=== PATIENT | female | born 1975 | race Caucasian/White ===

== ENCOUNTER 2021-10-24 10:16 | Emergency (ER) | payer SELFPAY ==
--- OUTSIDE RECORDS SUMMARY | 2021-10-24 10:21 | XMS REPORT | Continuity of Care Document ---
:1975 Author Organization [facility] Address [address] [place] [address] Dr. Isaacs [address] [place] [id number] Care Team Providers Name Role Phone Hui PAC, S Attending Clinician Veronica INDUSTRY CONSULTANT, B Attending Clinician Doctor Unassigned, Name Attending Clinician Unavailable Ba Attending Clinician Provider, Urgent Care Attending Clinician Unavailable Jose G VARGAS Attending Clinician JOSE G Attending Clinician Unavailable Lexx JO Attending Clinician Pietro JO Attending Clinician LEXX Attending Clinician Unavailable Juliann HORTONP, T Attending Clinician Pietro JO Admitting Clinician Problems Condition Condition Condition Status Onset Resolution Last Treating Co mments Source Name Details Category Date Date Treatment Clinician Date Intentiona Intentiona Disease Active U nivers l l 5-02 [place]y [place]hen[place] amine amine 00 Medical overdose overdose Branch IUFD IUFD Disease Active Univers (intrauter (intrauter 04-02 [place] ) 00 Medical [place] Allergies, Adverse Reactions, Alerts Allergy Allergy Status Severity Reaction(s) Onset Inactive Treating Comm ents Source Name Type Date Date Clinician Diphenhy Propensi Active Other - See PT passe s Univers dramine ty to comments 6 out ity of Hcl adverse 00:00: [place] reaction 00 Medical s Branch DIPHENHY DRUG Active Dizziness Unive rs DRAMINE INGREDI 6- ity of HCL 00:00: [place] 00 Medical Branch Social History Social Habit Start Date Stop Date Quantity Comments Source Exposure to Not sure [facility] SARS-CoV-2 (event) Medica l Branch Sex Assigned At [facility] Medical Branch Tobacco use and 2020-11-15 2020-11-15 Never used [facility] exposure 00:00:00 00:00:00 Medical Branch History [facility] 2020-02-11 2020-02-11 13 [facility] Education 00:00:00 00:00:00 Medical Branch History [facility] 2020-02-11 2020-02-11 4 [facility] Financial 00:00:00 00:00:00 Medical Branch History [facility] Food 2020-02-11 2020-02-[address] [facility] ity [facility] Worry 00:00:00 00:00:00 Medical Branch History [facility] Food 2020-02-11 2020-02-[address] [facility] ity [facility] Scarcity 00:00:00 00:00:00 Medical Branch History [facility] 2020-02-11 2020-02-11 2 [facility] Transport Med 00:00:00 00:00:00 Medical Bra nch History [facility] 2020-02-11 2020-02-11 2 [facility] Transport Non-Med 00:00:00 00:00:00 Medical Branch Smoking Status Start Date Stop Date Source Never smoker [facility] Branch Unknown if ever smoked [facility] Medical [place] Medications Ordered Filled Start Stop Current Ordering Indication Dosage Frequency Signature Comments Components Source Medication Medication Date Date Medication? Clinician (SIG) Name Name traMADoL No 50mg 50 mg, Univer s (ULTRAM) 11-16 Oral, ity of tablet 50 00:00: 23:02 ONCE, 1 [place] mg 00 :00 dose, Evel[facility] Medical 11/15/20 at Branch 1800, Routine ondansetron 2020- No 4mg 4 mg, Slow Univers (ZOFRAN 2- IV Push, ity of (PF)) 21:15: 20:15 ONCE, 1 [place] injection 4 00 :00 dose, Evelina Med ical mg 11/15/20 at Branch 1515, ALFREDITO traMADoL 50 Yes [id number] 50mg Take 1 Univ ers mg tablet 2-04 tablet by ity o f 00:00: mouth [place] 00 every 6 Medical (six) Branch hours as needed for Pain (scale 7-10) for up to 14 doses. Indication s: acute pain ondansetron Yes [id number] 4mg Take 1 Univers (ZOFRAN 2-04 tablet by ity of ODT) 4 mg 00:00: mouth [place] disintegrat 00 every 8 Medic al ing tablet (eight) Branch hours as needed for Nausea and Vomiting (N/V). esomeprazol Yes [id number] 20mg Take 20 mg Univers e (NEXIUM) 2-04 by mouth ity o f 20 mg 00:00: daily [place] capsule 00 before a Medical meal. Branch cyclobenzap 2019-10- No 10mg 10 mg, Uni vers rine 2-30 12-30 Oral, ity of (FLEXERIL) 22:45: 21:40 ONCE, 1 Good as tablet 10 00 :00 dose, Wed Medic al mg 10/10/20 Branch at 1645, Routine ketorolac 2019-10- No 30mg 30 mg, Unive rs (TORADOL) 230 12-30 Intramuscu ity of injection 22:45: 21:39 lar, ONCE, [place] 30 mg 00 :00 1 dose, Medical Wed Branch 10/10/20 at 1645, ALFREDITO
Fa culty member approving Restricted medication : SAGAR MOORE methocarbam 2019-10 Yes [id number] 750mg Take 1 Univers oL 2-30 tablet by ity of (ROBAXIN-75 00:00: mouth 4 Good as 0) 750 mg 00 (four) Medical tablet times Branch daily as needed for Pain (scale 7-10). ibuprofen 2019-10 Yes [id number] 800mg Take 1 Univers 800 mg 2-30 tablet by ity of tablet 00:00: mouth [place] 00 every 8 Medical (eight) Branch hours as needed for Pain (scale 4-6). methocarbam 2019-10 Yes [id number] 750mg Take 1 Univers oL 2-30 tablet by ity of (ROBAXIN-75 00:00: mouth 4 Good as 0) 750 mg 00 (four) Medical tablet times Branch daily as needed for Pain (scale 7-10). ibuprofen 2019-10 Yes [id number] 800mg Take 1 Univers 800 mg 2-30 tablet by ity of tablet 00:00: mouth [place] 00 every 8 Medical (eight) Branch hours as needed for Pain (scale 4-6). metoprolol 2019-2019- No [id number] 50mg Take 1 Univers tartrate 50 - 06-04 tablet by it y of mg tablet 00:00: 04:59 mouth 2 [place] 00 :00 (two) Medical times Branch daily for 30 days. metoprolol 2019-2019- No [id number] 50mg Take 1 Univers tartrate 50 - 06-04 tablet by it y of mg tablet 00:00: 04:59 mouth 2 [place] 00 :00 (two) Medical times Branch daily for 30 days. cefdinir 2019- No 300mg 300 mg, Univ ers (OMNICEF) 02-11 05-06 Oral, ity of capsule 300 15:00: 12:59 Q12H, 6 [place] mg 00 :00 doses, Medical First dose Branch on [place] 02/12/20 at 1000, Last dose on Thu02/14/20 at 2000, ALFREDITO
Reason for Anti-Infec tive: Documented Infection< br>Documen jeovanny Infection Site: Urine<b r>Duration of Therapy: Other (see Comments) amLODIPine Yes 5mg 5 mg, Univer s (NORVASC) 5-03 Oral, ity of tablet 5 mg 14:00: DAILY, [place] 00 First dose Medical on [facility] 02/12/20 at 0900, Until Discontinu ed, Routine cefTRIAXone 2019- No 1000mg 1,000 mg, Univers (ROCEPHIN) 02-11 05-03 IV ity of 1,000 mg in 14:00: 14:47 [place], [place] NaCl 0.9% 00 :17 DAILY, Medical (NS) 50 mL First dose [facility] MINI-BAG on [place] 02/12/20 at 0900, Until Discontinu ed, 50 mL
Reas on for Anti-Infec tive: Documented Infection< br>Documen jeovanny Infection Site: Urine
D uration of Therapy: Other (see Comments) LORazepam 2019-0 Yes 1mg 1 mg, Slow Un quintin (ATIVAN) 5-03 IV Push, ity of injection 1 06:10: Q4HPRN, Good as mg 26 Starting Medical [place] 02/12/20 Branch at 0110, Until Discontinu ed, STAT, Agitation D5W 0.45% 2020-0 Yes IV Univers NaCl -03 Infusion, ity of (1/2NS) 1 L 02:30: at 125 [place] + KCL 20 00 mL/hr, Medical mEq CONTINUOUS Branch , Starting 02/11/20 at 2130, Until Discontinu ed, Routine KCL 2019-0 2020- No 10meq 10 mEq, IV Unive rs (POTASSIUM 02-11- Piggyback, it y of CHLORIDE) 02:00: 03:30 Q1H, 2 [place] 10 mEq in 00 :00 doses, Medical NaCl 0.9% First dose Bran ch (NS) 100 mL on Sat piggyback 02/11/20 at 2100, Last dose on 02/11/20 at 2200, 100 mL glucagon 2019-0 Yes 1mg 1 mg, Univers (GLUCAGEN 02-11 Intramuscu ity of DIAGNOSTIC 01:09: lar, PRN, [place] KIT) 29 Starting Medical injection 1 02/11/20 Br anch mg at 2008, Until Discontinu ed, ALFREDITO, Blood Glucose < or = 70 mg/dL and patient is unable to swallow or has mental changes. dextrose 50 2019-0 Yes 25mL 25 mL, Univ ers % in water 03 Slow IV ity of (D50W) 01:09: Push, PRN, [place] injection 29 Starting Medica l 25 mL 02/11/20 Branch at 2008, Until Discontinu ed, ALFREDITO, Blood Glucose < or = 70 mg/dL and patient is unable to swallow or has mental status changes. NaCl 0.9% 2019-0 2020- No 1000mL at 999 Uni vers (NS) bolus 02-11-03 mL/hr, ity of infusion 00:15: 00:40 1,000 mL, Good as 1,000 mL 00 :00 IV Medical Infusion, Branch ONCE, 1 dose, 02/11/20 at 191, STAT LORazepam 2019-0 2020- No 1mg 1 mg, Slow U nivers (ATIVAN) 02-11 05-02 IV Push, ity of injection 1 00:15: 23:15 ONCE, 1 [place] mg 00 :00 dose, Sat Medical 02/11/20 at Branch 1915, STAT LORazepam 2019-0 Yes [id number] .5mg Take 1 Un quintin 0.5 mg 5-03 tablet by ity of tablet 00:00: mouth 2 (two) Medical times Branch daily as needed for Anxiety. LORazepam 2020-0 Yes [id number] .5mg Take 1 Un quintin 0.5 mg 5-03 tablet by ity of tablet 00:00: mouth 2 00 (two) Medical times Branch daily as needed for Anxiety. LORazepam 2020-0 Yes [id number] .5mg Take 1 Un quintin 0.5 mg 5-03 tablet by ity of tablet 00:00: mouth 2 (two) Medical times Branch daily as needed for Anxiety. LORazepam 2020-0 Yes [id number] .5mg Take 1 Un quintin 0.5 mg 5-03 tablet by ity of tablet 00:00: mouth 2 (two) Medical times Branch daily as needed for Anxiety. LORazepam 2020-0 Yes [id number] .5mg Take 1 Un quintin 0.5 mg 5-03 tablet by ity of tablet 00:00: mouth 2 (two) Medical times Branch daily as needed for Anxiety. LORazepam 2020-0 Yes [id number] .5mg Take 1 Un quintin 0.5 mg 5-03 tablet by ity of tablet 00:00: mouth 2 (two) Medical times Branch daily as needed for Anxiety. cefdinir 2020-0 2020- No [id number] 300mg Take 1 U nivers 300 mg 5-03 05-07 capsule by ity of capsule 00:00: 04:59 mouth [place] 00 :00 every 12 Medical (twelve) Branch hours for 3 days. cefdinir 2020-0 2020- No [id number] 300mg Take 1 U nivers 300 mg 5-03 05-07 capsule by ity of capsule 00:00: 04:59 mouth [place] 00 :00 every 12 Medical (twelve) Branch hours for 3 days. cefdinir 2020-0 2020- No [id number] 300mg Take 1 U nivers 300 mg 5-03 05-07 capsule by ity of capsule 00:00: 04:59 mouth [place] 00 :00 every 12 Medical (twelve) Branch hours for 3 days. KCL 2020-0 2020- No 10meq 10 mEq, IV Unive rs (POTASSIUM 5-02 05-02 Piggyback, it y of CHLORIDE) 23:30: 22:46 ONCE, 1 [place] 10 mEq in 00 :00 dose, Sat Medic al NaCl 0.9% 02/11/20 at [facility] h (NS) 100 mL 1830, 100 piggyback mL cefTRIAXone 2019- No 1000mg 1,000 mg, Univers (ROCEPHIN) 02-10 IV ity of 1,000 mg in 23:30: 23:16 Piggyback, [place] NaCl 0.9% 00 :00 ONCE, 1 Medical (NS) 50 mL dose, Sat [facility] ch MINI-BAG 02/11/20 at 1830, 50 mL
Reas on for Anti-Infec tive: Documented Infection< br>Documen jeovanny Infection Site: Urine
D uration of Therapy: Other (see Comments) LORazepam 2019- No 1mg 1 mg, Slow U nivers (ATIVAN) 02-10 IV Push, ity of injection 1 22:45: 21:50 ONCE, 1 [place] mg 00 :00 dose, Sat Medical 02/11/20 at [place] 1745, STAT ondansetron 2019- No 4mg 4 mg, Slow Univers (ZOFRAN 02-10 IV Push, ity of (PF)) 22:45: 21:50 ONCE, 1 [place] injection 4 00 :00 dose, Sat Med ical mg 02/11/20 at Branch 1745, ALFREDITO activated 2019- No 50g 50 g, Univer s charcoal-so 02-10 Oral, ity of rbitol 22:45: 21:40 ONCE, 1 [place] (ACTIDOSE/S 00 :00 dose, Sat Med ical ORBITAL) 25 02/11/20 at [facility] gram/120 mL 1745, ALFREDITO suspension 50 g amLODIPine 2019-0 Yes [id number] 5mg Take 1 U nivers 5 mg tablet 1-28 tablet by ity of 00:00: mouth [place] 00 daily. Medical Branch amLODIPine 2019-0 Yes [id number] 5mg Take 1 U nivers 5 mg tablet 1-28 tablet by ity of 00:00: mouth [place] 00 daily. Medical Branch amLODIPine 2019-0 Yes [id number] 5mg Take 1 U nivers 5 mg tablet 1-28 tablet by ity of 00:00: mouth [place] 00 daily. Medical Branch amLODIPine 2020-0 Yes [id number] 5mg Take 1 U nivers 5 mg tablet 1-28 tablet by ity of 00:00: mouth [place] 00 daily. Medical Branch amLODIPine 2020-0 Yes [id number] 5mg Take 1 U nivers 5 mg tablet 1-28 tablet by ity of 00:00: mouth [place] 00 daily. Medical Branch amLODIPine 2020-0 Yes [id number] 5mg Take 1 U nivers 5 mg tablet 1-28 tablet by ity of 00:00: mouth [place] 00 daily. Medical Branch amLODIPine 2020-0 Yes [id number] 5mg Take 1 U nivers 5 mg tablet 1-28 tablet by ity of 00:00: mouth [place] 00 daily. Medical Branch ibuprofen 2019-0 Yes [id number] 800mg Take 1 U nivers 800 mg 2-19 tablet by ity of tablet 00:00: mouth [place] 00 every 6 Medical (six) Branch hours as needed for Pain (scale 4-6). ibuprofen 2019-0 Yes [id number] 800mg Take 1 U nivers 800 mg 2-19 tablet by ity of tablet 00:00: mouth [place] 00 every 6 Medical (six) Branch hours as needed for Pain (scale 4-6). ibuprofen 2019-0 Yes [id number] 800mg Take 1 U nivers 800 mg 2-19 tablet by ity of tablet 00:00: mouth [place] 00 every 6 Medical (six) Branch hours as needed for Pain (scale 4-6). ibuprofen 2019-0 Yes [id number] 800mg Take 1 U nivers 800 mg 2-19 tablet by ity of tablet 00:00: mouth [place] 00 every 6 Medical (six) Branch hours as needed for Pain (scale 4-6). ibuprofen 2019-0 Yes [id number] 800mg Take 1 U nivers 800 mg 2-19 tablet by ity of tablet 00:00: mouth [place] 00 every 6 Medical (six) Branch hours as needed for Pain (scale 4-6). ibuprofen 2019-0 Yes [id number] 800mg Take 1 U nivers 800 mg 2-19 tablet by ity of tablet 00:00: mouth [place] 00 every 6 Medical (six) Branch hours as needed for Pain (scale 4-6). ibuprofen 2019-0 Yes [id number] 800mg Take 1 U nivers 800 mg 2-19 tablet by ity of tablet 00:00: mouth [place] 00 every 6 Medical (six) Branch hours as needed for Pain (scale 4-6). Vital Signs Vital Name Observation Time Observation Value Comments Source Systolic blood 2020-11-15 22:45:00 178 mm[Hg] Univer sity of pressure [place] [facility] Diastolic blood 2020-11-15 22:45:00 105 mm[Hg] Unive rsity of pressure [facility] Heart rate 2020-11-15 22:45:00 85 /min Universi ty of [place] [facility] Respiratory rate 2020-11-15 22:45:00 18 /min Univ ersity of [facility] Oxygen saturation in 2020-11-15 22:45:00 97 /min University of Arterial blood by [facility] Pulse oximetry Branch Body temperature 2020-11-15 19:41:00 37.28 Melly [facility] ersity of [facility] Body weight 2020-11-15 19:41:00 68.947 kg Universi ty [facility] BMI 2020-11-15 19:41:00 22.45 kg/m2 Universi ty [facility] Branch Systolic blood 2020-10-10 21:47:00 170 mm[Hg] Univer sity of [facility] Branch Diastolic blood 2020-10-10 21:47:00 100 mm[Hg] Unive rsity of [facility] Branch Heart rate 2020-10-10 20:43:00 89 /min Universi ty of [place] [facility] Body temperature 2020-10-10 20:43:00 37.06 Melly [facility] Branch Respiratory rate 2020-10-10 20:43:00 20 /min Univ ersity of [facility] Branch Body height 2020-10-10 20:43:00 175.3 cm Universi ty of [place] [facility] Body weight 2020-10-10 20:43:00 68.947 kg Universi ty [facility] Medical Branch BMI 2020-10-10 20:43:00 22.45 kg/m2 Universi ty [facility] Branch Oxygen saturation in 2020-10-10 20:43:00 98 /min University of Arterial blood by [facility] Pulse oximetry Branch Systolic blood 2020-02-13 21:10:00 142 mm[Hg] Univer sity of pressure [facility] Branch Diastolic blood 2020-02-13 21:10:00 94 mm[Hg] Unive rsity of pressure [place] [facility] Heart rate 2020-02-13 21:05:00 100 /min Universi ty of [place] [facility] Body temperature 2020-02-13 21:02:00 36.06 Melly Univ ersity of [place] [facility] Respiratory rate 2020-02-13 21:02:00 17 /min Univ ersity of [place] [facility] Body height 2020-02-13 21:02:00 175.3 cm Universi ty of [place] [facility] Body weight 2020-02-13 21:02:00 67.132 kg Universi ty of [place] [facility] BMI 2020-02-13 21:02:00 21.86 kg/m2 Universi ty of [place] [facility] Oxygen saturation in 2020-02-13 21:02:00 96 /min University of Arterial blood by [facility] Pulse oximetry Branch Systolic blood 2020-02-12 17:00:00 142 mm[Hg] Univer sity of pressure [place] [facility] Diastolic blood 2020-02-12 17:00:00 109 mm[Hg] Unive rsity of pressure [place] [facility] Heart rate 2020-02-12 17:00:00 112 /min Universi ty of [place] [facility] Body temperature 2020-02-12 17:00:00 36.28 Melly Univ ersity of [place] [facility] Respiratory rate 2020-02-12 17:00:00 21 /min Univ ersity of [place] [facility] Oxygen saturation in 2020-02-12 17:00:00 95 /min University of Arterial blood by [facility] Pulse oximetry Branch Body height 2020-02-12 01:14:00 167.6 cm Universi ty of [place] [facility] Body weight 2020-02-12 01:14:00 67.495 kg Universi ty of [place] [facility] BMI 2020-02-12 01:14:00 24.02 kg/m2 Universi ty of [place] [facility] Systolic blood 2019-11-09 04:39:00 154 mm[Hg] Univer sity of pressure [place] [facility] Diastolic blood 2019-11-09 04:39:00 111 mm[Hg] Unive rsity of pressure [place] [facility] Heart rate 2019-11-09 04:39:00 76 /min Universi ty of [place] [facility] Respiratory rate 2019-11-09 04:39:00 18 /min Univ ersity of [place] [facility] Oxygen saturation in 2019-11-09 04:39:00 98 /min University of Arterial blood by [facility] Pulse oximetry Branch Body temperature 2019-11-09 03:30:[address] [facility] Body height 2019-11-09 02:29:00 175.3 cm [facility] Body weight 2019-11-09 02:29:00 72.576 kg [facility] BMI 2019-11-09 02:29:00 23.63 kg/m2 [facility] Procedures Procedure Date / Time Performing Clinician Source Performed POCT TEST 2020-11-15 21:21:00 Katheryn Ames [facility] URINALYSIS 2020-11-15 21:19:00 Katheryn Ames [facility] LIPASE 2020-11-15 20:13:00 Ames, [facility] COMP. METABOLIC PANEL 2020-11-15 20:13:00 AmesKatheryn bangura [facility] ([id number]) [facility] CBC WITH DIFF 2020-11-15 20:13:00 [place] [facility] CONSENT/REFUSAL FOR 2020-11-15 19:22:43 [facility] Name [facility] NOTICE OF PRIVACY 2020-10-10 20:26:59 Doctor Unassigned, No [facility] PRACTICES Name [facility] CONSENT/REFUSAL FOR 2020-10-10 20:26:45 Doctor Unassigned, [facility]AT[facility] Name [facility] COMP. METABOLIC PANEL 2020-02-12 09:07:00 Merlin Stewart [facility] ([id number]) [facility] CBC WITH DIFFERENTIAL 2020-02-12 09:07:00 Merlin Stewart [facility] LACTIC ACID WHOLE BLOOD 2020-02-12 01:51:[address] [facility] BLOOD CULTURE SCREEN 2020-02-11 22:33:00 Jeanie Hallman [facility] LACTIC ACID WHOLE BLOOD 2020-02-11 22:03:[address] [facility] CRITICAL CARE 2020-02-11 21:55:26 Jeanie Hallman [facility] URINALYSIS 2020-02-11 21:53:00 Jeanie Hallman [facility] ADC / LCC - DRUG SCREEN 2020-02-11 21:53:00 [facility] CORONAVIRUS COVID-19 2020-02-11 21:53:00 Jeanie Hallman [facility] TESTING [facility] ACUTE CARE VENOUS BLOOD 2020-02-11 21:46:00 Jeanie Hallman [facility] GAS [facility] Branch LIPASE 2020-02-11 21:45:00 Jeanie Hallman [facility] MAGNESIUM 2020-02-11 21:45:00 [facility] TEST, SERUM 2020-02-11 21:45:[facility] TROPONIN I 2020-02-11 21:45:00 Lexx [facility] FREE T4 2020-02-11 21:45:00 Jeanie Hallman [facility] THYROID STIMULATING 2020-02-11 21:45:00 Jeanie Hallman [facility] HORMONE [facility] Branch HEPATIC FUNCTION PANEL 2020-02-11 21:45:00 Jeanie Hallman [facility] ([id number]) (ALB,T.PRO,BILI [facility] Branch T,BU/BC,ALT,AST,ALK PHOS) BASIC METABOLIC PANEL 2020-02-11 21:45:00 Jeanie Hallman [facility] (NA, K, CL, CO2, Medical Branch GLUCOSE, BUN, CREATININE, CA) SALICYLATE 2020-02-11 21:45:00 Jeanie Hallman [facility] CBC WITH DIFFERENTIAL 2020-02-11 21:45:00 Jeanie Hallman [facility] PROTHROMBIN TIME / INR 2020-02-11 21:45:00 Jeanie Hallman [facility] ACTIVATED PARTIAL 2020-02-11 21:45:00 Lexx [facility] THRMPLAS MARY [facility] N-TERMINAL PRO-BNP 2020-02-11 21:45:00 Jeanie Hallman [facility] FREE T3 2020-02-11 21:45:00 Jeanie Hallman [facility] PHOSPHORUS 2020-02-11 21:45:00 Merlin Stewart [facility] CREATINE KINASE 2020-02-11 21:45:00 [facility] 2020-02-11 21:37:16 [facility], SERUM 2019-11-09 04:13:00 Mateo Humphreys [facility] BASIC METABOLIC PANEL 2019-11-09 04:13:00 Mateo Humphreys [facility] (NA, K, CL, CO2, Medical Branch GLUCOSE, BUN, CREATININE, CA) CBC WITH DIFFERENTIAL 2019-11-09 04:13:00 Mateo Humphreys [facility] NOTICE OF PRIVACY 2019-11-09 02:07:51 Doctor Unassigned, No Univ [facility] PRACTICES Name [facility] CONSENT/REFUSAL FOR 2019-11-09 02:07:37 Doctor Unassigned, No [facility] DIAGNOSIS AND TREATMENT Name [facility] Encounters Start End Encounter Admission Attending Care Care Encounter Source Date/Time Date/Time Type Type Clinicians Facility Department ID 2021-08-10 Emergency [facility] [id number] Univers 21:52:29 ity of [facility] 2021-08-10 Emergency [facility] [id number] Univers 13:54:08 ity of [facility] 2020-11-15 2020-11-15 Emergency [facility] [id number] Univers 13:42:00 17:07:00 Katheryn Fields [id number] i ty of [place] [address] [place] [id number] 2020-10-10 2020-10-10 Emergency [facility] [id number] Univers 14:45:00 15:52:00 Rafy Fields [id number] i ty of [place] [id number] [place] [id number] 2020-10-10 2020-10-10 Orders Doctor DRAKE [id number] Univers 00:00:00 00:00:00 Only Unassigned, ROB [id number] ity of [place] [facility] [id number] Good as [id number] [facility] 009 Branch 2020-02-14 2020-02-14 Transition Ranjith Ba [id number] Univers 00:00:00 00:00:00 of Care Shelby Kam [id number] ity of [place] 4[place]7.2.686 [place] [id number] [facility] 403 Branch 2020-02-13 2020-02-13 Urgent Provider, [facility] [id number] Univers 15:50:12 16:52:33 Care Ora Araiza [facility] [id number] ity of [place] [id number] Good as Professio [id number] [facility] [address] [place] [address] 2020-02-13 2020-02-13 Outpatient R JOSE G [facility] [id number] Univers 16:00:00 16:00:00 ORA ity of [facility] 2020-02-11 2020-02-12 Hospital Jeanie Hallman [facility] [id number] Univers 16:56:30 13:25:00 Encounter Sudhakar [place] [id number] ity of [place] 4.2.7.2.686 [facility] [id number] [place] [address] [place] 2020-02-11 2020-02-11 Emergency X LEXX [facility] ERT [id number] Univers 16:33:00 16:33:00 JEANIE ity of [facility] 2019-11-08 2019-11-08 Emergency JuliannMateo [facility] [id number] Univers 21:24:57 23:17:00 T Donnie [id number] i ty of [place] 4.2.7.2.686 [place] [facility] [phone] [address] Results Test Description Test Time Test Comments Results Result Comments Source URINALYSIS 2020-11-15 22:17:00 Test Item Value Reference Range Interpretation Comme nts APPEARANCE (test code = Hazy Clear A 7327391906) COLOR (test code = 7307634023) Yellow Yellow PH (test code = 2801689522) 4.8-8.0 SP GRAVITY (test code = 1.003-1.030 4921700820) GLU U QUAL (test code = Normal Normal 2539111279) BLOOD (test code = 0195915519) Negative Negative KETONES (test code = 6131775454) 20 mg/dL Negative A PROTEIN (test code = 2887-8) Negative Negative UROBILIN (test code = Normal Normal 9402780484) BILIRUBIN (test code = Negative Negative 2596397724) NITRITE (test code = 8669709337) Negative Negative LEUK HELADIO (test code = Negative Negative 8266703188) RBC/HPF (test code = 5668005813) See_Comment [Automated message] The system which ge nerated this result transmit jeovanny reference range: 0 - 3 HP F. The reference range was not used to interpret th is result as normal/abnormal . WBC/HPF (test code = 2714470287) See_Comment [Automated message] The system which ge nerated this result transmit jeovanny reference range: 0 - 5 HP F. The reference range was not used to interpret th is result as normal/abnormal . BACTERIA (test code = Few Negative A 5368643185) MUCOUS (test code = 6672918890) Slight Negative LPF A SQ EPITH (test code = HPF 8468928502) Lab Interpretation (test code = Abnormal 68766-6) [id number]21[facility]00 Test Item Value Reference Range Interpretation Comments POCT PREG (test code = 1605) neg On board controls acceptable with yes C Line (test code = 3574) POCT PREG LOT # (test code = 3575) [id number] POCT PREG TEST DATE (test 06/11/2022 code = 3576) Lab Interpretation (test code = Normal 98521-6) [facility]. METABOLIC PANEL (23906)2020-11-15 20:40:00 Test Item Value Reference Range Interpretation Comments NA (test code = 137 mmol/L 135-145 0708321232) K (test code = 3.5 mmol/L 3.5-5 2831924587) CL (test code = 100 mmol/L 98-108 4506812417) CO2 TOTAL (test code = 28 mmol/L 23-31 1622293784) AGAP (test code = 2-16 5802600429) BUN (test code = 19 mg/dL 7-23 8262848195) GLUCOSE (test code = 82 mg/dL 70-110 5054618362) CREATININE (test code 0.80 mg/dL 0.5-1.04 = 0908099209) TOTAL BILI (test code 0.6 mg/dL 0.1-1.1 = 4464367025) CALCIUM (test code = 9.4 mg/dL 8.6-10.6 9052726704) T PROTEIN (test code = 7.9 g/dL 6.3-8.2 7593178589) ALBUMIN (test code = 4.5 g/dL 3.5-5 0494803397) ALK PHOS (test code = 85 U/L 34-122 0483291142) ALTv (test code = 9 U/L 5-35 1742-6) AST(SGOT) (test code = 25 U/L 13-40 1134415717) eGFR Calculation mL/min/1.73m2 (Non-) (test code = 0204721686) eGFR Calculation mL/min/1.73m2 () (test code = 9607866932) TERESA (test code = TERESA) Association of Glomerular Filtration Rate (GFR) and Staging of Kidney Disease* + -+ + ---+| GFR (mL/min/1.73 m2) ?| With Kidney Damage ?| ?Without Kidney Damage+ -------+ ------+ ---------+| ?>90 ?| ?Stage one ?| ? Normal ?+ --+ -+ ----+| ?60-89 ?| ?Stage two ?| ? Decreased GFR ? + -+ + ---+| ?30-59 ?| ?Stage three ?| ? Stage three ? + -+ + ---+| ?15-29 ?| ?Stage four ? | ? Stage four ?+ --+ -+ ----+| ?<15 (or dialysis) ? ?| ?Stage five ? | ? Stage five ?+ --+ -+ ----+ *Each stage assumes the associated GFR level has been in effect for at least three months. ?Stages 1 to 5, with or without kidney disease, indicate chronic kidney disease. Notes: Determination of stages one and two (with eGFR >59mL/min/1.73 m2) requires estimation of kidney damage for at least three months as defined by structural or functional abnormalities of the kidney, manifested by either:Pathological abnormalities or Markers of kidney damage (including abnormalities in the composition of the blood or urine or abnormalities in imaging tests). [facility] 20[facility]40:[facility] Test Item Value Reference Range Interpretation Comments LIPASE (test code = 7763528806) 77 U/L 0-220 Lab Interpretation (test code = Normal 19717-8) [facility] WITH [id number] 20:23:00 Test Item Value Reference Range Interpretation Comments WBC (test code = See_Comment [Automated message] 8690-2) The system [employer] generated this result transmitted ref erence range: 4.30 - 1 1.10 10*3/?L. The re ference range was not u sed to interpret this result as normal/abnor mal. RBC (test code = See_Comment [Automated message] 439-8) The system [employer] generated this result transmitted ref erence range: 3.93 - 5 .25 10*6/?L. The re ference range was not u sed to interpret this result as normal/abnor mal. HGB (test code = 13.7 g/dL 11.6-15 718-7) HCT (test code = 40.8 % 35.7-45.2 4544-3) MCV (test code = 87.7 fL 80.6-95.5 787-2) MCH (test code = 29.5 pg 25.9-32.8 785-6) MCHC (test code = 33.6 g/dL 31.6-35.1 786-4) RDW-SD (test code 39.8 fL 39-49.9 = 05049-2) RDW-CV (test code 12.4 % 12-15.5 = 788-0) PLT (test code = See_Comment [Automated message] 307-3) The system [employer] generated this result transmitted ref erence range: 166 - 35 8 10*3/?L. The re ference range was not u sed to interpret this result as normal/abnor mal. MPV (test code = 11.1 fL 9.5-12.9 34855-3) NRBC/100 WBC (test See_Comment [Automat ed message] code = 6090814824) The syste m which generated this result transmitted ref erence range: 0.0 - 10 .0 /100 WBCs. The refer ence range was not u sed to interpret this result as normal/abnor mal. NRBC x10^3 (test <0.01 See_Comment [Automated message] code = 2205478258) The syste m which generated this result transmitted ref erence range: 10*3/?L. The reference range was not used to interpr et this result as normal/abnormal . GRAN MAT (NEUT) % 65.4 % (test code = 770-8) IMM GRAN % (test 0.30 % code = 2572022502) LYMPH % (test code 25.7 % = 736-9) MONO % (test code 6.7 % = 5905-5) EOS % (test code = 1.4 % 713-8) BASO % (test code 0.5 % = 706-2) GRAN MAT 4.78 10*3/uL 1.88-7.09 x10^3(ANC) (test code = 8174733047) IMM GRAN x10^3 <0.03 0-0.06 (test code = 6345533440) LYMPH x10^3 (test 1.88 10*3/uL 1.32-3.29 code = 731-0) MONO x10^3 (test 0.49 10*3/uL 0.33-0.92 code = 742-7) EOS x10^3 (test 0.10 10*3/uL 0.03-0.39 code = 711-2) BASO x10^3 (test 0.04 10*3/uL 0.01-0.07 code = 704-7) [facility]. METABOLIC PANEL (58565)2020-02-12 11:29:00 Test Item Value Reference Range Interpretation Comments NA (test code = 137 mmol/L 135-145 3228440153) K (test code = 3.9 mmol/L 3.5-5 7734536133) CL (test code = 104 mmol/L 98-108 4190791837) CO2 TOTAL (test code = 22 mmol/L 23-31 L 0259720017) AGAP (test code = 2-16 7528748893) BUN (test code = 6 mg/dL 7-23 L 2841252202) GLUCOSE (test code = 163 mg/dL 70-110 H 7207348548) CREATININE (test code = 0.57 mg/dL 0.5-1.04 2277859208) TOTAL BILI (test code = 0.4 mg/dL 0.1-1.7 0567648244) CALCIUM (test code = 9.3 mg/dL 8.6-10.6 5335564445) T PROTEIN (test code = 7.3 g/dL 6.3-8.2 6103115145) ALBUMIN (test code = 4.2 g/dL 3.5-5 0621601481) ALK PHOS (test code = 72 U/L 34-122 2333441749) ALTv (test code = 10 U/L 5-35 1742-6) AST(SGOT) (test code = 20 U/L 13-40 7909015146) eGFR Calculation mL/min/1.73m2 (Non-) (test code = 0562463043) eGFR Calculation mL/min/1.73m2 () (test code = 6261588655) TERESA (test code = TERESA) Association of Glomerular Filtration Rate (GFR) and Staging of Kidney Disease* + --+ --+ ------+| GFR (mL/min/1.73 m2) ?| With Kidney Damage ?| ?Without Kidney Damage+ --------+ --------+ +| ?>90 ?| ?Stage one ?| ? Normal ?+ ---+ ---+ -------+| ?60-89 ?| ?Stage two ?| ? Decreased GFR ? + --+ --+ ------+| ?30-59 ?| ?Stage three ?| ? Stage three ? + --+ --+ ------+| ?15-29 ?| ?Stage four ? | ? Stage four ?+ ---+ ---+ -------+| ?<15 (or dialysis) ? ?| ?Stage five ? | ? Stage five ?+ ---+ ---+ -------+ *Each stage assumes the associated GFR level has been in effect for at least three months. ?Stages 1 to 5, with or without kidney disease, indicate chronic kidney disease. Notes: Determination of stages one and two (with eGFR >59mL/min/1.73 m2) requires estimation of kidney damage for at least three months as defined by structural or functional abnormalities of the kidney, manifested by either:Pathological abnormalities or Markers of kidney damage (including abnormalities in the composition of the blood or urine or abnormalities in imaging tests). Lab Interpretation Abnormal (test code = 85659-9) [facility] WITH [id number] 11:08:00 Test Item Value Reference Range Interpretation Comments WBC (test code = See_Comment [Automated 8451-2) message] The sy stem which generated this result transmitted reference range : 4.30 - 11.10 10*3/?L. The reference range was not used to interpret this result as normal/abnormal . RBC (test code = See_Comment [Automated 454-8) message] The sy stem which generated this result transmitted reference range : 3.93 - 5.25 10*6/?L. The reference range was not used to interpret this result as normal/abnormal . HGB (test code = 13.7 g/dL 11.6-15 718-7) HCT (test code = 41.5 % 35.7-45.2 4544-3) MCV (test code = 88.7 fL 80.6-95.5 787-2) MCH (test code = 29.3 pg 25.9-32.8 785-6) MCHC (test code = 33.0 g/dL 31.6-35.1 786-4) RDW-SD (test code = 41.2 fL 39-49.9 24477-8) RDW-CV (test code = 12.6 % 12-15.5 788-0) PLT (test code = See_Comment [Automated 067-3) message] The sy stem which generated this result transmitted reference range : 166 - 358 10*3/ ?L. The reference r zac was not used to interpret this result as normal/abnormal . MPV (test code = 12.0 fL 9.5-12.9 58655-9) NRBC/100 WBC (test See_Comment [Automat ed code = 9751400181) message] The system which generated this result transmitted reference range : 0.0 - 10.0 /100 WBCs. The refer ence range was not u sed to interpret th is result as normal/abnormal . NRBC x10^3 (test code <0.01 See_Comment [Auto mated = 9578179303) message] The s ystem which generated this result transmitted reference range : 10*3/?L. The reference range was not used to interpret this result as normal/abnormal . GRAN MAT (NEUT) % 78.7 % (test code = 770-8) IMM GRAN % (test code 0.30 % = 8390985762) LYMPH % (test code = 15.6 % 736-9) MONO % (test code = 5.0 % 5905-5) EOS % (test code = 0.1 % 713-8) BASO % (test code = 0.3 % 706-2) GRAN MAT x10^3(ANC) 8.05 10*3/uL 1.88-7.09 H (test code = 0886728357) IMM GRAN x10^3 (test 0.03 10*3/uL 0-0.06 code = 8451116917) LYMPH x10^3 (test code 1.60 10*3/uL 1.32-3.29 = 731-0) MONO x10^3 (test code 0.51 10*3/uL 0.33-0.92 = 742-7) EOS x10^3 (test code = <0.03 0.03-0.39 L 711-2) BASO x10^3 (test code 0.03 10*3/uL 0.01-0.07 = 704-7) Lab Interpretation Abnormal (test code = 23956-1) [facility] CenterL[facility] Whole [id number] 01:55:00 Test Item Value Reference Range Interpretation Comments LACTIC ACID (test code = 2.20 mmol/L 0.5-2.2 9892625609) Lab Interpretation (test code = Normal 29382-4) [facility] CenterMAGNESIUM2020-05-03 01:20:00 Test Item Value Reference Range Interpretation Comments MAGNESIUM (test code = 6766585085) 1.9 mg/dL 1.7-2.4 Lab Interpretation (test code = Normal 79785-4) [facility] CenterPHOSPHORUS2020-05-03 01:20:00 Test Item Value Reference Range Interpretation Comments PHOSPHORUS (test code = 1811544046) 2.1 mg/dL 2.5-5 L Lab Interpretation (test code = Abnormal 44200-4) [facility] [id number] 23:16:00 Test Item Value Reference Range Interpretation Comments FREE T4 (test code = 5027004146) 1.56 ng/dL 0.78-2.2 Lab Interpretation (test code = Normal 96432-1) [facility] CenterACETAMINOPHEN2020-05-02 23:01:00 Test Item Value Reference Range Interpretation Comments ACETAMINOP (test code = <10.0 10-30 L 3208037616) TERESA (test code = TERESA) Toxic: Greater than 200 ug/mL @ 4 hour post ingestion or greater than 50 ug/mL @ 12 hour post ingestion Lab Interpretation (test Abnormal code = 13647-0) [facility] CenterSALICYLATE2020-05-02 23:01:00 Test Item Value Reference Range Interpretation Comments SALICYLATE (test code <10 mg/L = 7875152155) TERESA (test code = TERESA) Therapeutic Range: ? Analgesic and Antipyretic Use ? 20-100 mg/L ? ? Anti-Inflammatory Use ? 100-250 mg/L Toxic Range: ? Greater than 300 mg/L [facility] CenterTHYROID STIMULATING [id number] 22:48:00 Test Item Value Reference Range Interpretation Comments TSH (test code = See_Comment [Automated message] 5813062044) The system [employer] generated this result transmitted ref erence range: 0.45 - 4 .70 mIU/L. The refe rence range was not u sed to interpret this result as normal/abnor mal. Lab Interpretation (test Normal code = 26319-9) [facility] [id number] 22:35:00 Test Item Value Reference Range Interpretation Comments FREE T3 (test code = 9416711712) 3.32 pg/mL 2.77-5.27 Lab Interpretation (test code = Normal 91055-9) [facility] CenterTroponin [id number] 22:30:00 Test Item Value Reference Range Interpretation Comments TROPONIN I (test <0.012 See_Comment [Automated code = 8829885690) message] The system which generated this result transmitted reference range : <=0.034 ng/mL. The reference range was not used to interpr et this result as normal/abnormal . TERESA (test code = Equal or Less than TERESA) 0.034 ng/ml---Normal ?Note: Cardiac troponin begins to rise 3-4 hours after the onset of ischemia. Repeat in 4-6 hours if the sample was drawn within 3-4 hours of the onset of the symptom and found normal. Between 0.035 and 0.120 ng/mL--- Borderline. Questionable myocardial injury or necrosis ? ?Note: Serial measurement may be necessary to confirm or exclude the diagnosis of myocardial injury or necrosis; Clinical correlation (symptoms, EKGs, imaging studies, and others) required; Repeat in 4-6 hours if clinically indicated. ? Equal or Higher than 0.121 ng/mL---Abnormal. Myocardial Injury or Necrosis Likely ? Biotin has been reported to cause a negative bias, interpret results relative to patient's use of biotin. ? Lab Interpretation Normal (test code = 97180-6) [facility] CenterN-TERMINAL [id number] 22:26:00 Test Item Value Reference Range Interpretation Comments NT-proBNP (test code 61 pg/mL See_Comment [Autom ated = 9824624852) message] The system which generated this result transmitted reference range : <=125. The reference range was not used to interpret this result as normal/abnormal . TERESA (test code = TERESA) Biotin has been reported to cause a negative bias, interpret results relative to patient's use of biotin. Lab Interpretation Normal (test code = 78912-1) [facility] CenterCORONAVIRUS COVID-19 [id number] 22:23:00 Test Item Value Reference Range Interpretation Comments SARS-CoV-2 (test code = Not Detected Not Detected 55463-6) TERESA (test code = TERESA) ID NOW COVID-19 Assay is an isothermal nucleic acid amplification test intended for the qualitative detection of nucleic acid from SARS-CoV-2 viral RNA in nasopharyngeal ([employer]PERATOR) specimens. It is used under Emergency Use Authorization (EUA) by FDA. The limit of detection (LOD) of the assay is 125 Genome Equivalents/mL. A positive result is indicative of the presence of SARS-CoV-2 RNA. ?Clinical correlation with patient history and other diagnostic information is necessary to determine patient infection status. A negative (Not Detected) result does not preclude SARS-CoV-2 infection. Clinical correlation with patient history and other diagnostic information should be used in patient management decisions. Invalid: Please collect a new specimen for repeat patient testing if clinically indicated. Lab Interpretation Normal (test code = 51877-3) [facility] / [facility] - DRUG SCREEN [id number] 22:20:00 Test Item Value Reference Range Interpretation Comments BENZO U (test code = Negative Negative 4967013531) JAYJAY U (test code = Negative Negative 2157115511) AMPHET (test code = Negative Negative 2447411508) THC (test code = Negative Negative 6801288962) METHADONE (test code = Negative Negative 7400575659) Meth U (test code = Negative Negative 1053037119) OPIATES (test code = Negative Negative 6772611105) Cocaine Metabolite (test Negative Negative code = 1681958808) PROPOXY (test code = Negative Negative 6796793404) Tric U (test code = Negative Negative 4094743686) PCP (test code = Negative Negative 2080978303) OXYCOD (test code = Negative Negative 5334732143) TERESA (test code = TERESA) Urine Drug Cutoff Ranges Benzodiazepines: ? ? 150 ng/mLBarbiturates: ?200 ng/mLAmphetamine: ? 500 ng/mLCannabinoids: ?50 ?ng/mLMethadone: ? 200 ng/mLMethamphetamine: ? ? 500 ng/mL Opiates: ? 100 ng/mL or 2000 ng/mLCocaine: ? 150 ng/mLPropoxyphene: ?300 ng/mLTricyclics: ?300 ng/mLOxycodone: ? 100 ng/mLPCP: ? 25 ?ng/mL The results are to be used only for medical (i.e., treatment) purposes. Unconfirmed screening results must not be used for non-medical purposes (e.g., employment testing, legal testing). Lab Interpretation (test Normal code = 89909-9) [facility] Metabolic Panel (NA, K, CL, CO2, GLUCOSE, BUN, CREATININE, CA)2020-02-11 22:18:00 Test Item Value Reference Range Interpretation Comments NA (test code = 143 mmol/L 135-145 5812729678) K (test code = 2.6 mmol/L 3.5-5 LL 0072098257) CL (test code = 103 mmol/L 98-108 8332851826) CO2 TOTAL (test code = 27 mmol/L 23-31 1919138895) AGAP (test code = 2-16 2142663293) BUN (test code = 17 mg/dL 7-23 0291890237) GLUCOSE (test code = 215 mg/dL 70-110 H 8369686135) CREATININE (test code = 0.87 mg/dL 0.5-1.04 9609870828) CALCIUM (test code = 10.2 mg/dL 8.6-10.6 5693567635) eGFR Calculation mL/min/1.73m2 (Non-) (test code = 8770328755) eGFR Calculation mL/min/1.73m2 () (test code = 4431965552) TERESA (test code = TERESA) Association of Glomerular Filtration Rate (GFR) and Staging of Kidney Disease* + --+ --+ ------+| GFR (mL/min/1.73 m2) ?| With Kidney Damage ?| ?Without Kidney Damage+ --------+ --------+ +| ?>90 ?| ?Stage one ?| ? Normal ?+ ---+ ---+ -------+| ?60-89 ?| ?Stage two ?| ? Decreased GFR ? + --+ --+ ------+| ?30-59 ?| ?Stage three ?| ? Stage three ? + --+ --+ ------+| ?15-29 ?| ?Stage four ? | ? Stage four ?+ ---+ ---+ -------+| ?<15 (or dialysis) ? ?| ?Stage five ? | ? Stage five ?+ ---+ ---+ -------+ *Each stage assumes the associated GFR level has been in effect for at least three months. ?Stages 1 to 5, with or without kidney disease, indicate chronic kidney disease. Notes: Determination of stages one and two (with eGFR >59mL/min/1.73 m2) requires estimation of kidney damage for at least three months as defined by structural or functional abnormalities of the kidney, manifested by either:Pathological abnormalities or Markers of kidney damage (including abnormalities in the composition of the blood or urine or abnormalities in imaging tests). Lab Interpretation Abnormal (test code = 34852-4) [facility] CenterHepatic Function Panel (ALB, T.PRO, BILI T, BU/BC, ALT, AST, ALK PHOS)2020-02-11 22:18:00 Test Item Value Reference Range Interpretation Comments TOTAL BILI (test code = 5266854248) 0.5 mg/dL 0.1-1.1 BILI UNCON (test code = 4490911577) 0.6 mg/dL 0.1-1.1 BILI CONJ (test code = 4437178809) 0.0 mg/dL 0-0.3 T PROTEIN (test code = 1500111500) 8.8 g/dL 6.3-8.2 H ALBUMIN (test code = 4898253570) 5.2 g/dL 3.5-5 H ALK PHOS (test code = 8060164569) 97 U/L 34-122 ALTv (test code = 1742-6) 12 U/L 5-35 AST(SGOT) (test code = 3456993553) 26 U/L 13-40 Lab Interpretation (test code = Abnormal 42034-5) [facility] CenterPREGNANCY TEST, [id number] 22:18:00 Test Item Value Reference Range Interpretation Comments PREG SERUM (test code Negative = 2761633751) TERESA (test code = TERESA) Less than 10 IU/L. ?If low titer or ectopic is suspected, resubmit specimen in 48-72 hours. [facility] CenterLipase [id number] 22:17:00 Test Item Value Reference Range Interpretation Comments LIPASE (test code = 9217704014) 69 U/L 0-220 Lab Interpretation (test code = Normal 35226-8) [facility] CenterCREATINE [id number] 22:17:00 Test Item Value Reference Range Interpretation Comments CK (test code = 0064168457) 75 U/L 33-194 Lab Interpretation (test code = Normal 17795-7) [facility] CenterProthrombin Time (PT) / [id number] 22:16:00 Test Item Value Reference Range Interpretation Comments PROTIME PATIENT (test See_Comment [Auto mated message] code = 5964-2) The system wh ich generated this result transmitted ref erence range: 12.0 - 1 4.7 Seconds. The re ference range was not u sed to interpret this result as normal/abnor mal. INR (test code = 6301-6) Nor mal INR <1.1; Warfarin Therap eutic range 2.0 to 3. 0 or 2.5 to 3.5, dep ending upon the indica tions. Lab Interpretation (test Normal code = 75871-3) [facility] CenteraPTT2020-05-02 22:14:00 Test Item Value Reference Range Interpretation Comments APTT Patient (test See_Comment [Automat ed code = 3173-2) message] The system which generated this result transmitted reference range : 23 - 38 Seconds . The reference range was not used to interpr et this result as normal/abnormal . TERESA (test code = TERESA) The [facility] patient population mean normal value for aPTT is 30 seconds. Lab Interpretation Normal (test code = 33320-2) [facility] CenterUrinalysis2020-05-02 22:13:00 Test Item Value Reference Range Interpretation Comments APPEARANCE (test code = Hazy Clear A 3474939734) COLOR (test code = Yellow Yellow 0337314132) PH (test code = 4.8-8.0 9062351432) SP GRAVITY (test code = 1.003-1.030 4583524078) GLU U QUAL (test code = Normal Normal 6098755039) BLOOD (test code = Negative Negative 0590608723) KETONES (test code = 5 mg/dL Negative A 4730364399) PROTEIN (test code = 30 mg/dL Negative A 2887-8) UROBILIN (test code = 4.0 mg/dL Normal A 0262485493) BILIRUBIN (test code = Negative Negative 0861367038) NITRITE (test code = Positive Negative A 6656594251) LEUK HELADIO (test code = 75/uL Negative A 6912936638) RBC/HPF (test code = See_Comment H [Autom ated message] 2684967125) The system [employer] generated this result transmit jeovanny reference range : 0 - 3 HPF. The refe rence range was not u sed to interpret th is result as normal/abnormal . WBC/HPF (test code = See_Comment H [Autom ated message] 3113667710) The system [employer] generated this result transmit jeovanny reference range : 0 - 5 HPF. The refe rence range was not u sed to interpret th is result as normal/abnormal . BACTERIA (test code = Many Negative A 6732159174) MUCOUS (test code = Moderate Negative LPF A 4459267721) SQ EPITH (test code = HPF 8965863450) HYAL CAST (test code = See_Comment H [Aut omated message] 5950957815) The system [employer] generated this result transmit jeovanny reference range : <=2 LPF. The refere nce range was not u sed to interpret th is result as normal/abnormal . Lab Interpretation (test Abnormal code = 75742-2) [facility] WITH [id number] 22:06:00 Test Item Value Reference Range Interpretation Comments WBC (test code = See_Comment [Automated message] 6690-2) The system [employer] generated this result transmitted ref erence range: 4.30 - 1 1.10 10*3/?L. The re ference range was not u sed to interpret this result as normal/abnor mal. RBC (test code = See_Comment [Automated message] 789-8) The system [employer] generated this result transmitted ref erence range: 3.93 - 5 .25 10*6/?L. The re ference range was not u sed to interpret this result as normal/abnor mal. HGB (test code = 14.7 g/dL 11.6-15 718-7) HCT (test code = 44.5 % 35.7-45.2 4544-3) MCV (test code = 88.6 fL 80.6-95.5 787-2) MCH (test code = 29.3 pg 25.9-32.8 785-6) MCHC (test code = 33.0 g/dL 31.6-35.1 786-4) RDW-SD (test code 41.5 fL 39-49.9 = 45165-7) RDW-CV (test code 12.8 % 12-15.5 = 788-0) PLT (test code = See_Comment [Automated message] 777-3) The system whic h generated this result transmitted ref erence range: 166 - 35 8 10*3/?L. The re ference range was not u sed to interpret this result as normal/abnor mal. MPV (test code = 11.4 fL 9.5-12.9 32345-6) NRBC/100 WBC (test See_Comment [Automat ed message] code = 3566462723) The syste m which generated this result transmitted ref erence range: 0.0 - 10 .0 /100 WBCs. The refer ence range was not u sed to interpret this result as normal/abnor mal. NRBC x10^3 (test <0.01 See_Comment [Automated message] code = 3795763869) The syste m which generated this result transmitted ref erence range: 10*3/?L. The reference range was not used to interpr et this result as normal/abnormal . GRAN MAT (NEUT) % 65.1 % (test code = 770-8) IMM GRAN % (test 0.30 % code = 4329085353) LYMPH % (test code 27.3 % = 736-9) MONO % (test code 6.3 % = 5905-5) EOS % (test code = 0.6 % 713-8) BASO % (test code 0.4 % = 706-2) GRAN MAT 5.88 10*3/uL 1.88-7.09 x10^3(ANC) (test code = 1312805959) IMM GRAN x10^3 0.03 10*3/uL 0-0.06 (test code = 8791701453) LYMPH x10^3 (test 2.47 10*3/uL 1.32-3.29 code = 731-0) MONO x10^3 (test 0.57 10*3/uL 0.33-0.92 code = 742-7) EOS x10^3 (test 0.05 10*3/uL 0.03-0.39 code = 711-2) BASO x10^3 (test 0.04 10*3/uL 0.01-0.07 code = 704-7) [facility] [id number] 22:04:00 Test Item Value Reference Range Interpretation Comments LACTIC ACID (test code = 3.56 mmol/L 0.3-2.6 H 5530912712) Lab Interpretation (test code = Abnormal 87326-0) [facility] CARE VENOUS BLOOD [id number] 22:00:00 Test Item Value Reference Range Interpretation Comments PH (test code = 7.32-7.42 H 1311554496) PCO2 DAILY (test code = See_Comment L [Auto mated message] 6881653799) The system [employer] generated this result transmitted ref erence range: 41 - 51 mmHg. The reference r zac was not used to interpret this result as normal/abnor mal. PO2 DAILY (test code = See_Comment H [Autom ated message] 7691396881) The system [employer] generated this result transmitted ref erence range: 25 - 40 mmHg. The reference r zac was not used to interpret this result as normal/abnor mal. HCO3 DAILY (test code = See_Comment [Auto mated message] 8134840310) The system [employer] generated this result transmitted ref erence range: 24 - 28 mEq/L. The reference r zac was not used to interpret this result as normal/abnor mal. AC VBE(BEAKER) (test mEq/L code = 8207336604) Lab Interpretation (test Abnormal code = 33995-3) [facility] [id number] 21:55:26Jeanie Hallman MD ? ? 02/11/2020 ?4:55 PMCritical CarePerformed by: Jeanie Hallman MDAuthorized by: Jeanie Hallman MD Critical care provider statement: ?Critical care time (minutes): ?60 ?Critical care was necessary to treat or prevent imminent or life-threatening deterioration of the following conditions: ?Toxidrome ?Critical care was time spent personally by me on the following activities: ?Development of treatment plan with patient or surrogate, discussions with consultants, discussions with primary provider, evaluation of patient's response to treatment, ordering and review of radiographic studies, ordering and review of laboratory studies, ordering and performing treatments and interventions, pulse oximetry, re-evaluation of patient's condition and [facility] 2019-11-09 04:51:00 Test Item Value Reference Range Interpretation Comments WBC (test code = See_Comment [Automated 7990-2) message] The sy stem which generated this result transmitted reference range : 4.30 - 11.10 10*3/?L. The reference range was not used to interpret this result as normal/abnormal . RBC (test code = See_Comment H [Automated 259-8) message] The sy stem which generated this result transmitted reference range : 3.93 - 5.25 10*6/?L. The reference range was not used to interpret this result as normal/abnormal . HGB (test code = 15.7 g/dL 11.6-15 H 718-7) HCT (test code = 48.7 % 35.7-45.2 H 4544-3) MCV (test code = 87.1 fL 80.6-95.5 787-2) MCH (test code = 28.1 pg 25.9-32.8 785-6) MCHC (test code = 32.2 g/dL 31.6-35.1 786-4) RDW-SD (test code = 42.5 fL 39-49.9 80069-8) RDW-CV (test code = 13.2 % 12-15.5 788-0) PLT (test code = See_Comment [Automated 777-3) message] The sy stem which generated this result transmitted reference range : 166 - 358 10*3/ ?L. The reference r zac was not used to interpret this result as normal/abnormal . MPV (test code = 12.2 fL 9.5-12.9 14496-9) NRBC/100 WBC (test See_Comment [Automat ed code = 9655023045) message] The system which generated this result transmitted reference range : 0.0 - 10.0 /100 WBCs. The refer ence range was not u sed to interpret th is result as normal/abnormal . NRBC x10^3 (test code <0.01 See_Comment [Auto mated = 2566265858) message] The s ystem which generated this result transmitted reference range : 10*3/?L. The reference range was not used to interpret this result as normal/abnormal . GRAN MAT (NEUT) % 55.1 % (test code = 770-8) IMM GRAN % (test code 0.80 % = 0645288555) LYMPH % (test code = 36.2 % 736-9) MONO % (test code = 5.5 % 5905-5) EOS % (test code = 1.6 % 713-8) BASO % (test code = 0.8 % 706-2) GRAN MAT x10^3(ANC) 5.74 10*3/uL 1.88-7.09 (test code = 5290363922) IMM GRAN x10^3 (test 0.08 10*3/uL 0-0.06 H code = 1112657672) LYMPH x10^3 (test code 3.76 10*3/uL 1.32-3.29 H = 731-0) MONO x10^3 (test code 0.57 10*3/uL 0.33-0.92 = 742-7) EOS x10^3 (test code = 0.17 10*3/uL 0.03-0.39 711-2) BASO x10^3 (test code 0.08 10*3/uL 0.01-0.07 H = 704-7) Lab Interpretation Abnormal (test code = 10834-6) [facility] METABOLIC PANEL (NA, K, CL, CO2, GLUCOSE, BUN, CREATININE, CA)2019-11-09 04:33:00 Test Item Value Reference Range Interpretation Comments NA (test code = 139 mmol/L 135-145 6476944093) K (test code = 4.4 mmol/L 3.5-5 1527721027) CL (test code = 102 mmol/L 98-108 7438346685) CO2 TOTAL (test code = 27 mmol/L 23-31 2514695499) AGAP (test code = 2-16 0413507416) BUN (test code = 24 mg/dL 7-23 H 4313467847) GLUCOSE (test code = 106 mg/dL 70-110 1969016557) CREATININE (test code = 0.88 mg/dL 0.5-1.04 2279724203) CALCIUM (test code = 10.0 mg/dL 8.6-10.6 9603690833) eGFR Calculation mL/min/1.73m2 (Non-) (test code = 0698329348) eGFR Calculation mL/min/1.73m2 () (test code = 4719754972) TERESA (test code = TERESA) Association of Glomerular Filtration Rate (GFR) and Staging of Kidney Disease* + --+ --+ ------+| GFR (mL/min/1.73 m2) ?| With Kidney Damage ?| ?Without Kidney Damage+ --------+ --------+ +| ?>90 ?| ?Stage one ?| ? Normal ?+ ---+ ---+ -------+| ?60-89 ?| ?Stage two ?| ? Decreased GFR ? + --+ --+ ------+| ?30-59 ?| ?Stage three ?| ? Stage three ? + --+ --+ ------+| ?15-29 ?| ?Stage four ? | ? Stage four ?+ ---+ ---+ -------+| ?<15 (or dialysis) ? ?| ?Stage five ? | ? Stage five ?+ ---+ ---+ -------+ *Each stage assumes the associated GFR level has been in effect for at least three months. ?Stages 1 to 5, with or without kidney disease, indicate chronic kidney disease. Notes: Determination of stages one and two (with eGFR >59mL/min/1.73 m2) requires estimation of kidney damage for at least three months as defined by structural or functional abnormalities of the kidney, manifested by either:Pathological abnormalities or Markers of kidney damage (including abnormalities in the composition of the blood or urine or abnormalities in imaging tests). Lab Interpretation Abnormal (test code = 76973-4) [facility], [id number] 04:31:00 Test Item Value Reference Range Interpretation Comments PREG SERUM (test code Negative = 6499468551) TERESA (test code = TERESA) Less than 10 IU/L. ?If low titer or ectopic is suspected, resubmit specimen in 48-72 hours. [facility]"
[2021-10-24] MEDS ORDERED: KETOROLAC 30 MG/ML INJ ONE (12:39)
[2021-10-24] MEDS ORDERED: DIAZEPAM 5 MG TABLET ONE (12:39)
[2021-10-24] MEDS ORDERED: HYDROCODONE/APAP 5/325 MG TAB ONE (12:39)
--- NOTE | 2021-10-24 12:56 | EDPHYS ---
Physician Documentation [facility] Name: Linda Urena Age: 46 yrs Sex: Female : 1975 Arrival Date: 10/24/2021 Time: 10:19 Bed 11 Private MD: ED Physician Sony Pickens HPI: 10/24 12:52 This 46 yrs old Female presents to ER via Ambulatory with complaints of Shoulder Pain. jm 12:52 The patient or guardian complains of pain. Onset: The symptoms/episode began/occurred jm acutely, 2 day(s) ago. Modifying factors: the symptoms are alleviated by nothing. The symptoms are aggravated by movement. Associated signs and symptoms: Pertinent negatives: abdominal pain, chest pain, diaphoresis, dyspnea. This is a 46-year-old female with no known chronic medical conditions presents emerged department with complaints of left upper back pain which she states developed after lifting. Pain radiates down the left arm. Patient states she is taken ibuprofen without relief. Patient denies chest pain, shortness of breath, unilateral weakness.. 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 - Social history:: Smoking status: Patient denies any tobacco usage or history of. ROS: 12:52 Constitutional: Negative for fever, chills, and weight loss, Cardiovascular: Negative jmm for chest pain, palpitations, and edema, Respiratory: Negative for shortness of breath, cough, wheezing, and pleuritic chest pain. 12:52 MS/extremity: Positive for pain. 12:52 All other systems are negative. Exam: 12:52 Constitutional: This is a well developed, well nourished patient who is awake, alert, jmm and in no acute distress. Head/Face: atraumatic. Eyes: EOMI, no conjunctival erythema appreciated ENT: Moist Mucus Membranes Neck: Trachea midline, Supple Chest/axilla: Normal chest wall appearance and motion. Cardiovascular: Regular rate and rhythm. No edema appreciated Respiratory: Normal respirations, no respiratory distress appreciated Abdomen/GI: Non distended, soft 12:52 Back: Left trapezius pain is reproduced on palpation. 12:52 Musculoskeletal/extremity: ROM: intact in all extremities. 12:52 Skin: Appearance: Color: normal in color. 12:52 Neuro: Motor: is normal. 12:52 Psych: Behavior/mood is pleasant, cooperative. Vital Signs: 10:33 BP 107 / 87; Pulse 94; Resp 16; Temp 97.0; Pulse Ox 99% ; Weight 72.57 kg; Height 5 ft. jh5 9 in. (175.26 cm); Pain 10/10; 10:33 Body Mass Index 23.63 (72.57 kg, 175.26 cm) jh5 MDM: 11:57 Patient medically screened. [facility] 12:54 Data reviewed: vital signs, nurses notes. Counseling: I had a detailed discussion with tanya the patient and/or guardian regarding: the historical points, exam findings, and any diagnostic results supporting the discharge/admit diagnosis, the need for outpatient follow up, to return to the emergency department if symptoms worsen or persist or if there are any questions or concerns that arise at home. ED course: Patient is a patient states feeling much better. I suspect this is most likely muscle spasm secondary trapezius strain. Patient advised follow-up PCP and otherwise given strict return precautions. Patient understood and agrees plan of care. I do not suspect acs or dissection. Administered Medications: 12:43 Drug: HYDROcodone-acetaminophen 5 mg-325 mg 1 tabs Route: PO; iw 12:44 Drug: Ketorolac 30 mg Route: IM; Site: right deltoid; iw 12:44 Drug: Valium (diazepam) 5 mg Route: PO; iw Disposition Summary: 10/24/21 12:55 Discharge Ordered Location: Home lazaro Condition: Stable tanya Diagnosis - Strain of muscle and tendon of back wall of thorax tanya Followup: tanya - With: Private Physician - When: 2 - 3 days - Reason: Recheck today's complaints, Continuance of care, Re-evaluation by your physician Discharge Instructions: - Discharge Summary Sheet tanya - Thoracic Strain lazaro Forms: - Medication Reconciliation Form tanya - Thank You Letter tanya - Antibiotic Education jmm - Prescription Opioid Use laazrom - Family Work Release iw - Work release form iw Prescriptions: - Ibuprofen 800 mg Oral Tablet - take 1 tablet by ORAL route every 12 hours As needed take with food; 20 tablet; tanya Refills: 0, Product Selection Permitted - orphenadrine citrate 100 mg Oral Tablet Sustained Release - take 1 tablet by ORAL route 2 times per day As needed; 20 tablet; Refills: 0, tanya Product Selection Permitted Signatures: Waldo Rodriguez PA PA jmm Williams, Irene, RN MICHAEL iw Phylicia Sheets RN RN jh5
--- NOTE | 2021-10-24 12:56 | ER ---
Nurse's Notes [facility] Name: Linda Urena Age: 46 yrs Sex: Female : 1975 Arrival Date: 10/24/2021 Time: 10:19 Bed 11 Private MD: Diagnosis: Strain of muscle and tendon of back wall of thorax Presentation: 10/24 10:33 Chief complaint: Patient states: left upper shoulder pain for couple days and it's not jh stopping. Pt thinks she might of lifted or pulled something wrong and injured herself; employee of [employer]. When she moves left arm up the pain radiates down the arm; ibuprofen isnt helping so she came here. Coronavirus screen: Vaccine status: Patient reports receiving the 2nd dose of the covid vaccine. Client denies travel out of the [place] in the last 14 days. At this time, the client does not indicate any symptoms associated with coronavirus-19. Ebola Screen: Patient negative for fever greater than or equal to 101.5 degrees Fahrenheit, and additional compatible Ebola Virus Disease symptoms Patient denies exposure to infectious person. Patient denies travel to an Ebola-affected area in the 21 days before illness onset. Initial Sepsis Screen: Does the patient meet any 2 criteria? No. Patient's initial sepsis screen is negative. Does the patient have a suspected source of infection? No. Patient's initial sepsis screen is negative. Risk Assessment: Do you want to hurt yourself or someone else? Patient reports no desire to harm self or others. Onset of symptoms was October 21, 2021. 10:33 Method Of Arrival: Ambulatory [facility] 10:33 Acuity: MARYSOL 4 5 Triage Assessment: 10:37 General: Appears in no apparent distress. uncomfortable, slender, well groomed, well jh5 developed, well nourished, Behavior is calm, cooperative, appropriate for age. Pain: Complains of pain in left shoulder. DATA ENTRY: 10:37 LMP N/A - Post-menopause [facility] Historical: - Allergies: 10:37 No Known Allergies; 5 - Home Meds: 10:37 None [Active]; jh5 - PMHx: 10:37 None; [facility] - Immunization history:: Adult Immunizations up to date. - Social history:: Smoking status: Patient denies any tobacco usage or history of. Screenin:09 Abuse screen: Denies threats or abuse. Denies injuries from another. Nutritional [facility] screening: No deficits noted. Tuberculosis screening: No symptoms or risk factors identified. Fall Risk None identified. Assessment: 11:09 Reassessment: see triage. [facility] 12:47 General: Appears in no apparent distress. Behavior is calm, cooperative. Pain: iw Complains of pain in anterior aspect of left shoulder and posterior aspect of left shoulder. Neuro: Level of Consciousness is awake, alert, obeys commands, Oriented to person, place, time, situation, Moves all extremities. Cardiovascular: Patient's skin is warm and dry. Respiratory: Respiratory effort is even, unlabored. GI: No signs and/or symptoms were reported involving the gastrointestinal system. Derm: Skin is intact, is healthy with good turgor. Vital Signs: 10:33 BP 107 / 87; Pulse 94; Resp 16; Temp 97.0; Pulse Ox 99% ; Weight 72.57 kg; Height 5 ft. jh5 9 in. (175.26 cm); Pain 10/10; 10:33 Body Mass Index 23.63 (72.57 kg, 175.26 cm) [facility] ED Course: 10:19 Patient arrived in ED. as 10:37 Triage completed. [facility] 10:37 Arm band placed on left wrist. [facility] 11:09 Patient has correct armband on for positive identification. Bed in low position. Call [facility] light in reach. Side rails up X 1. Adult w/ patient. 11:09 No provider procedures requiring assistance completed. [facility] 11:14 Waldo Rodriguez PA is PHCP. [facility] 11:14 Sony Pickens MD is Attending Physician. [facility] 11:57 Nelly Arevalo, RN is Primary Nurse. iw 12:48 Patient did not have IV access during this emergency room visit. iw Administered Medications: 12:43 Drug: HYDROcodone-acetaminophen 5 mg-325 mg 1 tabs Route: PO; iw 12:44 Drug: Ketorolac 30 mg Route: IM; Site: right deltoid; iw 12:44 Drug: Valium (diazepam) 5 mg Route: PO; iw Outcome: 12:55 Discharge ordered by . [facility] 13:19 Patient left the ED. iw Signatures: MickaWlado troy PA PA jmm Martinez, Amelia as Williams, Irene, RN RN iw Phylicia Sheets RN RN jh5
[2021-10-24 13:24] VITALS: BP 107/87; TEMP 97; O2SAT 99
== END 2021-10-24 13:19 | disposition home or self-care (01) ==
LOC: ER 10:16
DX: S29.012A Strain of muscle and tendon of back wall of thorax, initial encounter (principal); X58.XXXA Exposure to other specified factors, initial encounter
CPT/HCPCS: 96372; 99282

== ENCOUNTER 2022-05-15 10:45 | Emergency (ER) | payer SELFPAY ==
--- OUTSIDE RECORDS SUMMARY | 2022-05-15 10:52 | XMS REPORT | Continuity of Care Document ---
:1975 Author Organization [facility] t Address [address] [place] [address] Care Team Providers Name Role Phone Pcp, Patient Does Not Have A Primary Care Physician [id number] LEE ANN MILLS Attending Clinician Unavailable Lee Ann Hernandez Attending Clinician UNKNOWN, ATTENDING Attending Clinician Unavailable Katheryn Shukla Attending Clinician Rafy Campbell Attending Clinician Doctor Unassigned, [place] Attending Clinician Unavailable Shelby Ba Attending Clinician Provider, [facility] Attending Clinician Unavailable Ora Mckeon Attending Clinician ORA ARAIZA Attending Clinician Unavailable Jeanie Hallman MD Attending Clinician Sudhakar Westbrook MD Attending Clinician JEANIE HALLMAN Attending Clinician Unavailable Mateo Arora Attending Clinician Sudhakar Westbrook MD Admitting Clinician Problems Condition Condition Condition Status Onset Resolution Last Treating Co mments Source Name Details Category Date Date Treatment Clinician Date Intentiona Intentiona Disease Active 2019-0 U nivers l l 5 [place] Univers dramine ty to comments 04-01 out ity of Hcl adverse 00:00: [place] reaction 00 Medical s Branch DIPHENHY DRUG Active Dizziness Unive rs DRAMINE INGREDI 04-01 ity of HCL 00:00: [place] 00 Medical Branch Social History Social Habit Start Date Stop Date Quantity Comments Source Exposure to Yes [facility] SARS-CoV-2 (event) Medica l Branch History [facility] 2020-02-12 2020-02-12 4 [facility] 00:00:00 00:00:00 Medical Branch History [facility] Food 2020-02-12 2020-02-12 2 Univers ity [facility] Worry 00:00:00 00:00:00 Medical Branch History [facility] Food 2020-02-12 2020-02-12 1 [facility] ity [facility] Scarcity 00:00:00 00:00:00 Medical Branch History [facility] 2020-02-12 2020-02-12 2 [facility] Med 00:00:00 00:00:00 Medical Bra nch History [facility] 2020-02-12 2020-02-12 2 [facility] Non-Med 00:00:00 00:00:00 Medical Branch Tobacco use and 2020-02-11 2020-02-11 Never used [facility] exposure 00:00:00 00:00:00 Medical Branch Education 2020-02-11 2020-02-11 13 [facility] 00:00:00 00:00:00 Medical Branch Sex [birth year] [facility] 00:00:00 00:00:00 Medical Branch Smoking Status Start Date Stop Date Source Never smoker [facility] xa Medical Branch Unknown if ever smoked [facility] Medical Branch Medications Ordered Filled Start Stop Current Ordering Indication Dosage Frequency Signature Comments Components Source Medication Medication Date Date Medication? Clinician (SIG) Name Name ibuprofen No 800mg 800 mg, Uni vers (IBU) 11-05 Oral, ity of tablet 800 19:45: 18:56 ONCE, 1 [place] mg 00 :00 dose, On Medical Tue Branch 11/05/21 at 1345, ALFREDITO ondansetron No 8mg 8 mg, Univ ers (ZOFRAN-ODT 11-05 Oral, ity of ) 19:45: 18:56 ONCE, 1 [place] disintegrat 00 :00 dose, On Medi indy ing tablet Tue Branch 8 mg 11/05/21 at 1345, ALFREDITO proMETHazin Yes [id number] 25mg Take 1 Univers e 25 mg 1-25 tablet by ity of tablet 00:00: mouth [place] 00 every 6 Medical (six) Branch hours as needed for Nausea and Vomiting (N/V) or N/V unresponsi ve to Ondansetro n. traMADoL No 50mg 50 mg, Univer s (ULTRAM) 2-05 02-04 Oral, ity of tablet 50 00:00: 23:02 ONCE, 1 [place] mg 00 :00 dose, [facility] Medical 11/15/20 at Branch 1800, Routine ondansetron No 4mg 4 mg, Slow Univers (ZOFRAN 11-15 02-04 IV Push, ity of (PF)) 21:15: 20:15 ONCE, 1 [place] injection 4 00 :00 dose, [facility] Med ical mg 11/15/20 at Branch 1515, ALFREDITO traMADoL 50 Yes [id number] 50mg Take 1 Univ ers mg tablet 2-04 tablet by ity o f 00:00: mouth [place] 00 every 6 Medical (six) Branch hours as needed for Pain (scale 7-10) for up to 14 doses. Indication s: acute pain ondansetron Yes [id number] 4mg Take 1 Univers (ZOFRAN 2-04 tablet by ity of ODT) 4 mg 00:00: mouth [place] disintegrat 00 every 8 Medic al ing tablet (eight) Branch hours as needed for Nausea and Vomiting (N/V). esomeprazol Yes [id number] 20mg Take 20 mg Univers e (NEXIUM) 2-04 by mouth ity o f 20 mg 00:00: daily [place] capsule 00 before a Medical meal. Branch traMADoL 50 Yes [id number] 50mg Take 1 Univ ers mg tablet 2-04 tablet by ity o f 00:00: mouth [place] 00 every 6 Medical (six) Branch hours as needed for Pain (scale 7-10) for up to 14 doses. Indication s: acute pain ondansetron Yes [id number] 4mg Take 1 Univers (ZOFRAN 2-04 tablet by ity of ODT) 4 mg 00:00: mouth [place] disintegrat 00 every 8 Medic al ing tablet (eight) Branch hours as needed for Nausea and Vomiting (N/V). esomeprazol Yes [id number] 20mg Take 20 mg Univers e (NEXIUM) [...] No 30mg 30 mg, Unive rs (TORADOL) 2-30 12-30 Intramuscu ity of injection 22:45: 21:39 lar, ONCE, [place] 30 mg 00 :00 1 dose, Medical Wed Branch 10/10/20 at 1645, ALFREDITO
Fa culty member approving Restricted medication : SAGAR MOORE methocarbam 2019-10 Yes [id number] 750mg Take 1 Univers oL 2-30 tablet by ity of (ROBAXIN-75 00:00: mouth 4 Good as 0) 750 mg 00 (four) Medical tablet times Branch daily as needed for Pain (scale 7-10). ibuprofen 2019-10 Yes [id number] 800mg Take 1 Univers 800 mg 2-30 tablet by ity of tablet 00:00: mouth [place] 00 every 8 Medical (eight) Branch hours as needed for Pain (scale 4-6). methocarbam 2019-10 Yes [id number] 750mg Take 1 Univers oL 2-30 tablet by ity of (ROBAXIN-75 00:00: mouth 4 Good as 0) 750 mg 00 (four) Medical tablet times Branch daily as needed for Pain (scale 7-10). ibuprofen 2019-10 Yes [id number] 800mg Take 1 Univers 800 mg 2-30 tablet by ity of tablet 00:00: mouth [place] 00 every 8 Medical (eight) Branch hours as needed for Pain (scale 4-6). methocarbam 2019-10 Yes [id number] 750mg Take 1 Univers oL 2-30 tablet by ity of (ROBAXIN-75 00:00: mouth 4 Good as 0) 750 mg 00 (four) Medical tablet times Branch daily as needed for Pain (scale 7-10). ibuprofen 2019-10 Yes [id number] 800mg Take 1 Univers 800 mg 2-30 tablet by ity of tablet 00:00: mouth [place] 00 every 8 Medical (eight) Branch hours as needed for Pain (scale 4-6). metoprolol 2020- No [id number] 50mg Take 1 Univers tartrate 50 5-04 06-04 tablet by it y of mg tablet 00:00: 04:59 mouth 2 [place] 00 :00 (two) Medical times Branch daily for 30 days. metoprolol 2020- No [id number] 50mg Take 1 Univers tartrate 50 -04 06-04 tablet by it y of mg tablet 00:00: 04:59 mouth 2 [place] 00 :00 (two) Medical times Branch daily for 30 days. cefdinir 2020- No 300mg 300 mg, Univ ers (OMNICEF) 02-11 05-06 Oral, ity of capsule 300 15:00: 12:59 Q12H, 6 [place] mg 00 :00 doses, Medical First dose Branch on 02/12/20 at 1000, Last dose on Thu02/14/20 at 2000, ALFREDITO
Reason for Anti-Infec tive: Documented Infection< br>Documen jeovanny Infection Site: Urine<b r>Duration of Therapy: Other (see Comments) amLODIPine 2019-0 Yes 5mg 5 mg, Univer s (NORVASC) - Oral, ity of tablet 5 mg 14:00: DAILY, [place] 00 First dose Medical on Sun Branch 02/12/20 at 0900, Until Discontinu ed, Routine cefTRIAXone 2020-0 2020- No 1000mg 1,000 mg, Univers (ROCEPHIN) 02-11 05-03 IV ity of 1,000 mg in 14:00: 14:47 Piggyback, [place] NaCl 0.9% 00 :17 DAILY, Medical (NS) 50 mL First dose Bra nch MINI-BAG on [place] 02/12/20 at 0900, Until Discontinu ed, 50 mL
Reas on for Anti-Infec tive: Documented Infection< br>Documen jeovanny Infection Site: Urine
D uration of Therapy: Other (see Comments) LORazepam 2019-0 Yes 1mg 1 mg, Slow Un quintin (ATIVAN) 5-03 IV Push, ity of injection 1 06:10: Q4HPRN, Good as mg 26 Starting Medical [place] 02/12/20 Branch at 0110, Until Discontinu ed, STAT, Agitation D5W 0.45% 2019-0 Yes IV Univers NaCl - Infusion, ity of (1/2NS) 1 L 02:30: [...] swallow or has mental changes. dextrose 50 2020-0 Yes 25mL 25 mL, Univ ers % in water 5-03 Slow IV ity of (D50W) 01:09: Push, PRN, [place] injection 29 Starting Medica l 25 mL 02/11/20 Branch at 2008, Until Discontinu ed, ALFREDITO, Blood Glucose < or = 70 mg/dL and patient is unable to swallow or has mental status changes. NaCl 0.9% 2019-0 2020- No 1000mL at 999 Uni vers (NS) bolus 5- 05-03 mL/hr, ity of infusion 00:15: 00:40 1,000 mL, Good as 1,000 mL 00 :00 IV Medical Infusion, Branch ONCE, 1 dose, 02/11/20 at 1915, STAT LORazepam 2019-0 2020- No 1mg 1 mg, Slow U nivers (ATIVAN) 5 05-02 IV Push, ity of injection 1 00:15: 23:15 ONCE, 1 [place] mg 00 :00 dose, [facility] Medical 02/11/20 at Branch 1914, STAT LORazepam 2020-0 Yes [id number] .5mg Take 1 Un quintin 0.5 mg 5-03 tablet by ity of tablet 00:00: mouth (two) Medical times Branch daily as needed for Anxiety. LORazepam 2020-0 Yes [id number] .5mg Take 1 Un quintin 0.5 mg 5-03 tablet by ity of tablet 00:00: mouth (two) Medical times Branch daily as needed for Anxiety. LORazepam 2020-0 Yes [id number] .5mg Take 1 Un quintin 0.5 mg 5-03 tablet by ity of tablet 00:00: mouth (two) Medical times Branch daily as needed for Anxiety. LORazepam 2020-0 Yes [id number] .5mg Take 1 Un quintin 0.5 mg 5-03 tablet by ity of tablet 00:00: mouth (two) Medical times Branch daily as needed for Anxiety. LORazepam 2020-0 Yes [id number] .5mg Take 1 Un quintin 0.5 mg 5-03 tablet by ity of tablet 00:00: mouth (two) Medical times Branch daily as needed for Anxiety. LORazepam 2020-0 Yes [id number] .5mg Take 1 Univers 0.5 mg 5-03 tablet by ity of tablet 00:00: mouth (two) Medical times Branch daily as needed for Anxiety. LORazepam 2020-0 Yes [id number] .5mg Take 1 Un quintin 0.5 mg 02-11 tablet by ity of tablet 00:00: mouth 2 [place] 00 (two) Medical times Branch daily as needed for Anxiety. cefdinir 2019-2019- No [id number] 300mg Take 1 U nivers 300 mg 02-11- capsule by ity of capsule 00:00: 04:59 mouth [place] 00 :00 every 12 Medical (twelve) Branch hours for 3 days. cefdinir 2019-2019- No [id number] 300mg Take 1 U nivers 300 mg 02-11- capsule by ity of capsule 00:00: 04:59 mouth [place] 00 :00 every 12 Medical (twelve) Branch hours for 3 days. cefdinir 2019-2019- No [id number] 300mg Take 1 U nivers 300 mg 02-11 capsule by ity of capsule 00:00: 04:59 mouth [place] 00 :00 every 12 Medical (twelve) Branch hours for 3 days. KCL 2019- No 10meq 10 mEq, IV Unive rs (POTASSIUM 02-10 Piggyback, it y of CHLORIDE) 23:30: 22:46 ONCE, 1 [place] 10 mEq in 00 :00 dose, Sat Medic al NaCl 0.9% 02/11/20 at [facility] h (NS) 100 mL 1830, 100 piggyback mL cefTRIAXone 2019- No 1000mg 1,000 mg, Univers (ROCEPHIN) 02-10 IV ity of 1,000 mg in 23:30: 23:16 Piggyback, [place] NaCl 0.9% 00 :00 ONCE, 1 Medical (NS) 50 mL dose, Sat [facility] ch MINI-BAG 02/11/20 at 1830, 50 mL
Reas on for Anti-Infec tive: Documented Infection< br>Documen jeovanny Infection Site: Urine
D uration of Therapy: Other (see Comments) LORazepam 2019- No 1mg 1 mg, Slow U nivers (ATIVAN) 02-10 IV Push, ity of injection 1 22:45: 21:50 ONCE, 1 [place] mg 00 :00 dose, Sat Medical 02/11/20 at Branch 1745, STAT ondansetron 2019- No 4mg 4 mg, Slow Univers (ZOFRAN 02-10 IV Push, ity of (PF)) 22:45: 21:50 ONCE, 1 [place] injection 4 00 :00 dose, Sat Med ical mg 02/11/20 at Branch 1745, ALFREDITO activated 2019-0 2019- No 50g 50 g, Univer s charcoal-so 02-10 Oral, ity of rbitol 22:45: 21:40 ONCE, 1 [place] (ACTIDOSE/S 00 :00 dose, Sat Med ical ORBITAL) 25 02/11/20 at [facility] gram/120 mL 1745, ALFREDITO suspension 50 g amLODIPine Yes [id number] 5mg Take 1 U nivers 5 mg tablet 1-28 tablet by ity of 00:00: mouth [place] 00 daily. Medical Branch amLODIPine Yes [id number] 5mg Take 1 U nivers 5 mg tablet 1-28 tablet by ity of 00:00: mouth [place] 00 daily. Medical Branch amLODIPine 0 Yes [id number] 5mg Take 1 U nivers 5 mg tablet 1-28 tablet by ity of 00:00: mouth [place] 00 daily. Medical Branch amLODIPine 0 Yes [id number] 5mg Take 1 U nivers 5 mg tablet 1-28 tablet by ity of 00:00: mouth [place] 00 daily. Medical Branch amLODIPine 2019-0 Yes [id number] 5mg Take 1 U nivers 5 mg tablet 1-28 tablet by ity of 00:00: mouth [place] 00 daily. Medical Branch amLODIPine 0 Yes [id number] 5mg Take 1 U nivers 5 mg tablet 1-28 tablet by ity of 00:00: mouth [place] 00 daily. Medical Branch amLODIPine 0 Yes [id number] 5mg Take 1 U nivers 5 mg tablet 1-28 tablet by ity of 00:00: mouth [place] 00 daily. Medical Branch amLODIPine 0 Yes [id number] 5mg Take 1 U nivers 5 mg tablet 1-28 tablet by ity of 00:00: mouth [place] 00 daily. Medical Branch ibuprofen Yes [id number] 800mg Take 1 U nivers 800 mg 2-19 tablet by ity of tablet 00:00: mouth [place] 00 every 6 Medical (six) Branch hours as needed for Pain (scale 4-6). ibuprofen 2019-0 Yes [id number] 800mg Take 1 U nivers 800 mg 2-19 tablet by ity of tablet 00:00: mouth [place] 00 every 6 Medical (six) Branch hours as needed for Pain (scale 4-6). ibuprofen 2019-0 Yes [id number] 800mg Take 1 U nivers 800 mg 2-19 tablet by ity of tablet 00:00: mouth [place] 00 every 6 Medical (six) Branch hours as needed for Pain (scale 4-6). ibuprofen 2018-0 Yes [id number] 800mg Take 1 U nivers 800 mg 2-19 tablet by ity of tablet 00:00: mouth [place] 00 every 6 Medical (six) Branch hours as needed for Pain (scale 4-6). ibuprofen 2018-0 Yes [id number] 800mg Take 1 U nivers 800 mg 2-19 tablet by ity of tablet 00:00: mouth [place] 00 every 6 Medical (six) Branch hours as needed for Pain (scale 4-6). ibuprofen 2018- Yes [id number] 800mg Take 1 U nivers 800 mg 2-19 tablet by ity of tablet 00:00: mouth [place] 00 every 6 Medical (six) Branch hours as needed for Pain (scale 4-6). ibuprofen 0 Yes [id number] 800mg Take 1 U nivers 800 mg 2-19 tablet by ity of tablet 00:00: mouth [place] 00 every 6 Medical (six) Branch hours as needed for Pain (scale 4-6). ibuprofen 0 Yes [id number] 800mg Take 1 U nivers 800 mg 2-19 tablet by ity of tablet 00:00: mouth [place] 00 every 6 Medical (six) Branch hours as needed for Pain (scale 4-6). Vital Signs Vital Name Observation Time Observation Value Comments Source Systolic blood 2021-11-05 18:33:00 150 [facility] 2021-11-05 18:33:00 122 mm[Hg] [facility] Heart rate 2021-11-05 18:33:00 96 /min [facility] Body temperature 2021-11-05 18:33:00 35.83 Melly [facility] Respiratory rate 2021-11-05 18:33:00 18 /min [facility] Body weight 2021-11-05 18:33:00 68.947 kg [facility] ty [facility] [place] [facility] BMI 2021-11-05 18:33:00 22.45 kg/m2 [facility] ty [facility] [place] [facility] Oxygen saturation in 2021-11-05 18:33:00 100 /min University of Arterial blood by [place] Fillm indy Pulse oximetry Branch Systolic blood 2020-11-15 22:45:00 178 mm[Hg] Univer sity of pressure [place] [facility] Diastolic blood 2020-11-15 22:45:00 105 mm[Hg] Unive rsity of pressure [place] [facility] Heart rate 2020-11-15 22:45:00 85 /min [facility]i ty [facility] [place] [facility] Respiratory rate 2020-11-15 22:45:00 18 /min Univ ersity of [place] [facility] Oxygen saturation in 2020-11-15 22:45:00 97 /min University of Arterial blood by [place] Fillm indy Pulse oximetry Branch Body temperature 2020-11-15 19:41:00 37.28 Melly Univ ers[facility] [place] [facility] Body weight 2020-11-15 19:41:00 68.947 kg Universi ty [facility] [place] [facility] BMI 2020-11-15 19:41:00 22.45 kg/m2 [facility] [place] [facility] Systolic blood 2020-10-10 21:47:00 170 mm[Hg] Univer sity of pressure [place] [facility] Diastolic blood 2020-10-10 21:47:00 100 mm[Hg] Unive rsity of pressure [place] [facility] Heart rate 2020-10-10 20:43:00 89 /min [facility]i [facility] [place] [facility] Body temperature 2020-10-10 20:43:00 37.06 Melly [facility] [place] [facility] Respiratory rate 2020-10-10 20:43:00 20 /min Univ ers[facility] [place] [facility] Body height 2020-10-10 20:43:00 175.3 cm [facility] [place] [facility] Body weight 2020-10-10 20:43:00 68.947 kg [facility] [place] [facility] BMI 2020-10-10 20:43:00 22.45 kg/m2 [facility] [place] [facility] Oxygen saturation in 2020-10-10 20:43:00 98 /min University of Arterial blood by [place] Fillm indy Pulse oximetry Branch Systolic blood 2020-02-13 21:10:00 142 mm[Hg] Univer sity of pressure [place] [facility] Diastolic blood 2020-02-13 21:10:00 94 mm[Hg] Unive rsity of pressure [place] [facility] Heart rate 2020-02-13 21:05:00 100 /min Universi ty of [facility] Body temperature 2020-02-13 21:02:00 36.06 Melly Univ ers[facility] Respiratory rate 2020-02-13 21:02:00 17 /min Univ ers[facility] [place] [facility] Body height 2020-02-13 21:02:00 175.3 cm [facility] [place] [facility] Body weight 2020-02-13 21:02:00 67.132 kg Universi ty of [facility] BMI 2020-02-13 21:02:00 21.86 kg/m2 Universi ty of [facility] Oxygen saturation in 2020-02-13 21:02:00 96 /min University of Arterial blood by [facility] Pulse oximetry Branch Systolic blood 2020-02-12 17:00:00 142 mm[Hg] Univer sity of pressure [place] [facility] Diastolic blood 2020-02-12 17:00:00 109 mm[Hg] Unive rsity of pressure [place] [facility] Heart rate 2020-02-12 17:00:00 112 /min Universi ty of [facility] Body temperature 2020-02-12 17:00:00 36.28 Melly [facility] [place] [facility] Respiratory rate 2020-02-12 17:00:00 21 /min Univ ersity of [facility] Oxygen saturation in 2020-02-12 17:00:00 95 /min University of Arterial blood by [facility] Pulse oximetry Branch Body height 2020-02-12 01:14:00 167.6 cm [facility] [place] [facility] [place] Body weight 2020-02-12 01:14:00 67.495 kg [facility] [place] [facility] BMI 2020-02-12 01:14:00 24.02 kg/m2 [facility] Systolic blood 2019-11-09 04:39:00 154 mm[Hg] Univer sity of pressure [place] [facility] Diastolic blood 2019-11-09 04:39:00 111 mm[Hg] Unive rsity of pressure [place] [facility] Heart rate 2019-11-09 04:39:00 76 /min [facility] Respiratory rate 2019-11-09 04:39:00 18 /min [facility] Oxygen saturation in 2019-11-09 04:39:00 98 /min [facility] Arterial blood by [facility] Pulse oximetry [place] Body temperature 2019-11-09 03:30:34 37.11 Melly [facility] Body height 2019-11-09 02:29:00 175.3 cm [facility] Body weight 2019-11-09 02:29:00 72.576 kg [facility] BMI 2019-11-09 02:29:00 23.63 kg/m2 [facility] Procedures Procedure Date / Time Performing Clinician Source Performed URINALYSIS 2021-11-05 19:01:00 Lee Ann Mills [facility] NOTICE OF PRIVACY 2021-11-05 18:26:00 Doctor Unassigned, No [facility] CONSENT/REFUSAL FOR 2021-11-05 18:25:46 Doctor Unassigned, No [facility] [place] DIAGNOSIS AND TREATMENT Name [facility] POCT TEST 2020-11-15 21:21:00 Katheryn Ames [facility] URINALYSIS 2020-11-15 21:19:00 Katheryn Ames [facility] LIPASE 2020-11-15 20:13:00 Hui Katheryn [facility] COMP. METABOLIC PANEL 2020-11-15 20:13:00 AmesKatheryn bangura [facility] ([id number]) [facility] CBC WITH DIFF 2020-11-15 20:13:00 AmesKatheryn bangura [facility] CONSENT/REFUSAL FOR 2020-11-15 19:22:43 Doctor Unassigned, No [facility] [place] DIAGNOSIS AND TREATMENT Name [facility] NOTICE OF PRIVACY 2020-10-10 20:26:59 Doctor Unassigned, No [facility]SENT/REFUSAL FOR 2020-10-10 20:26:45 Doctor Unassigned, No Un iversity [facility] DIAGNOSIS AND TREATMENT Name [facility] COMP. METABOLIC PANEL 2020-02-12 09:07:00 Abdullah, [facility] ([id number]) Medical Branch CBC WITH DIFFERENTIAL 2020-02-12 09:07:00 Merlin Stewart [facility] LACTIC ACID WHOLE BLOOD 2020-02-12 01:51:00 Jeanie Hallman [facility] BLOOD CULTURE SCREEN 2020-02-11 22:33:00 Jeanie Hallman [facility] LACTIC ACID WHOLE BLOOD 2020-02-11 22:03:00 Jeanie Hallman [facility] CRITICAL CARE 2020-02-11 21:55:26 Jeanie Hallman [facility] URINALYSIS 2020-02-11 21:53:00 Lexx [facility] ADC / LCC - DRUG SCREEN 2020-02-11 21:53:00 Jeanie Hallman [facility] TRIAGE [facility] CORONAVIRUS COVID-19 2020-02-11 21:53:00 Jeanie Hallman [facility] TESTING [facility] ACUTE CARE VENOUS BLOOD 2020-02-11 21:46:00 Jeanie Hallman [facility] GAS [facility] LIPASE 2020-02-11 21:45:00 Jeanie Hallman [facility] MAGNESIUM 2020-02-11 21:45:00 [facility] TEST, SERUM 2020-02-11 21:45:00 Jeanie Hallman [facility] TROPONIN I 2020-02-11 21:45:00 Jeanie Hallman [facility] FREE T4 2020-02-11 21:45:00 Jeanie Hallman [facility] THYROID STIMULATING 2020-02-11 21:45:00 Jeanie Hallman [facility] HORMONE [facility] HEPATIC FUNCTION PANEL 2020-02-11 21:45:00 Jeanie Hallman [facility] ([id number]) (ALB,T.PRO,BILI [facility] T,BU/BC,ALT,AST,ALK PHOS) BASIC METABOLIC PANEL 2020-02-11 21:45:00 Jeanie Hallman [facility] (NA, K, CL, CO2, Medical Branch GLUCOSE, BUN, CREATININE, CA) SALICYLATE 2020-02-11 21:45:00 Jeanie Hallman [facility] CBC WITH DIFFERENTIAL 2020-02-11 21:45:00 Jeanie Hallman [facility] PROTHROMBIN TIME / INR 2020-02-11 21:45:00 Jeanie Hallman [facility] ACTIVATED PARTIAL 2020-02-11 21:45:00 Jeanie aHllman [facility] THRMPLAS [facility] N-TERMINAL PRO-BNP 2020-02-11 21:45:00 Jeanie Hallman [facility] y [facility] FREE T3 2020-02-11 21:45:00 Lexx Jeanie [facility] PHOSPHORUS 2020-02-11 21:45:[facility] CREATINE KINASE 2020-02-11 21:45:00 Lexx [facility] EKG-12 LEAD 2020-02-11 21:37:16 Lexx Jeanie [facility] TEST, SERUM 2019-11-09 04:13:00 Mateo Humphreys [facility] BASIC METABOLIC PANEL 2019-11-09 04:13:00 Mateo Humphreys [facility] (NA, K, CL, CO2, [facility] GLUCOSE, BUN, CREATININE, CA) CBC WITH DIFFERENTIAL 2019-11-09 04:13:00 Mateo Humphreys [facility] NOTICE OF PRIVACY 2019-11-09 02:07:51 Doctor Unassigned, No Univ [facility] PRACTICES Name [facility] CONSENT/REFUSAL FOR 2019-11-09 02:07:37 [facility] Name [facility] Encounters Start End Encounter Admission Attending Care Care Encounter Source Date/Time Date/Time Type Type Clinicians Facility Department ID 2021-08-10 Emergency [facility] [id number] Univers 21:52:29 [facility] 2021-08-10 Emergency [facility] [id number] Univers 13:54:08 [facility] 2021-11-05 2021-11-05 Emergency [facility] E[facility] [id number] Univers 12:35:00 15:04:00 LEE ANN [facility] 2021-11-05 2021-11-05 [place] [facility] [id number] Univers 12:35:00 15:04:00 Lee Ann MERA [id number] i ty of [place] [id number] [facility] [id number] [place] [id number] [place] 2021-10-30 2021-10-30 Outpatient R UNKNOWN, [facility] [id number] Univers 10:15:00 10:15:00 ATTENDING [id number] y [facility] 2021-10-30 2021-10-30 Outpatient R UNKNOWN, [facility] [id number] Univers 10:15:00 10:15:00 [facility]15 2020-11-15 [facility] [id number] Univers 13:42:00 17:07:00 Katheryn Mera 350.1.13.10 i ty of [place] 4.2.7.2.686 [facility] [id number] [address] 2020-10-10 2020-10-10 Emergency Veronica [facility] 1.2.840.114 [id number] Univers 14:45:00 15:52:00 Rafyakash Mera 350.1.13.10 i ty of [place] 4.2.7.2.686 [facility] [id number] [address] 2020-10-10 2020-10-10 Orders Doctor NOELLE 1.2.840.114 [id number] Univers 00:00:00 00:00:00 Only Unassigned, ROB 350.1.13.10 ity of [place] [facility] 4.2.7.2.686 Good as [phone] [facility] [address] 2020-02-14 2020-02-14 Transition Ranjith Ba 1.2.840.114 [id number] Univers 00:00:00 00:00:00 of Care Shelby Kam 350.1.13.10 ity of [place] 4.2.7.2.686 [place] [phone] [facility] [address] 2020-02-13 2020-02-13 Urgent Provider, [facility] Urgent Care [facility] 1.2.840.114 [id number] Univers 15:50:12 16:52:33 Care Ora Araiza [facility] 350.1.13.10 ity of [place] 4.2.7.2.686 Good as Professio [phone] Dc dical nal [address] [place] [address] 2020-02-13 2020-02-13 Outpatient R MAXI [facility] [id number] Univers 16:00:00 16:00:00 ORA itakash [facility] 2020-02-11 2020-02-12 Hospital Jeanie Hallman [facility] 1.2.840.1 14 [id number] Univers 16:56:30 13:25:00 Encounter Sudhakar [place] 350.1.13.10 ity [facility] 4.2.7.2.686 [facility] [id number] [address] 2020-02-11 2020-02-11 Emergency X LEXX [facility] ERT [id number] Univers 16:33:00 16:33:00 JEANIE [facility] 2019-11-08 2019-11-08 Emergency Mateo Humphreys [facility] 1.2.840.114 [id number] Univers 21:24:57 23:17:00 T Donnie 350.1.13.10 i ty of [place] 4.2.7.2.686 [facility] [id number] [address] Results Test Description Test Time Test Comments Results Result Comments Source URINALYSIS 2020-11-15 22:17:00 Test Item Value Reference Range Interpretation Comme nts APPEARANCE (test code = Hazy Clear A 6167395078) COLOR (test code = 4554318944) Yellow Yellow PH (test code = 7295724992) 4.8-8.0 SP GRAVITY (test code = 1.003-1.030 8749371973) GLU U QUAL (test code = Normal Normal 1705355392) BLOOD (test code = 0396023991) Negative Negative KETONES (test code = 3782587334) 20 mg/dL Negative A PROTEIN (test code = 2887-8) Negative Negative UROBILIN (test code = Normal Normal 2986586450) BILIRUBIN (test code = Negative Negative 3509079795) NITRITE (test code = 9670536346) Negative Negative LEUK HELADIO (test code = Negative Negative 2328728824) RBC/HPF (test code = 7878837532) See_Comment [Automated message] The system which ge nerated this result transmit jeovanny reference range: 0 - 3 HP F. The reference range was not used to interpret th is result as normal/abnormal . WBC/HPF (test code = 0498493408) See_Comment [Automated message] The system which ge nerated this result transmit jeovanny reference range: 0 - 5 HP F. The reference range was not used to interpret th is result as normal/abnormal . BACTERIA (test code = Few Negative A 4708091678) MUCOUS (test code = 2513713232) Slight Negative LPF A SQ EPITH (test code = HPF 6507458652) Lab Interpretation (test code = Abnormal 41993-5) [facility] [id number] 21:21:00 Test Item Value Reference Range Interpretation Comments POCT PREG (test code = 1605) neg On board controls acceptable with yes C Line (test code = 3574) POCT PREG LOT # (test code = 3575) [id number] POCT PREG TEST DATE (test 06/11/2022 code = 3576) Lab Interpretation (test code = Normal 97234-8) [facility]. METABOLIC PANEL (83485)2020-11-15 20:40:00 Test Item Value Reference Range Interpretation Comments NA (test code = 137 mmol/L 135-145 6455104566) K (test code = 3.5 mmol/L 3.5-5 1180419452) CL (test code = 100 mmol/L 98-108 9448400269) CO2 TOTAL (test code = 28 mmol/L 23-31 6628107924) AGAP (test code = 2-16 4682070321) BUN (test code = 19 mg/dL 7-23 7525921347) GLUCOSE (test code = 82 mg/dL 70-110 8163698507) CREATININE (test code 0.80 mg/dL 0.5-1.04 = 3835177228) TOTAL BILI (test code 0.6 mg/dL 0.1-1.1 = 4825679061) CALCIUM (test code = 9.4 mg/dL 8.6-10.6 4552983749) T PROTEIN (test code = 7.9 g/dL 6.3-8.2 6634661148) ALBUMIN (test code = 4.5 g/dL 3.5-5 9740089156) ALK PHOS (test code = 85 U/L 34-122 3232438124) ALTv (test code = 9 U/L 5-35 1742-6) AST(SGOT) (test code = 25 U/L 13-40 0376199282) eGFR Calculation mL/min/1.73m2 (Non-) (test code = 2557429266) eGFR Calculation mL/min/1.73m2 () (test code = 5717340527) TERESA (test code = TERESA) Association of [...] or urine or abnormalities in imaging tests). [facility]2021-02-04 20:40:00 Test Item Value Reference Range Interpretation Comments LIPASE (test code = 1551067002) 77 U/L 0-220 Lab Interpretation (test code = Normal 09605-8) [facility] WITH [id number] 20:23:00 Test Item Value Reference Range Interpretation Comments WBC (test code = See_Comment [Automated message] 6690-2) The system [employer] generated this result transmitted ref erence range: 4.30 - 1 1.10 10*3/?L. The re ference range was not u sed to interpret this result as normal/abnor mal. RBC (test code = See_Comment [Automated message] 619-8) The system [employer] generated this result transmitted ref erence range: [...] RDW-SD (test code 39.8 fL 39-49.9 = 68066-9) RDW-CV (test code 12.4 % 12-15.5 = 788-0) PLT (test code = See_Comment [Automated message] 777-3) The system [employer] generated this result transmitted ref erence range: 166 - 35 8 10*3/?L. The re ference range was not u sed to interpret this result as normal/abnor mal. MPV (test code = 11.1 fL 9.5-12.9 67857-3) NRBC/100 WBC (test See_Comment [Automat ed message] code = 7011579881) The syste m which generated this result transmitted ref erence range: 0.0 - 10 .0 /100 WBCs. The refer ence range was not u sed to interpret this result as normal/abnor mal. NRBC x10^3 (test <0.01 See_Comment [Automated message] code = 7970556750) The syste m which generated this result transmitted ref erence range: 10*3/?L. The reference range was not used to interpr et this result as normal/abnormal . GRAN MAT (NEUT) % 65.4 % (test code = 770-8) IMM GRAN % (test 0.30 % code = 5521380929) LYMPH % (test code 25.7 % = 736-9) MONO % (test code 6.7 % = 5905-5) EOS % (test code = 1.4 % 713-8) BASO % (test code 0.5 % = 706-2) GRAN MAT 4.78 10*3/uL 1.88-7.09 x10^3(ANC) (test code = 7015522731) IMM GRAN x10^3 <0.03 0-0.06 (test code = 2548046904) LYMPH x10^3 (test 1.88 10*3/uL 1.32-3.29 code = 731-0) MONO x10^3 (test 0.49 10*3/uL 0.33-0.92 code = 742-7) EOS x10^3 (test 0.10 10*3/uL 0.03-0.39 code = 711-2) BASO x10^3 (test 0.04 10*3/uL 0.01-0.07 code = 704-7) [facility]. METABOLIC PANEL (58058)2020-02-12 11:29:00 Test Item Value Reference Range Interpretation Comments NA (test code = 137 mmol/L 135-145 1157802041) K (test code = 3.9 mmol/L 3.5-5 7761201563) CL (test code = 104 mmol/L 98-108 2960148647) CO2 TOTAL (test code = 22 mmol/L 23-31 L 1914072113) AGAP (test code = 2-16 7927600685) BUN (test code = 6 mg/dL 7-23 L 3936986502) GLUCOSE (test code = 163 mg/dL 70-110 H 3425857266) CREATININE (test code = 0.57 mg/dL 0.5-1.04 0663589166) TOTAL BILI (test code = 0.4 mg/dL 0.1-1.2 9790239209) CALCIUM (test code = 9.3 mg/dL 8.6-10.6 6633442149) T PROTEIN (test code = 7.3 g/dL 6.3-8.2 5687866815) ALBUMIN (test code = 4.2 g/dL 3.5-5 1843099782) ALK PHOS (test code = 72 U/L 34-122 8448292141) ALTv (test code = 10 U/L 5-35 1742-6) AST(SGOT) (test code = 20 U/L 13-40 0482446270) eGFR Calculation mL/min/1.73m2 (Non-) (test code = 4863959614) eGFR Calculation mL/min/1.73m2 () (test code = 2100929743) TERESA (test code = TERESA) Association of [...] tests). Lab Interpretation Abnormal (test code = 59613-5) [facility] WITH [id number] 11:08:00 Test Item Value Reference Range Interpretation Comments WBC (test code = See_Comment [Automated 6690-2) message] The sy stem which generated this result transmitted reference range : 4.30 - 11.10 10*3/?L. The reference range was not used to interpret this result as normal/abnormal . RBC (test code = See_Comment [Automated 789-8) message] The sy stem which generated this [...] RDW-SD (test code = 41.2 fL 39-49.9 77681-4) RDW-CV (test code = 12.6 % 12-15.5 788-0) PLT (test code = See_Comment [Automated 777-3) message] The sy stem which generated this result transmitted reference range : 166 - 358 10*3/ ?L. The reference r zac was not used to interpret this result as normal/abnormal . MPV (test code = 12.0 fL 9.5-12.9 85230-2) NRBC/100 WBC (test See_Comment [Automat ed code = 4978053226) message] The system which generated this result transmitted reference range : 0.0 - 10.0 /100 WBCs. The refer ence range was not u sed to interpret th is result as normal/abnormal . NRBC x10^3 (test code <0.01 See_Comment [Auto mated = 5706663710) message] The s ystem which generated this result transmitted reference range : 10*3/?L. The reference range was not used to interpret this result as normal/abnormal . GRAN MAT (NEUT) % 78.7 % (test code = 288-8) IMM GRAN % (test code 0.30 % = 4767586359) LYMPH % (test code = 15.6 % 736-9) MONO % (test code = 5.0 % 5905-5) EOS % (test code = 0.1 % 713-8) BASO % (test code = 0.3 % 706-2) GRAN MAT x10^3(ANC) 8.05 10*3/uL 1.88-7.09 H (test code = 9415418554) IMM GRAN x10^3 (test 0.03 10*3/uL 0-0.06 code = 9055781787) LYMPH x10^3 (test code 1.60 10*3/uL 1.32-3.29 = 731-0) MONO x10^3 (test code 0.51 10*3/uL 0.33-0.92 = 742-7) EOS x10^3 (test code = <0.03 0.03-0.39 L 711-2) BASO x10^3 (test code 0.03 10*3/uL 0.01-0.07 = 704-7) Lab Interpretation Abnormal (test code = 81251-8) [facility]landLactic Acid Whole [id number] 01:55:00 Test Item Value Reference Range Interpretation Comments LACTIC ACID (test code = 2.20 mmol/L 0.5-2.2 5733164407) Lab Interpretation (test code = Normal 87891-5) [facility]landMAGNESIUM2020-05-03 01:20:00 Test Item Value Reference Range Interpretation Comments MAGNESIUM (test code = 0160160076) 1.9 mg/dL 1.7-2.4 Lab Interpretation (test code = Normal 85784-6) [facility]landPHOSPHORUS2020-05-03 01:20:00 Test Item Value Reference Range Interpretation Comments PHOSPHORUS (test code = 0244302260) 2.1 mg/dL 2.5-5 L Lab Interpretation (test code = Abnormal 62194-5) [facility]landFREE [id number] 23:16:00 Test Item Value Reference Range Interpretation Comments FREE T4 (test code = 4508695058) 1.56 ng/dL 0.78-2.2 Lab Interpretation (test code = Normal 55928-4) [facility]landACETAMINOPHEN2020-05-02 23:01:00 Test Item Value Reference Range Interpretation Comments ACETAMINOP (test code = <10.0 10-30 L 6843199885) TERESA (test code = TERESA) Toxic: Greater than 200 ug/mL @ 4 hour post ingestion or greater than 50 ug/mL @ 12 hour post ingestion Lab Interpretation (test Abnormal code = 43655-3) [facility]landSALICYLATE2020-05-02 23:01:00 Test Item Value Reference Range Interpretation Comments SALICYLATE (test code <10 mg/L = 3814826540) TERESA (test code = TERESA) Therapeutic Range: ? Analgesic and Antipyretic Use ? 20-100 mg/L ? ? Anti-Inflammatory Use ? 100-250 mg/L Toxic Range: ? Greater than 300 mg/L [facility]landTHYROID STIMULATING [id number] 22:48:00 Test Item Value Reference Range Interpretation Comments TSH (test code = See_Comment [Automated message] 7860588896) The system [employer] generated this result transmitted ref erence range: 0.45 - 4 .70 mIU/L. The refe rence range was not u sed to interpret this result as normal/abnor mal. Lab Interpretation (test Normal code = 12051-1) [facility]FREE [id number] 22:35:00 Test Item Value Reference Range Interpretation Comments FREE T3 (test code = 1847751848) 3.32 pg/mL 2.77-5.27 Lab Interpretation (test code = Normal 85143-3) [facility]landTroponin [id number] 22:30:00 Test Item Value Reference Range Interpretation Comments TROPONIN I (test <0.012 See_Comment [Automated code = 1523748729) message] The system which generated this result [...] ? Lab Interpretation Normal (test code = 01719-8) [facility]landN-TERMINAL [id number] 22:26:00 Test Item Value Reference Range Interpretation Comments NT-proBNP (test code 61 pg/mL See_Comment [Autom ated = 1839398447) message] The system which generated this result transmitted reference range : <=125. The reference range was not used to interpret this result as normal/abnormal . TERESA (test code = TERESA) Biotin has been reported to cause a negative bias, interpret results relative to patient's use of biotin. Lab Interpretation Normal (test code = 33647-3) [facility]landCORONAVIRUS COVID-19 [id number] 22:23:00 Test Item Value Reference Range Interpretation Comments SARS-CoV-2 (test code = Not Detected Not Detected 58259-2) TERESA (test code = TERESA) ID NOW COVID-19 Assay is an isothermal nucleic acid amplification test intended for the qualitative detection of nucleic acid from SARS-CoV-2 viral RNA in nasopharyngeal ([employer]) specimens. It is used under Emergency Use [...] indicated. Lab Interpretation Normal (test code = 75511-7) [facility] - DRUG SCREEN [id number] 22:20:00 Test Item Value Reference Range Interpretation Comments BENZO U (test code = Negative Negative 5597479664) JAYJAY U (test code = Negative Negative 0506231233) AMPHET (test code = Negative Negative 1556770450) THC (test code = Negative Negative 8089363561) METHADONE (test code = Negative Negative 0335925385) Meth U (test code = Negative Negative 5519456110) OPIATES (test code = Negative Negative 4334264194) Cocaine Metabolite (test Negative Negative code = 2937425984) PROPOXY (test code = Negative Negative 4035917699) Tric U (test code = Negative Negative 7267765129) PCP (test code = Negative Negative 3553886897) OXYCOD (test code = Negative Negative 0261660062) TERESA (test code = TERESA) Urine Drug [...] testing). Lab Interpretation (test Normal code = 19542-2) [facility] Metabolic Panel (NA, K, CL, CO2, GLUCOSE, BUN, CREATININE, CA)2020-02-11 22:18:00 Test Item Value Reference Range Interpretation Comments NA (test code = 143 mmol/L 135-145 6734474817) K (test code = 2.6 mmol/L 3.5-5 LL 6676905651) CL (test code = 103 mmol/L 98-108 8886691428) CO2 TOTAL (test code = 27 mmol/L 23-31 1667378025) AGAP (test code = 2-16 5166214789) BUN (test code = 17 mg/dL 7-23 2547271001) GLUCOSE (test code = 215 mg/dL 70-110 H 7231312761) CREATININE (test code = 0.87 mg/dL 0.5-1.04 6267853625) CALCIUM (test code = 10.2 mg/dL 8.6-10.6 0147564623) eGFR Calculation mL/min/1.73m2 (Non-) (test code = 7493590225) eGFR Calculation mL/min/1.73m2 () (test code = 5507548389) TERESA (test code = TERESA) Association of [...] tests). Lab Interpretation Abnormal (test code = 34140-2) [facility]landHepatic Function Panel (ALB, T.PRO, BILI T, BU/BC, ALT, AST, ALK PHOS)2020-02-11 22:18:00 Test Item Value Reference Range Interpretation Comments TOTAL BILI (test code = 6684969918) 0.5 mg/dL 0.1-1.1 BILI UNCON (test code = 0915936592) 0.6 mg/dL 0.1-1.1 BILI CONJ (test code = 3112936563) 0.0 mg/dL 0-0.3 T PROTEIN (test code = 2565745021) 8.8 g/dL 6.3-8.2 H ALBUMIN (test code = 0920560942) 5.2 g/dL 3.5-5 H ALK PHOS (test code = 9416146257) 97 U/L 34-122 ALTv (test code = 1742-6) 12 U/L 5-35 AST(SGOT) (test code = 3717426712) 26 U/L 13-40 Lab Interpretation (test code = Abnormal 50926-9) [facility]landPREGNANCY TEST, [id number] 22:18:00 Test Item Value Reference Range Interpretation Comments PREG SERUM (test code Negative = 3188434144) TERESA (test code = TERESA) Less than 10 IU/L. ?If low titer or ectopic is suspected, resubmit specimen in 48-72 hours. [facility] MainlandLipase [id number] 22:17:00 Test Item Value Reference Range Interpretation Comments LIPASE (test code = 4107341485) 69 U/L 0-220 Lab Interpretation (test code = Normal 73412-3) [facility]landCREATINE [id number] 22:17:00 Test Item Value Reference Range Interpretation Comments CK (test code = 2421081237) 75 U/L 33-194 Lab Interpretation (test code = Normal 78787-4) [facility] MainlandProthrombin Time (PT) / [id number] 22:16:00 Test Item Value Reference Range Interpretation [...] tions. Lab Interpretation (test Normal code = 43398-5) [facility] MainlandaPTT2020-05-02 22:14:00 Test Item Value Reference Range Interpretation Comments APTT Patient (test See_Comment [Automat ed code = 3173-2) message] The system which generated this result transmitted reference range : 23 - 38 Seconds . The reference range was not used to interpr et this result as normal/abnormal . TERESA (test code = TERESA) The [facility] patient population mean normal value for aPTT is 30 seconds. Lab Interpretation Normal (test code = 79657-8) [facility] MainlandUrinalysis2020-05-02 22:13:00 Test Item Value Reference Range Interpretation Comments APPEARANCE (test code = Hazy Clear A 3401028000) COLOR (test code = Yellow Yellow 2901368791) PH (test code = 4.8-8.0 1763601658) SP GRAVITY (test code = 1.003-1.030 6696633617) GLU U QUAL (test code = Normal Normal 0784109598) BLOOD (test code = Negative Negative 7296827323) KETONES (test code = 5 mg/dL Negative A 9675149902) PROTEIN (test code = 30 mg/dL Negative A 2887-8) UROBILIN (test code = 4.0 mg/dL Normal A 6253318766) BILIRUBIN (test code = Negative Negative 6223618661) NITRITE (test code = Positive Negative A 1112870921) LEUK HELADIO (test code = 75/uL Negative A 9083999267) RBC/HPF (test code = See_Comment H [Autom ated message] 1633396997) The system ic h generated this result transmit jeovanny reference range : 0 - 3 HPF. The refe rence range was not u sed to interpret th is result as normal/abnormal . WBC/HPF (test code = See_Comment H [Autom ated message] 9905638241) The system [employer] generated this result transmit jeovanny reference range : 0 - 5 HPF. The refe rence range was not u sed to interpret th is result as normal/abnormal . BACTERIA (test code = Many Negative A 1764397680) MUCOUS (test code = Moderate Negative LPF A 6068620197) SQ EPITH (test code = HPF 7615502567) HYAL CAST (test code = See_Comment H [Aut omated message] 4744730112) The system [employer] generated this result transmit jeovanny reference range : <=2 LPF. The refere nce range was not u sed to interpret th is result as normal/abnormal . Lab Interpretation (test Abnormal code = 28701-0) [facility] WITH [id number] 22:06:00 Test Item Value Reference Range Interpretation Comments WBC (test code = See_Comment [Automated message] 6690-2) The system [employer] generated this result transmitted ref erence range: 4.30 - 1 1.10 10*3/?L. The re ference range was not u sed to interpret this result as normal/abnor mal. RBC (test code = See_Comment [Automated message] 159-8) The system [employer] generated this result transmitted ref erence range: [...] RDW-SD (test code 41.5 fL 39-49.9 = 64108-5) RDW-CV (test code 12.8 % 12-15.5 = 788-0) PLT (test code = See_Comment [Automated message] 777-3) The system whic h generated this result transmitted ref erence range: 166 - 35 8 10*3/?L. The re ference range was not u sed to interpret this result as normal/abnor mal. MPV (test code = 11.4 fL 9.5-12.9 19250-3) NRBC/100 WBC (test See_Comment [Automat ed message] code = 4097678359) The syste m which generated this result transmitted ref erence range: 0.0 - 10 .0 /100 WBCs. The refer ence range was not u sed to interpret this result as normal/abnor mal. NRBC x10^3 (test <0.01 See_Comment [Automated message] code = 9298838454) The syste m which generated this result transmitted ref erence range: 10*3/?L. The reference range was not used to interpr et this result as normal/abnormal . GRAN MAT (NEUT) % 65.1 % (test code = 770-8) IMM GRAN % (test 0.30 % code = 7501020541) LYMPH % (test code 27.3 % = 736-9) MONO % (test code 6.3 % = 5905-5) EOS % (test code = 0.6 % 713-8) BASO % (test code 0.4 % = 706-2) GRAN MAT 5.88 10*3/uL 1.88-7.09 x10^3(ANC) (test code = 8295489004) IMM GRAN x10^3 0.03 10*3/uL 0-0.06 (test code = 7267157296) LYMPH x10^3 (test 2.47 10*3/uL 1.32-3.29 code = 731-0) MONO x10^3 (test 0.57 10*3/uL 0.33-0.92 code = 742-7) EOS x10^3 (test 0.05 10*3/uL 0.03-0.39 code = 711-2) BASO x10^3 (test 0.04 10*3/uL 0.01-0.07 code = 704-7) [facility] Whole [id number] 22:04:00 Test Item Value Reference Range Interpretation Comments LACTIC ACID (test code = 3.56 mmol/L 0.3-2.6 H 2399668278) Lab Interpretation (test code = Abnormal 07319-4) [facility]landAC[facility]ARE VENOUS BLOOD [id number] 22:00:00 Test Item Value Reference Range Interpretation Comments PH (test code = 7.32-7.42 H 4272974946) PCO2 DAILY (test code = See_Comment L [Auto mated message] 5051808564) The system [employer] generated this result transmitted ref erence range: 41 - 51 mmHg. The reference r zac was not used to interpret this result as normal/abnor mal. PO2 DAILY (test code = See_Comment H [Autom ated message] 6995043219) The system [employer] generated this result transmitted ref erence range: 25 - 40 mmHg. The reference r zac was not used to interpret this result as normal/abnor mal. HCO3 DAILY (test code = See_Comment [Auto mated message] 2849771778) The system [employer] generated this result transmitted ref erence range: 24 - 28 mEq/L. The reference r zac was not used to interpret this result as normal/abnor mal. AC VBE(BEAKER) (test mEq/L code = 8396200419) Lab Interpretation (test Abnormal code = 82377-7) [facility]landCritical [id number] 21:55:26Jeanie Hallman MD ? ? 02/11/2020 ?4:55 [...] re-evaluation of patient's condition and examination of patientUnMethodist [facility] CenterCB WITH DIFFERENTIAL 2019-11-09 04:51:00 Test Item Value Reference Range Interpretation Comments WBC (test code = See_Comment [Automated 6690-2) message] The sy stem which generated this result transmitted reference range : 4.30 - 11.10 10*3/?L. The reference range was not used to interpret this result as normal/abnormal . RBC (test code = See_Comment H [Automated 789-8) message] The sy stem which generated this [...] RDW-SD (test code = 42.5 fL 39-49.9 01565-3) RDW-CV (test code = 13.2 % 12-15.5 788-0) PLT (test code = See_Comment [Automated 777-3) message] The sy stem which generated this result transmitted reference range : 166 - 358 10*3/ ?L. The reference r zac was not used to interpret this result as normal/abnormal . MPV (test code = 12.2 fL 9.5-12.9 66862-7) NRBC/100 WBC (test See_Comment [Automat ed code = 9989680487) message] The system which generated this result transmitted reference range : 0.0 - 10.0 /100 WBCs. The refer ence range was not u sed to interpret th is result as normal/abnormal . NRBC x10^3 (test code <0.01 See_Comment [Auto mated = 9651999720) message] The s ystem which generated this result transmitted reference range : 10*3/?L. The reference range was not used to interpret this result as normal/abnormal . GRAN MAT (NEUT) % 55.1 % (test code = 770-8) IMM GRAN % (test code 0.80 % = 1416746655) LYMPH % (test code = 36.2 % 736-9) MONO % (test code = 5.5 % 5905-5) EOS % (test code = 1.6 % 713-8) BASO % (test code = 0.8 % 706-2) GRAN MAT x10^3(ANC) 5.74 10*3/uL 1.88-7.09 (test code = 8786289410) IMM GRAN x10^3 (test 0.08 10*3/uL 0-0.06 H code = 6160920358) LYMPH x10^3 (test code 3.76 10*3/uL 1.32-3.29 H = 731-0) MONO x10^3 (test code 0.57 10*3/uL 0.33-0.92 = 742-7) EOS x10^3 (test code = 0.17 10*3/uL 0.03-0.39 711-2) BASO x10^3 (test code 0.08 10*3/uL 0.01-0.07 H = 704-7) Lab Interpretation Abnormal (test code = 10656-7) [facility] METABOLIC PANEL (NA, K, CL, CO2, GLUCOSE, BUN, CREATININE, CA)2019-11-09 04:33:00 Test Item Value Reference Range Interpretation Comments NA (test code = 139 mmol/L 135-145 8680786624) K (test code = 4.4 mmol/L 3.5-5 0658205687) CL (test code = 102 mmol/L 98-108 1858068341) CO2 TOTAL (test code = 27 mmol/L 23-31 0950435396) AGAP (test code = 2-16 7889254572) BUN (test code = 24 mg/dL 7-23 H 7055707028) GLUCOSE (test code = 106 mg/dL 70-110 0319022904) CREATININE (test code = 0.88 mg/dL 0.5-1.04 3015864142) CALCIUM (test code = 10.0 mg/dL 8.6-10.6 4147576593) eGFR Calculation mL/min/1.73m2 (Non-) (test code = 0767657053) eGFR Calculation mL/min/1.73m2 () (test code = 3675753596) TERESA (test code = TERESA) Association of [...] tests). Lab Interpretation Abnormal (test code = 83761-6) [facility] [id number] 04:31:00 Test Item Value Reference Range Interpretation Comments PREG SERUM (test code Negative = 6407156568) TERESA (test code = TERESA) Less than 10 IU/L. ?If low titer or ectopic is suspected, resubmit specimen in 48-72 hours. [facility]"
[2022-05-15] MEDS ORDERED: SMZ./TMP. 800/160 MG TABLET ONE (14:00)
[2022-05-15] MEDS ORDERED: LIDOCAINE 1% MPF 5 ML VIAL ONE (14:00)
--- NOTE | 2022-05-15 14:32 | ER ---
Nurse's Notes [facility] Name: Linda Urena Age: 46 yrs Sex: Female : 1975 Arrival Date: 05/15/2022 Time: 10:47 Bed Treatment Private MD: Diagnosis: Cutaneous abscess of right upper limb Presentation: 05/15 11:58 Chief complaint: Patient states: abscess to R wrist that began 3 days ago. Coronavirus ss screen: Client denies travel out of the [place] in the last 14 days. Ebola Screen: Patient denies exposure to infectious person. Patient denies travel to an Ebola-affected area in the 21 days before illness onset. Initial Sepsis Screen: Does the patient meet any 2 criteria? No. Patient's initial sepsis screen is negative. Does the patient have a suspected source of infection? No. Patient's initial sepsis screen is negative. Risk Assessment: Do you want to hurt yourself or someone else? Patient reports no desire to harm self or others. Onset of symptoms was May 12, 2022. 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 - Social history:: Smoking status: Patient denies any tobacco usage or history of. Screenin:44 Abuse screen: Denies threats or abuse. Denies injuries from another. Nutritional ld1 screening: No deficits noted. Tuberculosis screening: No symptoms or risk factors identified. Fall Risk None identified. Assessment: 14:43 Reassessment: No changes from previously documented assessment. See triage assessment. ld1 14:44 General: Appears in no apparent distress. uncomfortable, Behavior is calm, cooperative, ld1 appropriate for age. Pain: Complains of pain in dorsal aspect of right forearm Pain currently is 5 out of 10 on a pain scale. Neuro: Level of Consciousness is awake, alert, obeys commands, Oriented to person, place, time, situation. Cardiovascular: Capillary refill < 3 seconds Patient's skin is warm and dry. Respiratory: Airway is patent Respiratory effort is even, unlabored. Derm: Abscess located on dorsal aspect of right forearm is quarter sized. Vital Signs: 11:59 BP 177 / 119; Pulse 97; Resp 15; Temp 97.8(TE); Pulse Ox 98% on R/A; Weight 72.57 kg; ss Height 5 ft. 9 in. (175.26 cm); Pain 0/10; 11:59 Body Mass Index 23.63 (72.57 kg, 175.26 cm) ED Course: 10:47 Patient arrived in ED. rg4 11:59 Triage completed. ss 11:59 Arm band placed on right wrist. ss 12:56 Amarilis Gabriel FNP-C [facility]. kb 12:56 Mateo Rodriguez MD is Attending Physician. kb 14:44 Patient has correct armband on for positive identification. Bed in low position. Call ld1 light in reach. Side rails up X2. 14:44 Assist provider with I \T\ D: of an abscess on right forearm. Patient did not have IV ld1 access during this emergency room visit. 14:56 Dressings: Kerlix X 1; right arm non-adherent dressing x 1 right arm. eh3 Administered Medications: 13:55 Drug: Bactrim (trimethoprim-sulfamethoxazole) (160 mg-800 mg (DS) 1 tablet Route: PO; ld1 14:23 Follow up: Response: No adverse reaction ld1 14:22 Drug: Lidocaine (1 %) 1 vials {Note: Administered by ALICIA Gregory.} Volume: 5 ld1 ml; Route: Infiltration; Medication: 14:44 VIS not applicable for this client. ld1 Outcome: 14:31 Discharge ordered by . kb 14:44 Discharged to home ambulatory. ld1 14:44 Condition: stable 14:44 Discharge instructions given to patient, Instructed on discharge instructions, follow up and referral plans. medication usage, Demonstrated understanding of instructions, follow-up care, medications, Prescriptions given X 1. 14:57 Patient left the ED. 3 Signatures: Amarilis Gabriel FNP-C FNP-Ckb Smirch, Shelby, RN RN ss Nichelle Clifford 4 Joi Teran RN RN ld1 Damaris Coronado 3 Corrections: (The following items were deleted from the chart) 12:00 11:59 PMHx: None; [facility]
--- NOTE | 2022-05-15 14:32 | EDPHYS ---
Physician Documentation [facility] Name: Linda Urena Age: 46 yrs Sex: Female : 1975 Arrival Date: 05/15/2022 Time: 10:47 Bed Treatment Private MD: ED Physician Mateo Rodriguez HPI: 05/15 13:04 This 46 yrs old Female presents to ER via Ambulatory with complaints of Abscess. kb 13:04 The patient presents with an abscess of the dorsal aspect of right forearm. kb Description: erythematous, swollen, warm. Onset: The symptoms/episode began/occurred 3 day(s) ago. Possible cause(s): unknown. Associated signs and symptoms: Pertinent positives: erythema, swelling, Pertinent negatives: discharge, drainage, foreign body sensation, fever, headache, nausea, shortness of breath, vomiting. Modifying factors: the symptoms are alleviated by nothing, the symptoms are aggravated by pressure, squeezing the lesion and expressing the contents, touching. Severity of symptoms: At their worst the symptoms were moderate, in the emergency department the symptoms are unchanged. The patient has not experienced similar symptoms in the past. The patient has not recently seen a physician. Pt reports she was bitten by a spider 3 days ago. States it started off as a small bite and continuously gotten bigger. States it opened up today and drained a small amount.. 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 - Social history:: Smoking status: Patient denies any tobacco usage or history of. ROS: 13:03 Constitutional: Negative for fever, chills, and weight loss. kb 13:03 Skin: Positive for abscess, of the dorsal aspect of right forearm. 13:03 All other systems are negative. Exam: 13:03 Constitutional: This is a well developed, well nourished patient who is awake, alert, kb and in no acute distress. Head/Face: Normocephalic, atraumatic. ENT: Moist Mucous membranes Cardiovascular: Regular rate and rhythm with a normal S1 and S2. No gallops, murmurs, or rubs. No pulse deficits. Respiratory: Respirations even and unlabored. No increased work of breathing. Talking in full sentences Abdomen/GI: Soft, non-tender. No distention MS/ Extremity: Pulses equal, no cyanosis. Neurovascular intact. Full, normal range of motion. Neuro: Awake and alert, GCS 15, oriented to person, place, time, and situation. Moves all extremities. Normal gait. Psych: Awake, alert, with orientation to person, place and time. Behavior, mood, and affect are within normal limits. 13:03 Skin: abscess, that is moderate sized, of the dorsal aspect of right forearm, with fluctuance, with induration. Vital Signs: 11:59 BP 177 / 119; Pulse 97; Resp 15; Temp 97.8(TE); Pulse Ox 98% on R/A; Weight 72.57 kg; ss Height 5 ft. 9 in. (175.26 cm); Pain 0/10; 11:59 Body Mass Index 23.63 (72.57 kg, 175.26 cm) Procedures: 14:30 I \T\ D: Incision and drainage was performed for an abscess of the dorsal aspect of right kb forearm Prepped with Betadine, Anesthetized with 1 ml's 1% Lidocaine. Incised with #11 blade. Drained moderate amount purulent fluid. Dressing: sterile 4x4 gauze, the patient tolerated the procedure well. MDM: 12:56 Patient medically screened. kb 12:59 Data reviewed: vital signs, nurses notes. Data interpreted: Pulse oximetry: on room air kb is 98 %. Interpretation: normal. 14:30 Counseling: I had a detailed discussion with the patient and/or guardian regarding: the kb historical points, exam findings, and any diagnostic results supporting the discharge/admit diagnosis, the need for outpatient follow up, a family practitioner, to return to the emergency department if symptoms worsen or persist or if there are any questions or concerns that arise at home. 05/15 13:34 Order name: I\T\D Setup; Complete Time: 13:55 kb Administered Medications: 13:55 Drug: Bactrim (trimethoprim-sulfamethoxazole) (160 mg-800 mg (DS) 1 tablet Route: PO; ld1 14:23 Follow up: Response: No adverse reaction ld1 14:22 Drug: Lidocaine (1 %) 1 vials {Note: Administered by ALICIA Gregory.} Volume: 5 ld1 ml; Route: Infiltration; Disposition: 05/16 09:05 Co-signature as Attending Physician, Mateo Rodriguez MD I agree with the assessment and kdr plan of care. Disposition Summary: 05/15/22 14:31 Discharge Ordered Location: Home kb Condition: Stable kb Diagnosis - Cutaneous abscess of right upper limb kb Followup: kb - With: Emergency Department - When: As needed - Reason: Worsening of condition Followup: kb - With: Private Physician - When: 2 - 3 days - Reason: Recheck today's complaints, Continuance of care, Re-evaluation by your physician Discharge Instructions: - Discharge Summary Sheet kb - Skin Abscess, [id number] kb - Incision and Drainage, Care After kb - Form - Return To Work ld1 Forms: - Medication Reconciliation Form kb - Thank You Letter kb - Antibiotic Education kb - Prescription Opioid Use kb Prescriptions: - Bactrim DS 800-160 mg Oral Tablet - take 1 tablet by ORAL route every 12 hours for 10 days; 20 tablet; Refills: 0, kb Product Selection Permitted Signatures: Amarilis Gabriel FNP-C FNP-Mateo George MD MD [facility] Kay Reese RN RN Joi Teran RN RN ld1 Corrections: (The following items were deleted from the chart) 05/15 12:00 11:59 PMHx: None; ss
[2022-05-15 15:21] VITALS: BP 177/119; TEMP 97.8; O2SAT 98
== END 2022-05-15 14:57 | disposition home or self-care (01) ==
LOC: ER 10:45
PROC: 0H9DXZZ Drainage of Right Lower Arm Skin, External Approach (ICD-10-PCS; principal; 2022-05-15)
DX: L02.413 Cutaneous abscess of right upper limb (principal)
CPT/HCPCS: 99283

== ENCOUNTER 2022-05-27 12:33 | Emergency (ER) | payer SELFPAY ==
--- OUTSIDE RECORDS SUMMARY | 2022-05-27 12:38 | XMS REPORT | Continuity of Care Document ---
:1975 Author Organization [facility] t Address [address] [place] [address] Care Team Providers Name Role Phone Pcp, Patient Does Not Have A Primary Care Physician [id number] LEE ANN MILLS Attending Clinician Unavailable Lee Ann Hernandez Attending Clinician UNKNOWN, ATTENDING Attending Clinician Unavailable Katheryn Shukla Attending Clinician Rafy Campbell Attending Clinician Doctor Unassigned, [place] Attending Clinician Unavailable Shelby Ba Attending Clinician [facility] Attending Clinician Unavailable Ora Mckeon Attending Clinician ORA ARAIZA Attending Clinician Unavailable Jeanie Hallman MD Attending Clinician Sudhakar Westbrook MD Attending Clinician JEANIE HALLMAN Attending Clinician Unavailable Mateo Arora Attending Clinician Sudhakar Westbrook MD Admitting Clinician Problems Condition Condition Condition Status Onset Resolution Last Treating Co mments Source Name Details Category Date Date Treatment Clinician Date Intentiona Intentiona Disease Active 2020-0 U nivers l l 02-10 [place] [...] Date Quantity Comments Source Exposure to Yes [facility] SARS-CoV-2 (event) Medica l Branch History [facility] 2020-02-12 2020-02-12 4 [facility] Financial 00:00:00 00:00:00 Medical Branch History [facility] Food 2020-02-12 2020-02-12 2 Univers ity [facility] Worry 00:00:00 00:00:00 Medical Branch History [facility] Food 2020-02-12 2020-02-12 1 [facility] ity [facility] Scarcity 00:00:00 00:00:00 Medical Branch History SDOH 2020-02-12 2020-02-12 2 [facility] Med 00:00:00 00:00:00 Medical Bra nch History [facility] 2020-02-12 2020-02-12 2 [facility] Non-Med 00:00:00 00:00:00 Medical Branch Tobacco use and 2020-02-11 2020-02-11 Never used [facility] exposure 00:00:00 00:00:00 Medical Branch Education 2020-02-11 2020-02-11 13 [facility] 00:00:00 00:00:00 Medical Branch Sex [birth year] [facility] 00:00:00 00:00:00 Medical Branch Smoking Status Start Date Stop Date Source Never smoker [facility] xa Medical Branch Unknown if ever smoked [facility] Medical Branch Medications Ordered Filled Start [...] mg 11/05/21 at 1345, ALFREDITO proMETHazin Yes [id number] 25mg Take 1 Univers e 25 mg 1-25 tablet by ity of tablet 00:00: mouth [place] 00 every 6 Medical (six) Branch hours as needed for Nausea and Vomiting (N/V) or N/V unresponsi ve to Ondansetro n. traMADoL No 50mg 50 mg, Univer s (ULTRAM) 2-05 02-04 Oral, ity of tablet 50 00:00: 23:02 ONCE, [place] mg [place] :00 dose, [facility] Medical 11/15/20 at Branch 1800, Routine ondansetron No 4mg 4 mg, Slow Univers (ZOFRAN 11-15 02-04 IV Push, ity of (PF)) 21:15: 20:15 ONCE, 1 [place] injection 4 00 :00 dose, [facility] Med ical mg 11/15/20 at Branch 1515, ALFREDITO traMADoL 50 Yes [id number] 50mg Take 1 Univ ers mg tablet 2-04 tablet by ity o f 00:00: mouth [place] 00 every 6 Medical (six) Branch hours as needed for Pain (scale 7-10) for up to 14 doses. Indication s: acute pain ondansetron Yes [id number] 4mg Take 1 Univers (ZOFRAN 2-04 tablet by ity of ODT) 4 mg 00:00: mouth [place] disintegrat 00 every 8 Medic al ing tablet (eight) Branch hours as needed for Nausea and Vomiting (N/V). esomeprazol Yes [id number] 20mg Take 20 mg Univers e (NEXIUM) [...] doses. Indication s: acute pain ondansetron Yes [id number] 4mg Take 1 Univers (ZOFRAN 2-04 tablet by ity of ODT) 4 mg 00:00: mouth [place] disintegrat 00 every 8 Medic al ing tablet (eight) Branch hours as needed for Nausea and Vomiting (N/V). esomeprazol Yes [id number] 20mg Take 20 mg Univers e (NEXIUM) [...] medication : SAGAR MOORE methocarbam 2019-10 Yes [id number] 750mg Take 1 Univers oL 2-30 tablet by ity of (ROBAXIN-75 00:00: mouth 4 Good as 0) 750 mg 00 (four) Medical tablet times Branch daily as needed for Pain (scale 7-10). ibuprofen 2019-10 Yes [id number] 800mg Take 1 Univers 800 mg 2-30 tablet by ity of tablet 00:00: mouth [place] 00 every 8 Medical (eight) Branch hours as needed for Pain (scale 4-6). methocarbam 2019-10 Yes [id number] 750mg Take 1 Univers oL 2-30 tablet by ity of (ROBAXIN-75 00:00: mouth 4 Good as 0) 750 mg 00 (four) Medical tablet times Branch daily as needed for Pain (scale 7-10). ibuprofen 2019- Yes [id number] 800mg Take 1 Univers 800 mg 2-30 tablet by ity of tablet 00:00: mouth [place] 00 every 8 Medical (eight) Branch hours as needed for Pain (scale 4-6). methocarbam 2019-10 Yes [id number] 750mg Take 1 Univers oL 2-30 tablet by ity of (ROBAXIN-75 00:00: mouth 4 Good as 0) 750 mg 00 (four) Medical tablet times Branch daily as needed for Pain (scale 7-10). ibuprofen 2019-10 Yes [id number] 800mg Take 1 Univers 800 mg 2-30 tablet by ity of tablet 00:00: mouth [place] 00 every 8 Medical (eight) Branch hours as needed for Pain (scale 4-6). metoprolol 2020- No [id number] 50mg Take 1 Univers tartrate 50 5-04 06-04 tablet by it y of mg tablet 00:00: 04:59 [place] 00 :00 (two) Medical times Branch daily for 30 days. metoprolol 2019- 2020- No [id number] 50mg Take 1 Univers tartrate 50 -04 06-04 tablet by it y of mg tablet 00:00: 04:59 [place] 00 :00 (two) Medical times Branch daily for 30 days. cefdinir 2020- No 300mg 300 mg, Univ ers (OMNICEF) - 05-06 Oral, ity of capsule 300 15:00: 12:59 Q12H, 6 [place] mg [place] :00 doses, Medical First dose Branch on Thu02/12/20 at 1000, Last dose on Thu02/14/20 at [...] of 1,000 mg in 14:00: 14:47 Piggyback, [place] NaCl 0.9% 00 :17 DAILY, Medical (NS) 50 mL First dose Bra nch MINI-BAG on [place] 02/12/20 at 0900, Until Discontinu ed, 50 mL
Reas on for Anti-Infec tive: Documented Infection< br>Documen jeovanny Infection Site: Urine
D uration of Therapy: Other (see Comments) LORazepam 2019-0 Yes 1mg 1 mg, Slow Un quintin (ATIVAN) 503 IV Push, ity of injection 1 06:10: Q4HPRN, Good as mg 26 Starting Medical [place] 02/12/20 Branch at 0110, Until Discontinu ed, [...] 1000mL at 999 Uni vers (NS) bolus 02-11 05-03 mL/hr, ity of infusion 00:15: 00:40 [...] at Branch 1914, STAT LORazepam 2020-0 Yes [id number] .5mg Take 1 Un quintin 0.5 mg 5-03 tablet by ity of tablet 00:00: mouth (two) Medical times Branch daily as needed for Anxiety. LORazepam 2020-0 Yes [id number] .5mg Take 1 Un quintin 0.5 mg 5-03 tablet by ity of tablet 00:00: mouth (two) Medical times Branch daily as needed for Anxiety. LORazepam 2020-0 Yes [id number] .5mg Take 1 Un quintin 0.5 mg 5-03 tablet by ity of tablet 00:00: mouth (two) Medical times Branch daily as needed for Anxiety. LORazepam 2020-0 Yes [id number] .5mg Take 1 Un quintin 0.5 mg 5-03 tablet by ity of tablet 00:00: mouth (two) Medical times Branch daily as needed for Anxiety. LORazepam 2020-0 Yes [id number] .5mg Take 1 Un quintin 0.5 mg 5-03 tablet by ity of tablet 00:00: mouth (two) Medical times Branch daily as needed for Anxiety. LORazepam 2020-0 Yes [id number] .5mg Take 1 Univers 0.5 mg 5-03 tablet by ity of tablet 00:00: mouth (two) Medical times Branch daily as needed for Anxiety. LORazepam 2020-0 Yes [id number] .5mg Take 1 Un quintin 0.5 mg - tablet by ity of tablet 00:00: mouth 2 [place] 00 (two) Medical times Branch daily as needed for Anxiety. cefdinir 2019-2019- No [id number] 300mg Take 1 U nivers 300 mg 02-11-07 capsule by ity of capsule 00:00: 04:59 mouth [place] 00 :00 every 12 Medical (twelve) Branch hours for 3 days. cefdinir 2019-2019- No [id number] 300mg Take 1 U nivers 300 mg -12 14- capsule by ity of capsule 00:00: 04:59 mouth [place] 00 :00 every 12 Medical (twelve) Branch hours for 3 days. cefdinir 2019-2019- No [id number] 300mg Take 1 U nivers 300 mg 02-11- capsule by ity of capsule 00:00: 04:59 mouth [place] 00 :00 every 12 Medical (twelve) Branch hours for 3 days. KCL 2019- No 10meq 10 mEq, IV Unive rs (POTASSIUM 02-10 Piggyback, it y of CHLORIDE) 23:30: 22:46 ONCE, 1 [place] 10 mEq in 00 :00 dose, Sat Medic al NaCl 0.9% 02/11/20 at [facility] h (NS) 100 mL 1830, 100 piggyback mL cefTRIAXone 2019- No 1000mg 1,000 mg, Univers (ROCEPHIN) 02-10 IV ity of 1,000 mg in 23:30: 23:16 [place], [place] NaCl 0.9% 00 :00 ONCE, 1 Medical (NS) 50 mL dose, Sat [facility] ch MINI-BAG 02/11/20 at 1830, 50 mL
[...] Sat Med ical ORBITAL) 25 02/11/20 at [facility] gram/120 mL 1745, ALFREDITO suspension 50 g amLODIPine Yes [id number] 5mg Take 1 U nivers 5 mg tablet 1-28 tablet by ity of 00:00: mouth [place] 00 daily. Medical Branch amLODIPine Yes [id number] 5mg Take 1 U nivers 5 mg tablet 1-28 tablet by ity of 00:00: mouth [place] 00 daily. Medical Branch amLODIPine Yes [id number] 5mg Take 1 U nivers 5 mg tablet 1-28 tablet by ity of 00:00: mouth [place] 00 daily. Medical Branch amLODIPine 0 Yes [id number] 5mg Take 1 U nivers 5 mg tablet 1-28 tablet by ity of 00:00: mouth [place] 00 daily. Medical Branch amLODIPine 0 Yes [id number] 5mg Take 1 U nivers 5 mg tablet 1-28 tablet by ity of 00:00: mouth [place] 00 daily. Medical Branch amLODIPine 0 Yes [id number] 5mg Take 1 U nivers 5 mg tablet 1-28 tablet by ity of 00:00: mouth [place] 00 daily. Medical Branch amLODIPine 0 Yes [id number] 5mg Take 1 U nivers 5 mg tablet 1-28 tablet by ity of 00:00: mouth [place] 00 daily. Medical Branch amLODIPine 0 Yes [id number] 5mg Take 1 U nivers 5 mg tablet 1-28 tablet by ity of 00:00: mouth [place] 00 daily. Medical Branch ibuprofen Yes [id number] 800mg Take 1 U nivers 800 mg 2-19 tablet by ity of tablet 00:00: mouth [place] 00 every 6 Medical (six) Branch hours as needed for Pain (scale 4-6). ibuprofen 2019-0 Yes [id number] 800mg Take 1 U nivers 800 mg 2-19 tablet by ity of tablet 00:00: mouth [place] 00 every 6 Medical (six) Branch hours as needed for Pain (scale 4-6). ibuprofen 2019-0 Yes [id number] 800mg Take 1 U nivers 800 mg 2-19 tablet by ity of tablet 00:00: mouth [place] 00 every 6 Medical (six) Branch hours as needed for Pain (scale 4-6). ibuprofen 2018-0 Yes [id number] 800mg Take 1 U nivers 800 mg 2-19 tablet by ity of tablet 00:00: mouth [place] 00 every 6 Medical (six) Branch hours as needed for Pain (scale 4-6). ibuprofen 2018-0 Yes [id number] 800mg Take 1 U nivers 800 mg 2-19 tablet by ity of tablet 00:00: mouth [place] 00 every 6 Medical (six) Branch hours as needed for Pain (scale 4-6). ibuprofen Yes [id number] 800mg Take 1 U nivers 800 mg 2-19 tablet by ity of tablet 00:00: mouth [place] 00 every 6 Medical (six) Branch hours as needed for Pain (scale 4-6). ibuprofen 0 Yes [id number] 800mg Take 1 U nivers 800 mg 2-19 tablet by ity of tablet 00:00: mouth [place] 00 every 6 Medical (six) Branch hours as needed for Pain (scale 4-6). ibuprofen 0 Yes [id number] 800mg Take 1 U nivers 800 mg 2-19 tablet by ity of tablet 00:00: mouth [place] 00 every 6 Medical (six) Branch hours as needed for Pain (scale 4-6). Vital Signs Vital Name Observation Time Observation Value Comments Source Systolic blood 2021-11-05 18:33:00 150 [facility]Hg[facility] Diastolic blood 2021-11-05 18:33:00 122 mm[Hg] [facility] Heart rate 2021-11-05 18:33:00 96 /min [facility] Body temperature 2021-11-05 18:33:00 35.83 Melly [facility] Respiratory rate 2021-11-05 18:33:00 18 /min [facility] Body weight 2021-11-05 18:33:00 68.947 kg [facility] [place] [facility] BMI 2021-11-05 18:33:00 22.45 kg/m2 [facility] [place] [facility] Oxygen saturation in 2021-11-05 18:33:00 100 /min University of Arterial blood by [place] [employer] Pulse oximetry Branch Systolic blood 2020-11-15 22:45:00 178 mm[Hg] Univer sity of pressure [place] [facility] Diastolic blood 2020-11-15 22:45:00 105 mm[Hg] Unive rsity of pressure [place] [facility] Heart rate 2020-11-15 22:45:00 85 /min [facility] [place] [facility] Respiratory rate 2020-11-15 22:45:00 18 /min Univ ersity of [place] [facility] Oxygen saturation in 2020-11-15 22:45:00 97 /min University of Arterial blood by [facility] Pulse oximetry Branch Body temperature 2020-11-15 19:41:00 37.28 Melly Univ ers[facility] [place] [facility] Body weight 2020-11-15 19:41:00 68.947 kg [facility] [place] [facility] BMI 2020-11-15 19:41:00 22.45 kg/m2 [facility] [place] [facility] Systolic blood 2020-10-10 21:47:00 170 mm[Hg] Univer sity of pressure [place] [facility] Diastolic blood 2020-10-10 21:47:00 100 mm[Hg] Unive rsity of pressure [place] [facility] Heart rate 2020-10-10 20:43:00 89 /min [facility] [place] [facility] Body temperature 2020-10-10 20:43:00 37.06 Melly [facility] [place] [facility] Respiratory rate 2020-10-10 20:43:00 20 /min Univ ers[facility] [place] [facility] Body height 2020-10-10 20:43:00 175.3 cm [facility] [place] [facility] Body weight 2020-10-10 20:43:00 68.947 kg [facility] [place] [facility] BMI 2020-10-10 20:43:00 22.45 kg/m2 [facility] [place] [facility] Oxygen saturation in 2020-10-10 20:43:00 98 /min University of Arterial blood by [place] Medi indy Pulse oximetry Branch Systolic blood 2020-02-13 21:10:00 142 mm[Hg] Univer sity of pressure [place] [facility] Diastolic blood 2020-02-13 21:10:00 94 mm[Hg] Unive rsity of pressure [place] [facility] Heart rate 2020-02-13 21:05:00 100 /min Universi ty of [facility] Body temperature 2020-02-13 21:02:00 36.06 Melly Univ ersity of [facility] Respiratory rate 2020-02-13 21:02:00 17 /min Univ ersity of [place] [facility] Body height 2020-02-13 21:02:00 175.3 cm [facility] [place] [facility] Body weight 2020-02-13 21:02:00 67.132 kg [facility] [place] [facility] BMI 2020-02-13 21:02:00 21.86 kg/m2 Universi ty of [place] Medical [place] Oxygen saturation in 2020-02-13 21:02:00 96 /min University of Arterial blood by [facility] Pulse oximetry Branch Systolic blood 2020-02-12 17:00:00 142 mm[Hg] Univer sity of pressure [place] [facility] Diastolic blood 2020-02-12 17:00:00 109 mm[Hg] Unive rsity of pressure [place] [facility] Heart rate 2020-02-12 17:00:00 112 /min Universi ty of [facility] Body temperature 2020-02-12 17:00:00 36.28 Melly Univ ersity of [facility] Respiratory rate 2020-02-12 17:00:00 21 /min Univ ersity of [facility] Oxygen saturation in 2020-02-12 17:00:00 95 /min University of Arterial blood by [facility] Pulse oximetry Branch Body height 2020-02-12 01:14:00 167.6 cm [facility] [place] [facility] Body weight 2020-02-12 01:14:00 67.495 kg [facility] [place] [facility] BMI 2020-02-12 01:14:00 24.02 kg/m2 [facility] [place] [facility] Systolic blood 2019-11-09 04:39:00 154 mm[Hg] Univer sity of pressure [place] [facility] Diastolic blood 2019-11-09 04:39:00 111 mm[Hg] Unive rsity of pressure [place] [facility] Heart rate 2019-11-09 04:39:00 76 /min [facility] Respiratory rate 2019-11-09 04:39:00 18 /min [facility] Oxygen saturation in 2019-11-09 04:39:00 98 /min [facility] Arterial blood by [facility] Pulse oximetry [place] Body temperature 2019-11-09 03:30:34 37.11 Melly [facility] Body height 2019-11-09 02:29:00 175.3 cm [facility] Body weight 2019-11-09 02:29:00 72.576 kg [facility] BMI 2019-11-09 02:29:00 23.63 kg/m2 [facility] Procedures Procedure Date / Time Performing Clinician Source Performed URINALYSIS 2021-11-05 19:01:00 Lee Ann Mills [facility] NOTICE OF PRIVACY 2021-11-05 18:26:00 Doctor Unassigned, No [facility] CONSENT/REFUSAL FOR 2021-11-05 18:25:46 Doctor Unassigned, No [facility] [place] DIAGNOSIS AND TREATMENT Name [facility] POCT TEST 2020-11-15 21:21:00 Katheryn Ames [facility] URINALYSIS 2020-11-15 21:19:00 Katheryn Ames [facility] LIPASE 2020-11-15 20:13:00 Hui [facility] COMP. METABOLIC PANEL 2020-11-15 20:13:00 Katheryn mAes [facility] ([id number]) [facility] CBC WITH DIFF 2020-11-15 20:13:00 AmesKatheryn bangura [facility] CONSENT/REFUSAL FOR 2020-11-15 19:22:43 Doctor Unassigned, No Un [facility] [place] DIAGNOSIS AND TREATMENT Name [facility] NOTICE OF PRIVACY 2020-10-10 20:26:59 Doctor Unassigned, No Univ [facility] CONSENT/REFUSAL FOR 2020-10-10 20:26:45 Doctor Unassigned, No Un iversity [facility] DIAGNOSIS AND TREATMENT Name [facility] COMP. METABOLIC PANEL 2020-02-12 09:07:00 Merlin Stewart [facility] ([id number]) Medical Branch CBC WITH DIFFERENTIAL 2020-02-12 09:07:[address] [facility] LACTIC ACID WHOLE BLOOD 2020-02-12 01:51:00 Jeanie Hallman [facility] BLOOD CULTURE SCREEN 2020-02-11 22:33:00 Jeanie Hallman [facility] LACTIC ACID WHOLE BLOOD 2020-02-11 22:03:00 Jeanie Hallman [facility] CRITICAL CARE 2020-02-11 21:55:26 Jeanie Hallman [facility] URINALYSIS 2020-02-11 21:53:00 Lexx [facility] ADC / LCC - DRUG SCREEN 2020-02-11 21:53:00 Jeanie Hallman [facility] TRIAGE [facility] CORONAVIRUS COVID-19 2020-02-11 21:53:00 Jeanie Hallman [facility] TESTING [facility] ACUTE CARE VENOUS BLOOD 2020-02-11 21:46:00 Jeanie Hallman [facility] GAS [facility] Branch LIPASE 2020-02-11 21:45:00 Jeanie Hallman [facility] MAGNESIUM 2020-02-11 21:45:00 [facility] TEST, SERUM 2020-02-11 21:45:[address] [facility] TROPONIN I 2020-02-11 21:45:00 Jeanie Hallman [facility] FREE T4 2020-02-11 21:45:00 Jeanie Hallman [facility] THYROID STIMULATING 2020-02-11 21:45:00 Jeanie Hallman [facility] HORMONE [facility] HEPATIC FUNCTION PANEL 2020-02-11 21:45:00 Jeanie Hallman [facility] ([id number]) (ALB,T.PRO,BILI [facility] Branch T,BU/BC,ALT,AST,ALK PHOS) BASIC METABOLIC PANEL 2020-02-11 21:45:00 Jeanie Hallman [facility] (NA, K, CL, CO2, Medical Branch GLUCOSE, BUN, CREATININE, CA) SALICYLATE 2020-02-11 21:45:00 Jeanie Hallman [facility] CBC WITH DIFFERENTIAL 2020-02-11 21:45:[address] [facility] PROTHROMBIN TIME / INR 2020-02-11 21:45:00 Jeanie Hallman [facility] ACTIVATED PARTIAL 2020-02-11 21:45:00 Jeanie Hallman [facility] THRMPLAS [facility] N-TERMINAL PRO-BNP 2020-02-11 21:45:00 Jeanie Hallman [facility] y [facility] FREE T3 2020-02-11 21:45:00 Lexx Jeanie [facility] PHOSPHORUS 2020-02-11 21:45:00 [facility] CREATINE KINASE 2020-02-11 21:45:00 Lexx [facility] EKG-12 LEAD 2020-02-11 21:37:16 Lexx Jeanie [facility] TEST, SERUM 2019-11-09 04:13:[address] [facility] BASIC METABOLIC PANEL 2019-11-09 04:13:00 Mateo Humphreys [facility] (NA, K, CL, CO2, [facility] GLUCOSE, BUN, CREATININE, CA) CBC WITH DIFFERENTIAL 2019-11-09 04:13:[address] [facility] NOTICE OF PRIVACY 2019-11-09 02:07:51 Doctor Unassigned, No Univ [facility] PRACTICES Name [facility] CONSENT/REFUSAL FOR 2019-11-09 02:07:37 [facility]igned, No [facility] Name [facility] Encounters Start End Encounter Admission Attending Care Care Encounter Source Date/Time Date/Time Type Type Clinicians Facility Department ID 2021-08-10 Emergency [facility] [id number] Univers 21:52:29 [facility] [place] 2021-08-10 Emergency [facility] [id number] Univers 13:54:08 [facility] [place] 2021-11-05 2021-11-05 [id number] Univers 12:35:00 15:04:00 LEE ANN [facility] [place] 2021-11-05 2021-11-05 Emergency Lina [facility] [id number] Univers 12:35:00 15:04:00 Lee Ann MERA [id number] i ty of [place] [id number] [facility] [id number] [address] 2021-10-30 2021-10-30 Outpatient R UNKNOWN, [facility] [id number] Univers 10:15:00 10:15:00 ATTENDING [id number] ity [facility] 2021-10-30 2021-10-30 Outpatient R UNKNOWN, [facility] [id number] Univers 10:15:00 10:15:00 [facility] 2020-11-15 2020-11-15 [facility] [id number] Univers 13:42:00 17:07:00 Katheryn Mera [id number] i ty of [place] [id number] [facility] [id number] [address] 2020-10-10 2020-10-10 Emergency Veronica [facility] [id number] Univers 14:45:00 15:52:00 Rafy [place] [id number] i ty of [place] [id number] [facility] [id number] [address] 2020-10-10 2020-10-10 Orders Doctor NOELLE [id number] Univers 00:00:00 00:00:00 Only Unassigned, ROB [id number] ity of [place] [facility] [id number] Good [id number] [facility] 009 Branch 2020-02-14 2020-02-14 Transition Ranjith Ba [id number] Univers 00:00:00 00:00:00 of Care Shelby Kam [id number] ity of [place] [id number] [facility] [place] [facility] [id number] [facility] 403 Branch 2020-02-13 2020-02-13 Urgent Provider, [facility] Urgent Care [facility] [id number] Univers 15:50:12 16:52:33 Care Ora Araiza [facility] [id number] ity of [place] [id number] Good as Professio [id number] Nv dical nal [address] [place] [address] 2020-02-13 2020-02-13 Outpatient R MAXI [facility] [id number] Univers 16:00:00 16:00:00 ORA itakash [facility] 2020-02-11 2020-02-12 Hospital Jeanie Hallman [facility] [id number] Univers 16:56:30 13:25:00 Encounter Sudhakar Westbrook [id number] ity of [place] [id number] [facility] [id number] [address] 2020-02-11 2020-02-11 Emergency X LEXX [facility] ERT [id number] Univers 16:33:00 16:33:00 JEANIE [facility] [place] 2019-11-08 2019-11-08 Emergency Mateo Humphreys [facility] [id number] Univers 21:24:57 23:17:00 T Donnie [id number] i ty of [place] [id number] [facility] [id number] [address] Results Test Description Test Time Test Comments Results Result Comments Source URINALYSIS 2020-11-15 22:17:00 Test Item Value Reference Range Interpretation Comme nts APPEARANCE (test code = Hazy Clear A 7606105357) COLOR (test code = 3646882127) Yellow Yellow PH (test code = 5523058699) 4.8-8.0 SP GRAVITY (test code = 1.003-1.030 1216377050) GLU U QUAL (test code = Normal Normal 0533891927) BLOOD (test code = 5120470063) Negative Negative KETONES (test code = 1669972786) 20 mg/dL Negative A PROTEIN (test code = 2887-8) Negative Negative UROBILIN (test code = Normal Normal 4491830053) BILIRUBIN (test code = Negative Negative 4800748447) NITRITE (test code = 7905569615) Negative Negative LEUK HELADIO (test code = Negative Negative 3558054088) RBC/HPF (test code = 3800737963) See_Comment [Automated message] The system which ge nerated this result transmit jeovanny reference range: 0 - 3 HP F. The reference range was not used to interpret th is result as normal/abnormal . WBC/HPF (test code = 7353759397) See_Comment [Automated message] The system which ge nerated this result transmit jeovanny reference range: 0 - 5 HP F. The reference range was not used to interpret th is result as normal/abnormal . BACTERIA (test code = Few Negative A 5025728037) MUCOUS (test code = 1251153200) Slight Negative LPF A SQ EPITH (test code = HPF 2621903868) Lab Interpretation (test code = Abnormal 71415-4) [facility] [id number] 21:21:00 Test Item Value Reference Range Interpretation Comments POCT PREG (test code = 1605) neg On board controls acceptable with yes C Line (test code = 3574) POCT PREG LOT # (test code = 3575) [id number] POCT PREG TEST DATE (test 06/11/2022 code = 3576) Lab Interpretation (test code = Normal 00743-9) [facility]OLIC PAN[facility] (03231)2020-11-15 20:40:00 Test Item Value Reference Range Interpretation Comments NA (test code = 137 mmol/L 135-145 1009105195) K (test code = 3.5 mmol/L 3.5-5 9552060818) CL (test code = 100 mmol/L 98-108 7886742506) CO2 TOTAL (test code = 28 mmol/L 23-31 9656061858) AGAP (test code = 2-16 4858374903) BUN (test code = 19 mg/dL 7-23 2906183931) GLUCOSE (test code = 82 mg/dL 70-110 8440587527) CREATININE (test code 0.80 mg/dL 0.5-1.04 = 5636832691) TOTAL BILI (test code 0.6 mg/dL 0.1-1.1 = 2405846553) CALCIUM (test code = 9.4 mg/dL 8.6-10.6 3300406413) T PROTEIN (test code = 7.9 g/dL 6.3-8.2 8031202955) ALBUMIN (test code = 4.5 g/dL 3.5-5 9097392821) ALK PHOS (test code = 85 U/L 34-122 3723635280) ALTv (test code = 9 U/L 5-35 1742-6) AST(SGOT) (test code = 25 U/L 13-40 8073203614) eGFR Calculation mL/min/1.73m2 (Non-) (test code = 9797783494) eGFR Calculation mL/min/1.73m2 () (test code = 8286098868) TERESA (test code = TERESA) Association of [...] or urine or abnormalities in imaging tests). [facility] 20:40:00 Test Item Value Reference Range Interpretation Comments LIPASE (test code = 5825317482) 77 U/L 0-220 Lab Interpretation (test code = Normal 06757-1) [facility] WITH [id number] 20:23:00 Test Item Value Reference Range Interpretation Comments WBC (test code = See_Comment [Automated message] 6690-2) The system [employer] generated this result transmitted ref erence range: 4.30 - 1 1.10 10*3/?L. The re ference range was not u sed to interpret this result as normal/abnor mal. RBC (test code = See_Comment [Automated message] 789-8) The system [employer] generated this result transmitted ref erence range: [...] RDW-SD (test code 39.8 fL 39-49.9 = 26408-0) RDW-CV (test code 12.4 % 12-15.5 = 788-0) PLT (test code = See_Comment [Automated message] 777-3) The system [employer] generated this result transmitted ref erence range: 166 - 35 8 10*3/?L. The re ference range was not u sed to interpret this result as normal/abnor mal. MPV (test code = 11.1 fL 9.5-12.9 68463-3) NRBC/100 WBC (test See_Comment [Automat ed message] code = 9815942158) The syste [employer] which generated this result transmitted ref erence range: 0.0 - 10 .0 /100 WBCs. The refer ence range was not u sed to interpret this result as normal/abnor mal. NRBC x10^3 (test <0.01 See_Comment [Automated message] code = 9149228097) The syste m which generated this result transmitted ref erence range: 10*3/?L. The reference range was not used to interpr et this result as normal/abnormal . GRAN MAT (NEUT) % 65.4 % (test code = 770-8) IMM GRAN % (test 0.30 % code = 9301742745) LYMPH % (test code 25.7 % = 736-9) MONO % (test code 6.7 % = 5905-5) EOS % (test code = 1.4 % 713-8) BASO % (test code 0.5 % = 706-2) GRAN MAT 4.78 10*3/uL 1.88-7.09 x10^3(ANC) (test code = 1017633037) IMM GRAN x10^3 <0.03 0-0.06 (test code = 0666997574) LYMPH x10^3 (test 1.88 10*3/uL 1.32-3.29 code = 731-0) MONO x10^3 (test 0.49 10*3/uL 0.33-0.92 code = 742-7) EOS x10^3 (test 0.10 10*3/uL 0.03-0.39 code = 711-2) BASO x10^3 (test 0.04 10*3/uL 0.01-0.07 code = 704-7) [facility]. METABOLIC PANEL (27738)2020-02-12 11:29:00 Test Item Value Reference Range Interpretation Comments NA (test code = 137 mmol/L 135-145 7808425771) K (test code = 3.9 mmol/L 3.5-5 0078384474) CL (test code = 104 mmol/L 98-108 0603401037) CO2 TOTAL (test code = 22 mmol/L 23-31 L 4403145202) AGAP (test code = 2-16 5128182370) BUN (test code = 6 mg/dL 7-23 L 9330979762) GLUCOSE (test code = 163 mg/dL 70-110 H 9950534393) CREATININE (test code = 0.57 mg/dL 0.5-1.04 5824658246) TOTAL BILI (test code = 0.4 mg/dL 0.1-1.5 5244044514) CALCIUM (test code = 9.3 mg/dL 8.6-10.6 0604630434) T PROTEIN (test code = 7.3 g/dL 6.3-8.2 9526308713) ALBUMIN (test code = 4.2 g/dL 3.5-5 3054683818) ALK PHOS (test code = 72 U/L 34-122 7108125193) ALTv (test code = 10 U/L 5-35 1742-6) AST(SGOT) (test code = 20 U/L 13-40 6970123268) eGFR Calculation mL/min/1.73m2 (Non-) (test code = 6501622014) eGFR Calculation mL/min/1.73m2 () (test code = 2582924873) TERESA (test code = TERESA) Association of [...] tests). Lab Interpretation Abnormal (test code = 05005-8) [facility] WITH [id number] 11:08:00 Test Item Value Reference Range Interpretation [...] RDW-SD (test code = 41.2 fL 39-49.9 94075-9) RDW-CV (test code = 12.6 % 12-15.5 788-0) PLT (test code = See_Comment [Automated 777-3) message] The sy stem which generated this result transmitted reference range : 166 - 358 10*3/ ?L. The reference r zac was not used to interpret this result as normal/abnormal . MPV (test code = 12.0 fL 9.5-12.9 86059-9) NRBC/100 WBC (test See_Comment [Automat ed code = 5941858310) message] The system which generated this result transmitted reference range : 0.0 - 10.0 /100 WBCs. The refer ence range was not u sed to interpret th is result as normal/abnormal . NRBC x10^3 (test code <0.01 See_Comment [Auto mated = 6846307744) message] The s ystem which generated this result transmitted reference range : 10*3/?L. The reference range was not used to interpret this result as normal/abnormal . GRAN MAT (NEUT) % 78.7 % (test code = 770-8) IMM GRAN % (test code 0.30 % = 8719858609) LYMPH % (test code = 15.6 % 736-9) MONO % (test code = 5.0 % 5905-5) EOS % (test code = 0.1 % 713-8) BASO % (test code = 0.3 % 706-2) GRAN MAT x10^3(ANC) 8.05 10*3/uL 1.88-7.09 H (test code = 3486159795) IMM GRAN x10^3 (test 0.03 10*3/uL 0-0.06 code = 5654288062) LYMPH x10^3 (test code 1.60 10*3/uL 1.32-3.29 = 731-0) MONO x10^3 (test code 0.51 10*3/uL 0.33-0.92 = 742-7) EOS x10^3 (test code = <0.03 0.03-0.39 L 711-2) BASO x10^3 (test code 0.03 10*3/uL 0.01-0.07 = 704-7) Lab Interpretation Abnormal (test code = 96577-6) [facility] HospitalLactic Acid Whole [id number] 01:55:00 Test Item Value Reference Range Interpretation Comments LACTIC ACID (test code = 2.20 mmol/L 0.5-2.2 2433973334) Lab Interpretation (test code = Normal 12779-6) [facility] HospitalMAGNESIUM2020-05-03 01:20:00 Test Item Value Reference Range Interpretation Comments MAGNESIUM (test code = 7483204230) 1.9 mg/dL 1.7-2.4 Lab Interpretation (test code = Normal 17138-0) [facility] HospitalPHOSPHORUS2020-05-03 01:20:00 Test Item Value Reference Range Interpretation Comments PHOSPHORUS (test code = 6644757837) 2.1 mg/dL 2.5-5 L Lab Interpretation (test code = Abnormal 86526-8) [facility]FREE [id number] 23:16:00 Test Item Value Reference Range Interpretation Comments FREE T4 (test code = 9257541875) 1.56 ng/dL 0.78-2.2 Lab Interpretation (test code = Normal 08252-0) [facility] HospitalACETAMINOPHEN2020-05-02 23:01:00 Test Item Value Reference Range Interpretation Comments ACETAMINOP (test code = <10.0 10-30 L 1920120863) TERESA (test code = TERESA) Toxic: Greater than 200 ug/mL @ 4 hour post ingestion or greater than 50 ug/mL @ 12 hour post ingestion Lab Interpretation (test Abnormal code = 24815-2) [facility] HospitalSALICYLATE2020-05-02 23:01:00 Test Item Value Reference Range Interpretation Comments SALICYLATE (test code <10 mg/L = 1154514883) TERESA (test code = TERESA) Therapeutic Range: ? Analgesic and Antipyretic Use ? 20-100 mg/L ? ? Anti-Inflammatory Use ? 100-250 mg/L Toxic Range: ? Greater than 300 mg/L [facility] HospitalTHYROID STIMULATING [id number] 22:48:00 Test Item Value Reference Range Interpretation Comments TSH (test code = See_Comment [Automated message] 8738481741) The system [employer] generated this result transmitted ref erence range: 0.45 - 4 .70 mIU/L. The refe rence range was not u sed to interpret this result as normal/abnor mal. Lab Interpretation (test Normal code = 32381-4) [facility]FREE [id number] 22:35:00 Test Item Value Reference Range Interpretation Comments FREE T3 (test code = 2247703109) 3.32 pg/mL 2.77-5.27 Lab Interpretation (test code = Normal 99645-4) [facility] HospitalTroponin [id number] 22:30:00 Test Item Value Reference Range Interpretation Comments TROPONIN I (test <0.012 See_Comment [Automated code = 0735047612) message] The system which generated this result [...] ? Lab Interpretation Normal (test code = 32970-8) [facility] HospitalN-TERMINAL [id number] 22:26:00 Test Item Value Reference Range Interpretation Comments NT-proBNP (test code 61 pg/mL See_Comment [Autom ated = 5056769499) message] The system which generated this result transmitted reference range : <=125. The reference range was not used to interpret this result as normal/abnormal . TERESA (test code = TERESA) Biotin has been reported to cause a negative bias, interpret results relative to patient's use of biotin. Lab Interpretation Normal (test code = 46512-8) [facility] HospitalCORONAVIRUS COVID-19 [id number] 22:23:00 Test Item Value Reference Range Interpretation Comments SARS-CoV-2 (test code = Not Detected Not Detected 78659-2) TERESA (test code = TERESA) ID NOW COVID-19 Assay is an isothermal nucleic acid amplification test intended for the qualitative detection of nucleic acid from SARS-CoV-2 viral RNA in nasopharyngeal ([employer]) specimens. It is used under Emergency Use [...] indicated. Lab Interpretation Normal (test code = 95540-6) [facility] - DRUG SCREEN [id number] 22:20:00 Test Item Value Reference Range Interpretation Comments BENZO U (test code = Negative Negative 8773212575) JAYJAY U (test code = Negative Negative 8187764786) AMPHET (test code = Negative Negative 8032921954) THC (test code = Negative Negative 9822834531) METHADONE (test code = Negative Negative 9493903016) Meth U (test code = Negative Negative 5933417539) OPIATES (test code = Negative Negative 8178187080) Cocaine Metabolite (test Negative Negative code = 7559560033) PROPOXY (test code = Negative Negative 1728129071) Tric U (test code = Negative Negative 5483237553) PCP (test code = Negative Negative 5900047511) OXYCOD (test code = Negative Negative 2335533215) TERESA (test code = TERESA) Urine Drug [...] testing). Lab Interpretation (test Normal code = 08927-3) [facility] Metabolic Panel (NA, K, CL, CO2, GLUCOSE, BUN, CREATININE, CA)2020-02-11 22:18:00 Test Item Value Reference Range Interpretation Comments NA (test code = 143 mmol/L 135-145 0261434566) K (test code = 2.6 mmol/L 3.5-5 LL 6946414072) CL (test code = 103 mmol/L 98-108 3794898551) CO2 TOTAL (test code = 27 mmol/L 23-31 6873654942) AGAP (test code = 2-16 7088503420) BUN (test code = 17 mg/dL 7-23 4196422509) GLUCOSE (test code = 215 mg/dL 70-110 H 4207088898) CREATININE (test code = 0.87 mg/dL 0.5-1.04 3564104248) CALCIUM (test code = 10.2 mg/dL 8.6-10.6 6793938466) eGFR Calculation mL/min/1.73m2 (Non-) (test code = 8215424202) eGFR Calculation mL/min/1.73m2 () (test code = 2536443686) TERESA (test code = TERESA) Association of [...] tests). Lab Interpretation Abnormal (test code = 74142-3) [facility] HospitalHepatic Function Panel (ALB, T.PRO, BILI T, BU/BC, ALT, AST, ALK PHOS)2020-02-11 22:18:00 Test Item Value Reference Range Interpretation Comments TOTAL BILI (test code = 8052770751) 0.5 mg/dL 0.1-1.1 BILI UNCON (test code = 3694451944) 0.6 mg/dL 0.1-1.1 BILI CONJ (test code = 9099150818) 0.0 mg/dL 0-0.3 T PROTEIN (test code = 0897397632) 8.8 g/dL 6.3-8.2 H ALBUMIN (test code = 9270496566) 5.2 g/dL 3.5-5 H ALK PHOS (test code = 2450286138) 97 U/L 34-122 ALTv (test code = 1742-6) 12 U/L 5-35 AST(SGOT) (test code = 5121875538) 26 U/L 13-40 Lab Interpretation (test code = Abnormal 78639-7) [facility] HospitalPREGNANCY TEST, [id number] 22:18:00 Test Item Value Reference Range Interpretation Comments PREG SERUM (test code Negative = 6325118686) TERESA (test code = TERESA) Less than 10 IU/L. ?If low titer or ectopic is suspected, resubmit specimen in 48-72 hours. [facility] HospitalLipase [id number] 22:17:00 Test Item Value Reference Range Interpretation Comments LIPASE (test code = 3473195402) 69 U/L 0-220 Lab Interpretation (test code = Normal 11563-8) [facility] HospitalCREATINE [id number] 22:17:00 Test Item Value Reference Range Interpretation Comments CK (test code = 6751742582) 75 U/L 33-194 Lab Interpretation (test code = Normal 57533-1) [facility] HospitalProthrombin Time (PT) / [id number] 22:16:00 Test Item Value Reference Range Interpretation [...] tions. Lab Interpretation (test Normal code = 14640-8) [facility] HospitalaPTT2020-05-02 22:14:00 Test Item Value Reference Range Interpretation Comments APTT Patient (test See_Comment [Automat ed code = 3173-2) message] The system which generated this result transmitted reference range : 23 - 38 Seconds . The reference range was not used to interpr et this result as normal/abnormal . TERESA (test code = TERESA) The [facility] patient population mean normal value for aPTT is 30 seconds. Lab Interpretation Normal (test code = 62505-3) [facility] HospitalUrinalysis2020-05-02 22:13:00 Test Item Value Reference Range Interpretation Comments APPEARANCE (test code = Hazy Clear A 4463134824) COLOR (test code = Yellow Yellow 4340828244) PH (test code = 4.8-8.0 1191621939) SP GRAVITY (test code = 1.003-1.030 3396756005) GLU U QUAL (test code = Normal Normal 7301151073) BLOOD (test code = Negative Negative 9029561923) KETONES (test code = 5 mg/dL Negative A 7075616125) PROTEIN (test code = 30 mg/dL Negative A 2887-8) UROBILIN (test code = 4.0 mg/dL Normal A 8364552380) BILIRUBIN (test code = Negative Negative 9502878018) NITRITE (test code = Positive Negative A 8929536238) LEUK HELADIO (test code = 75/uL Negative A 3629134672) RBC/HPF (test code = See_Comment H [Autom ated message] 1370620685) The system ic h generated this result transmit jeovanny reference range : 0 - 3 HPF. The refe rence range was not u sed to interpret th is result as normal/abnormal . WBC/HPF (test code = See_Comment H [Autom ated message] 4137425430) The system [employer] generated this result transmit jeovanny reference range : 0 - 5 HPF. The refe rence range was not u sed to interpret th is result as normal/abnormal . BACTERIA (test code = Many Negative A 0642502478) MUCOUS (test code = Moderate Negative LPF A 6582438861) SQ EPITH (test code = HPF 6771656232) HYAL CAST (test code = See_Comment H [Aut omated message] 5700314985) The system [employer] generated this result transmit jeovanny reference range : <=2 LPF. The refere nce range was not u sed to interpret th is result as normal/abnormal . Lab Interpretation (test Abnormal code = 78048-8) [facility] WITH [id number] 22:06:00 Test Item Value Reference Range Interpretation Comments WBC (test code = See_Comment [Automated message] 3890-2) The system [employer] generated this result transmitted ref erence range: 4.30 - 1 1.10 10*3/?L. The re ference range was not u sed to interpret this result as normal/abnor mal. RBC (test code = See_Comment [Automated message] 559-8) The system [employer] generated this result transmitted ref erence range: [...] RDW-SD (test code 41.5 fL 39-49.9 = 60220-8) RDW-CV (test code 12.8 % 12-15.5 = 788-0) PLT (test code = See_Comment [Automated message] 267-3) The system whic h generated this result transmitted ref erence range: 166 - 35 8 10*3/?L. The re ference range was not u sed to interpret this result as normal/abnor mal. MPV (test code = 11.4 fL 9.5-12.9 80177-2) NRBC/100 WBC (test See_Comment [Automat ed message] code = 8051042532) The syste m which generated this result transmitted ref erence range: 0.0 - 10 .0 /100 WBCs. The refer ence range was not u sed to interpret this result as normal/abnor mal. NRBC x10^3 (test <0.01 See_Comment [Automated message] code = 0776385636) The syste m which generated this result transmitted ref erence range: 10*3/?L. The reference range was not used to interpr et this result as normal/abnormal . GRAN MAT (NEUT) % 65.1 % (test code = 770-8) IMM GRAN % (test 0.30 % code = 7906953597) LYMPH % (test code 27.3 % = 736-9) MONO % (test code 6.3 % = 5905-5) EOS % (test code = 0.6 % 713-8) BASO % (test code 0.4 % = 706-2) GRAN MAT 5.88 10*3/uL 1.88-7.09 x10^3(ANC) (test code = 2383685218) IMM GRAN x10^3 0.03 10*3/uL 0-0.06 (test code = 3084508958) LYMPH x10^3 (test 2.47 10*3/uL 1.32-3.29 code = 731-0) MONO x10^3 (test 0.57 10*3/uL 0.33-0.92 code = 742-7) EOS x10^3 (test 0.05 10*3/uL 0.03-0.39 code = 711-2) BASO x10^3 (test 0.04 10*3/uL 0.01-0.07 code = 704-7) [facility] Whole [id number] 22:04:00 Test Item Value Reference Range Interpretation Comments LACTIC ACID (test code = 3.56 mmol/L 0.3-2.6 H 3434881103) Lab Interpretation (test code = Abnormal 36501-0) [facility] HospitalAC[facility] VENOUS BLOOD [id number] 22:00:00 Test Item Value Reference Range Interpretation Comments PH (test code = 7.32-7.42 H 4327416743) PCO2 DAILY (test code = See_Comment L [Auto mated message] 2455668762) The system [employer] generated this result transmitted ref erence range: 41 - 51 mmHg. The reference r zac was not used to interpret this result as normal/abnor mal. PO2 DAILY (test code = See_Comment H [Autom ated message] 4704419461) The system [employer] generated this result transmitted ref erence range: 25 - 40 mmHg. The reference r zac was not used to interpret this result as normal/abnor mal. HCO3 DAILY (test code = See_Comment [Auto mated message] 9700612312) The system [employer] generated this result transmitted ref erence range: 24 - 28 mEq/L. The reference r zac was not used to interpret this result as normal/abnor mal. AC VBE(BEAKER) (test mEq/L code = 1149446501) Lab Interpretation (test Abnormal code = 70173-9) [facility] HospitalCritical [id number] 21:55:26eJanie Hallman MD ? ? 02/11/2020 ?4:55 PMCritical [...] re-evaluation of patient's condition and examination of [facility]UnBrown[facility] CenterCB WITH DIFFERENTIAL 2019-11-09 04:51:00 Test [...] RDW-SD (test code = 42.5 fL 39-49.9 46246-0) RDW-CV (test code = 13.2 % 12-15.5 788-0) PLT (test code = See_Comment [Automated 777-3) message] The sy stem which generated this result transmitted reference range : 166 - 358 10*3/ ?L. The reference r zac was not used to interpret this result as normal/abnormal . MPV (test code = 12.2 fL 9.5-12.9 24447-3) NRBC/100 WBC (test See_Comment [Automat ed code = 0159434074) message] The system which generated this result transmitted reference range : 0.0 - 10.0 /100 WBCs. The refer ence range was not u sed to interpret th is result as normal/abnormal . NRBC x10^3 (test code <0.01 See_Comment [Auto mated = 9702616454) message] The s ystem which generated this result transmitted reference range : 10*3/?L. The reference range was not used to interpret this result as normal/abnormal . GRAN MAT (NEUT) % 55.1 % (test code = 770-8) IMM GRAN % (test code 0.80 % = 5672886171) LYMPH % (test code = 36.2 % 736-9) MONO % (test code = 5.5 % 5905-5) EOS % (test code = 1.6 % 713-8) BASO % (test code = 0.8 % 706-2) GRAN MAT x10^3(ANC) 5.74 10*3/uL 1.88-7.09 (test code = 1273958354) IMM GRAN x10^3 (test 0.08 10*3/uL 0-0.06 H code = 4527302596) LYMPH x10^3 (test code 3.76 10*3/uL 1.32-3.29 H = 731-0) MONO x10^3 (test code 0.57 10*3/uL 0.33-0.92 = 742-7) EOS x10^3 (test code = 0.17 10*3/uL 0.03-0.39 711-2) BASO x10^3 (test code 0.08 10*3/uL 0.01-0.07 H = 704-7) Lab Interpretation Abnormal (test code = 77460-8) [facility] METABOLIC PANEL (NA, K, CL, CO2, GLUCOSE, BUN, CREATININE, CA)2019-11-09 04:33:00 Test Item Value Reference Range Interpretation Comments NA (test code = 139 mmol/L 135-145 6571093896) K (test code = 4.4 mmol/L 3.5-5 9456354985) CL (test code = 102 mmol/L 98-108 8567008265) CO2 TOTAL (test code = 27 mmol/L 23-31 5325878805) AGAP (test code = 2-16 3322724865) BUN (test code = 24 mg/dL 7-23 H 0489203218) GLUCOSE (test code = 106 mg/dL 70-110 6081740365) CREATININE (test code = 0.88 mg/dL 0.5-1.04 0977828474) CALCIUM (test code = 10.0 mg/dL 8.6-10.6 9171306467) eGFR Calculation mL/min/1.73m2 (Non-) (test code = 3950227466) eGFR Calculation mL/min/1.73m2 () (test code = 2082000956) TERESA (test code = TERESA) Association of [...] tests). Lab Interpretation Abnormal (test code = 11653-3) [facility] HospitalPREGNANCY TEST, [id number] 04:31:00 Test Item Value Reference Range Interpretation Comments PREG SERUM (test code Negative = 0084774678) TERESA (test code = TERESA) Less than 10 IU/L. ?If low titer or ectopic is suspected, resubmit specimen in 48-72 hours. [facility]"
[2022-05-27 13:26] LABS: Absolute Lymphocytes (CBC) 2.4 K/uL (0.7-4.9); Hematocrit 40.3 % (36.0-45.0); Lymphocytes % 30.2 % (15.3-44.8); MCV 86.7 fL (80-100); MPV 8.7 fL (7.6-11.3); RBC Red Blood Cell Count 4.65 M/uL (3.86-4.86)
[2022-05-27 13:34] LABS: Potassium 3.9 mmol/L (3.5-5.1); Troponin High Sensitivity 10.5 pg/mL (<58.9)
--- NOTE | 2022-05-27 13:35 | RAD REPORT ---
EXAM DESCRIPTION: Jj Single View05/27/2022 1:27 pm CLINICAL HISTORY: Chest pain COMPARISON: none FINDINGS: The lungs appear clear of acute infiltrate. The heart is probably borderline enlarged IMPRESSION: No acute abnormalities displayed
[2022-05-27] MEDS ORDERED: cloNIDine HCL 0.1 MG TAB ONE (14:43)
--- NOTE | 2022-05-27 14:51 | ER ---
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 BP 165/110, hx of HTN, does not take her metoprolol on a regular basis. Reports dizziness and pain resolved [employer], took Metoprolol 50 mg [employer]. Coronavirus screen: At this time, the client does not indicate any symptoms associated with coronavirus-19. Ebola Screen: No symptoms or risks identified at this time. Initial Sepsis Screen: Does the patient meet any 2 criteria? No. Patient's initial sepsis screen is negative. Does the patient have a suspected source of infection? No. Patient's initial sepsis screen is negative. Risk Assessment: Do you want to hurt yourself or someone else? Patient reports no desire to harm self or others. Onset of symptoms was May 27, 2022. 12:42 Method Of Arrival: Ambulatory hb 12:42 Acuity: MARYSOL 3 hb Triage Assessment: 14:35 General: Appears in no apparent distress. Behavior is calm, cooperative. Pain: Denies iw pain. Cardiovascular: Patient's skin is warm and dry. Historical: - Allergies: 12:46 No Known Allergies; hb - Home Meds: 12:46 metoprolol tartrate 50 mg Oral tab 1 tab [Active]; hb - PMHx: 12:46 Hypertensive disorder; hb - Immunization history:: Adult Immunizations up to date. Screenin:31 Abuse screen: Denies threats or abuse. Denies injuries from another. Nutritional iw screening: No deficits noted. Tuberculosis screening: No symptoms or risk factors identified. Fall Risk IV access (20 points). Assessment: 14:31 Reassessment: Patient appears in no apparent distress at this time. Patient and/or iw family updated on plan of care and expected duration. Pain level reassessed. Patient is alert, oriented x 3, equal unlabored respirations, skin warm/dry/pink. 14:41 Reassessment: pt does not want BP med, states she is feeling fine and does not want to iw make her BP too low. Vital Signs: 12:42 BP 158 / 115; Pulse 79; Resp 20; Temp 97.9; Pulse Ox 99% on R/A; Pain 0/10; hb 14:23 BP 162 / 115; Pulse 74; Resp 16; Temp 98.1(O); Pulse Ox 98% on R/A; Pain 0/10; em1 14:38 BP 144 / 112; Pulse 74; Resp 16; iw ED Course: 12:34 Patient arrived in ED. am2 12:40 Amarilis Gabriel FNP-C is PHCP. kb 12:40 Baron Morales DO is Attending Physician. kb 12:46 Triage completed. hb 12:46 Arm band placed on. hb 13:00 Patient has correct armband on for positive identification. Pulse ox on. NIBP on. iw 13:29 XRAY Chest (1 view) In Process Unspecified. EDMS 14:16 Nelly Arevalo, RN is Primary Nurse. iw 14:42 No provider procedures requiring assistance completed. Patient maintains SpO2 iw saturation greater than 95% on room air. 15:27 IV discontinued, intact, bleeding controlled, No redness/swelling at site. Pressure iw dressing applied. Administered Medications: 14:41 Not Given (Patient Refused): cloNIDine 0.1 mg PO once iw Medication: 14:35 VIS not applicable for this client. iw Outcome: 14:51 Discharge ordered by MD. kb 15:28 Discharged to home ambulatory. iw 15:28 Condition: good 15:28 Discharge instructions given to patient, Instructed on discharge instructions, follow up and referral plans. Demonstrated understanding of instructions, follow-up care. 15:29 Patient left the ED. iw Signatures: Dispatcher [employer] EDMS Amarilis Gabriel FNP-C FNP-Nelly Nuñez, RN MICHAEL iw Vikram Loza em1 Prisca Fajardo RN RN hb Moreno, Amanda am2
--- NOTE | 2022-05-27 14:51 | EDPHYS ---
Physician Documentation [facility] Name: Linda Urena Age: 46 yrs Sex: Female : 1975 Arrival Date: 05/27/2022 Time: 12:34 Bed 10 Private MD: ED Physician Baron Morales HPI: 05/27 14:49 This 46 yrs old Female presents to ER via Ambulatory with complaints of Chest Pain, kb Blood Pressure Problem. 14:49 The patient has elevated blood pressure and discovered this work. Onset: The kb symptoms/episode began/occurred today. Associated signs and symptoms: Pertinent positives: chest pain, Pertinent negatives: dizziness, dyspnea, headache, lightheadedness, nausea, visual changes, vomiting, weakness. Severity of symptoms: At its worst the blood pressure was 160 mm Hg. The patient has experienced similar episodes in the past, chronically. The patient has not recently seen a physician. Pt reports she had one episode of chest pain this morning that went away. States she wasn't feeling well at work so she checked her BP and it was high. Coworkers recommended she come be evaluated in the ED. Pt states she is supposed to take metoprolol 50mg BID, but only takes it as needed because it makes her drowsy. . Historical: - Allergies: 12:46 No Known Allergies; hb - Home Meds: 12:46 metoprolol tartrate 50 mg Oral tab 1 tab [Active]; hb - PMHx: 12:46 Hypertensive disorder; hb - Immunization history:: Adult Immunizations up to date. ROS: 14:45 Constitutional: Negative for fever, chills, and weight loss. kb 14:45 Cardiovascular: Positive for chest pain, Negative for edema, orthopnea, palpitations, paroxysmal nocturnal dyspnea. 14:45 All other systems are negative. Exam: 12:54 Constitutional: This is a well developed, well nourished patient who is awake, alert, kb and in no acute distress. Head/Face: Normocephalic, atraumatic. ENT: Moist Mucous membranes Cardiovascular: Regular rate and rhythm with a normal S1 and S2. No gallops, murmurs, or rubs. No pulse deficits. Respiratory: Respirations even and unlabored. No increased work of breathing. Talking in full sentences Abdomen/GI: Soft, non-tender. No distention Skin: Warm, dry with normal turgor. Normal color. MS/ Extremity: Pulses equal, no cyanosis. Neurovascular intact. Full, normal range of motion. Neuro: Awake and alert, GCS 15, oriented to person, place, time, and situation. Moves all extremities. Normal gait. Psych: Awake, alert, with orientation to person, place and time. Behavior, mood, and affect are within normal limits. 12:54 ECG was reviewed by the Attending Physician. Vital Signs: 12:42 BP 158 / 115; Pulse 79; Resp 20; Temp 97.9; Pulse Ox 99% on R/A; Pain 0/10; hb 14:23 BP 162 / 115; Pulse 74; Resp 16; Temp 98.1(O); Pulse Ox 98% on R/A; Pain 0/10; em1 14:38 BP 144 / 112; Pulse 74; Resp 16; iw MDM: 12:47 Patient medically screened. kb 14:46 Data reviewed: vital signs, nurses notes. Data interpreted: Pulse oximetry: on room air kb is 98 %. Interpretation: normal. Counseling: I had a detailed discussion with the patient and/or guardian regarding: the historical points, exam findings, and any diagnostic results supporting the discharge/admit diagnosis, lab results, radiology results, the need for outpatient follow up, a family practitioner, to return to the emergency department if symptoms worsen or persist or if there are any questions or concerns that arise at home. ED course: Pt is asymptomatic of bp. Educated to start taking her prescribed metoprolol for BP management and to follow up with PCP. Pt does not want any medication to bring bp down right now. . 05/27 12:47 Order name: Basic Metabolic Panel; Complete Time: 13:53 kb 05/27 12:47 Order name: CBC with Diff; Complete Time: 13:32 kb 05/27 12:47 Order name: NT PRO-BNP; Complete Time: 13:53 kb 05/27 12:47 Order name: Troponin HS; Complete Time: 13:53 kb 05/27 12:47 Order name: XRAY Chest (1 view); Complete Time: 13:53 kb 05/27 12:47 Order name: EKG; Complete Time: 12:49 kb 05/27 12:47 Order name: Cardiac monitoring; Complete Time: 14:23 kb 05/27 12:47 Order name: EKG - Nurse/Tech; Complete Time: 12:55 kb 05/27 12:47 Order name: IV Saline Lock; Complete Time: 14:22 kb 05/27 12:47 Order name: Labs collected and sent; Complete Time: 14:23 kb 05/27 12:47 Order name: O2 Per Protocol; Complete Time: 14:23 kb 05/27 12:47 Order name: O2 Sat Monitoring; Complete Time: 14:23 kb 05/27 13:53 Order name: Vital Signs; Complete Time: 14:22 kb EC:54 Rate is 77 beats/min. Rhythm is regular. QRS [place] is Normal. MA interval is normal at kb 138 msec. QRS interval is normal at 84 msec. QT interval is normal at 432 msec. Administered Medications: 14:41 Not Given (Patient Refused): cloNIDine 0.1 mg PO once iw Disposition: 21:26 Co-signature as Attending Physician, Baron Morales DO I agree with the assessment and ms3 plan of care. Disposition Summary: 05/27/22 14:51 Discharge Ordered Location: Home kb Condition: Stable kb Diagnosis - Essential (primary) hypertension kb Followup: kb - With: Emergency Department - When: As needed - Reason: Worsening of condition Followup: kb - With: Private Physician - When: 2 - 3 days - Reason: Recheck today's complaints, Continuance of care, Re-evaluation by your physician Discharge Instructions: - Discharge Summary Sheet kb - Hypertension, Adult, [id number] kb Forms: - Medication Reconciliation Form kb - Thank You Letter kb - Antibiotic Education kb - Prescription Opioid Use kb Signatures: Dispatcher [employer] Amarilis Rodriguez, ANTHONY VARGAS-Prisca Finn, RN RN Baron Ortiz DO DO ms3 Nelly Arevalo RN iw
[2022-05-27 15:48] VITALS: TEMP 98.1; O2SAT 98
[2022-05-27 15:50] VITALS: BP 144/112
== END 2022-05-27 15:29 | disposition home or self-care (01) ==
LOC: ER 12:33
DX: I10 Essential (primary) hypertension (principal)
CPT/HCPCS: 36415; 71045; 80048; 83880; 84484; 85025

== ENCOUNTER 2022-09-22 09:48 | Emergency (ER) | payer SELFPAY ==
--- OUTSIDE RECORDS SUMMARY | 2022-09-22 09:53 | XMS REPORT | Continuity of Care Document ---
:1975 Author Organization [facility] t Address [address] [place] [address] Care Team Providers Name Role Phone Pcp, Patient Does Not Have A Primary Care Physician [id number] LEE ANN MILLS Attending Clinician Unavailable Lee Ann Hernandez Attending Clinician UNKNOWN, ATTENDING Attending Clinician Unavailable Katheryn Shukla Attending Clinician Rafy Campbell Attending Clinician Doctor Unassigned, [place] Attending Clinician Unavailable Shelby Ba Attending Clinician [...] Intentiona Disease Active U nivers l l 5 ity of [...] Date Quantity Comments Source Exposure to Yes [facility] SARS-CoV-2 (event) Medica l Branch History [facility] 2020-02-12 2020-02-12 4 [facility] Financial 00:00:00 00:00:00 Medical Branch History [facility] Food 2020-02-12 2020-02-12 2 [facility] ity [facility] Worry 00:00:00 00:00:00 Medical Branch History [facility] Food 2020-02-12 2020-02-12 1 [facility] ity [facility] Scarcity 00:00:00 00:00:00 Medical Branch History [facility] 2020-02-12 2020-02-12 2 [facility] Transport Med 00:00:00 00:00:00 Medical Bra nch History [facility] 2020-02-12 2020-02-12 2 [facility] Transport Non-Med 00:00:00 00:00:00 Medical Branch Tobacco use and 2020-02-11 2020-02-11 Never used [facility] exposure 00:00:00 00:00:00 Medical Branch Education 2020-02-11 2020-02-11 13 [facility] 00:00:00 00:00:00 Medical Branch Sex Ass[birth year] At [birth year] [facility] 00:00:00 00:00:00 Medical Branch Smoking Status Start Date Stop Date Source Never smoker [facility] xa Medical Branch Unknown if ever smoked [facility] Medical Branch Medications Ordered Filled Start [...] mg 11/05/21 at 1345, ALFREDITO proMETHazin Yes [id number] 25mg Take 1 Univers e 25 mg 1-25 tablet by ity of tablet 00:00: mouth [place] 00 every 6 Medical (six) Branch hours as needed for Nausea and Vomiting (N/V) or N/V unresponsi ve to Ondansetro n. traMADoL No 50mg 50 mg, Univer s (ULTRAM) 2-05 02-04 Oral, ity of tablet 50 00:00: 23:02 ONCE, 1 [place] mg 00 :00 dose, [facility] Medical 11/15/20 at Branch 1800, Routine ondansetron 2020- No 4mg 4 mg, Slow Univers (ZOFRAN 2-04 02-04 IV Push, ity of (PF)) 21:15: 20:15 ONCE, 1 [place] injection 4 00 :00 dose, [facility] ical mg 11/15/20 at Branch 1515, ALFREDITO traMADoL 50 Yes [id number] 50mg Take 1 Univ ers mg tablet 2-04 tablet by ity o f 00:00: mouth [place] 00 every 6 Medical (six) Branch hours as needed for Pain (scale 7-10) for up to 14 doses. Indication s: acute pain ondansetron Yes [id number] 4mg Take 1 Univers (ZOFRAN 2-04 tablet by ity of ODT) 4 mg 00:00: mouth [place] disintegrat 00 every 8 Medic al ing tablet (eight) Branch hours as needed for Nausea and Vomiting (N/V). esomeprazol Yes [id number] 20mg Take 20 mg Univers e (NEXIUM) [...] doses. Indication s: acute pain ondansetron Yes [id number] 4mg Take 1 Univers (ZOFRAN 2-04 tablet by ity of ODT) 4 mg 00:00: mouth [place] disintegrat 00 every 8 Medic al ing tablet (eight) Branch hours as needed for Nausea and Vomiting (N/V). esomeprazol Yes [id number] 20mg Take 20 mg Univers e (NEXIUM) [...] Wed Branch 10/10/20 at 1645, ALFREDITO
[facility] Rest[facility] medication : SAGAR MOORE methocarbam 2019-10 Yes [id number] 750mg Take 1 Univers oL 2-30 tablet by ity of (ROBAXIN-75 00:00: mouth 4 Good as 0) 750 mg 00 (four) Medical tablet times Branch daily as needed for Pain (scale 7-10). ibuprofen 2019-10 Yes [id number] 800mg Take 1 Univers 800 mg 2-30 tablet by ity of tablet 00:00: mouth [place] 00 every 8 Medical (eight) Branch hours as needed for Pain (scale 4-6). methocarbam 2019-10 Yes [id number] 750mg Take 1 Univers oL 2-30 tablet by ity of (ROBAXIN-75 00:00: mouth 4 Good as 0) 750 mg 00 (four) Medical tablet times Branch daily as needed for Pain (scale 7-10). ibuprofen 2019-10 Yes [id number] 800mg Take 1 Univers 800 mg 2-30 tablet by ity of tablet 00:00: mouth [place] 00 every 8 Medical (eight) Branch hours as needed for Pain (scale 4-6). methocarbam 2019-10 Yes [id number] 750mg Take 1 Univers oL 2-30 tablet by ity of (ROBAXIN-75 00:00: mouth 4 Good as 0) 750 mg 00 (four) Medical tablet times Branch daily as needed for Pain (scale 7-10). ibuprofen 2019-10 Yes [id number] 800mg Take 1 Univers 800 mg 2-30 tablet by ity of tablet 00:00: mouth [place] 00 every 8 Medical (eight) Branch hours as needed for Pain (scale 4-6). metoprolol 2020- No [id number] 50mg Take 1 Univers tartrate 50 5- 06-04 tablet by it y of mg tablet 00:00: 04:59 mouth 2 [place] 00 :00 (two) Medical times Branch daily for 30 days. metoprolol 2020- No [id number] 50mg Take 1 Univers tartrate 50 -04 06-04 tablet by it y of mg tablet 00:00: 04:59 mouth 2 [place] 00 :00 (two) Medical times Branch daily for 30 days. cefdinir 2020- No 300mg 300 mg, Univ ers (OMNICEF) 5- 05-06 Oral, ity of capsule 300 15:00: [...] [place] 00 First dose Medical on [place] Branch 02/12/20 at 0900, Until Discontinu ed, Routine cefTRIAXone 2019-0 2020- No 1000mg 1,000 mg, Univers (ROCEPHIN) 02-11-03 IV ity of 1,000 mg in 14:00: 14:47 [place], [place] NaCl 0.9% 00 :17 DAILY, Medical (NS) 50 mL First dose Bra nch MINI-BAG on [place] 02/12/20 at 0900, Until Discontinu ed, 50 mL
Reas on for Anti-Infec tive: Documented Infection< br>Documen jeovanny Infection Site: Urine
D uration of Therapy: Other (see Comments) LORazepam 2019-0 Yes 1mg 1 mg, Slow Un quintin (ATIVAN) 503 IV Push, ity of injection 1 06:10: Q4HPRN, Good as mg 26 Starting Medical [place] 02/12/20 Branch at 0110, Until Discontinu ed, STAT, Agitation D5W 0.45% 2019-0 Yes IV Univers NaCl 02-11 Infusion, ity of (1/2NS) 1 L 02:30: at 125 [place] + KCL 20 00 mL/hr, Medical mEq CONTINUOUS Branch , Starting 02/11/20 at 2130, Until Discontinu ed, Routine KCL 2019-0 2020- No 10meq 10 mEq, IV Unive rs (POTASSIUM 02-11 Piggyback, it y of CHLORIDE) 02:00: 03:30 [...] 25 mL, Univ ers % in water 503 Slow IV ity of (D50W) 01:09: Push, PRN, [place] injection 29 Starting Medica l 25 mL 02/11/20 Branch at 2008, Until Discontinu ed, ALFREDITO, Blood Glucose < or = 70 mg/dL and patient is unable to swallow or has mental status changes. NaCl 0.9% 0 2019- No 1000mL at 999 Uni vers (NS) [...] :00 dose, Sat Medical 02/11/20 at Branch 1914, STAT LORazepam 2020-0 Yes [id number] .5mg Take 1 Un quintin 0.5 mg 5-03 tablet by ity of tablet 00:00: mouth (two) Medical times Branch daily as needed for Anxiety. LORazepam 2020-0 Yes [id number] .5mg Take 1 Un quintin 0.5 mg 5-03 tablet by ity of tablet 00:00: mouth (two) Medical times Branch daily as needed for Anxiety. LORazepam 2020-0 Yes [id number] .5mg Take 1 Un quintin 0.5 mg 5-03 tablet by ity of tablet 00:00: mouth (two) Medical times Branch daily as needed for Anxiety. LORazepam 2020-0 Yes [id number] .5mg Take 1 Un quintin 0.5 mg 5-03 tablet by ity of tablet 00:00: mouth (two) Medical times Branch daily as needed for Anxiety. LORazepam 2020-0 Yes [id number] .5mg Take 1 Un quintin 0.5 mg 5-03 tablet by ity of tablet 00:00: mouth (two) Medical times Branch daily as needed for Anxiety. LORazepam 2020-0 Yes [id number] .5mg Take 1 Univers 0.5 mg 5-03 tablet by ity of tablet 00:00: mouth (two) Medical times Branch daily as needed for Anxiety. LORazepam 2020-0 Yes [id number] .5mg Take 1 Un quintin 0.5 mg -03 tablet by ity of tablet 00:00: mouth 2 [place] 00 (two) Medical times Branch daily as needed for Anxiety. cefdinir 2019-2019- No [id number] 300mg Take 1 U nivers 300 mg 5-12 14-07 capsule by ity of capsule 00:00: 04:59 mouth [place] 00 :00 every 12 Medical (twelve) Branch hours for 3 days. cefdinir 2019-2019- No [id number] 300mg Take 1 U nivers 300 mg 5- 05-07 capsule by ity of capsule 00:00: 04:59 mouth [place] 00 :00 every 12 Medical (twelve) Branch hours for 3 days. cefdinir 2019-2019- No [id number] 300mg Take 1 U nivers 300 mg [...] Medic al NaCl 0.9% 02/11/20 at [facility] h (NS) 100 mL 1830, 100 piggyback mL cefTRIAXone 2019- No 1000mg 1,000 mg, Univers (ROCEPHIN) 02-10 IV ity of 1,000 mg in 23:30: 23:16 [place], [place] NaCl 0.9% 00 :00 ONCE, 1 Medical (NS) 50 mL dose, Sat [facility] MINI-BAG 02/11/20 at 1830, 50 mL
Reas on for Anti-Infec tive: Documented Infection< br>Documen jeovanny Infection Site: Urine
D uration of Therapy: Other (see Comments) LORazepam 2019- No 1mg 1 mg, Slow U nivers (ATIVAN) 02-10 IV Push, ity of injection 1 22:45: 21:50 ONCE, 1 [place] mg 00 :00 dose, Sat Medical 02/11/20 at Branch 1745, STAT ondansetron 2019-0 2020- No 4mg 4 mg, Slow Univers (ZOFRAN 02-10 IV Push, ity of (PF)) 22:45: 21:50 ONCE, 1 [place] injection 4 00 :00 dose, Sat Med ical mg 02/11/20 at Branch 1745, ALFREDITO activated 2019-0 2020- No 50g 50 g, Univer s charcoal-so 02-10 Oral, ity of rbitol 22:45: 21:40 ONCE, 1 [place] (ACTIDOSE/S 00 :00 dose, Sat Med ical ORBITAL) 25 02/11/20 at [facility] [address] gram/120 mL 1745, ALFREDITO suspension 50 g amLODIPine 2019-0 Yes [id number] 5mg Take 1 U nivers 5 mg tablet 1-28 tablet by ity of 00:00: mouth [place] 00 daily. Medical Branch amLODIPine 2019-0 Yes [id number] 5mg Take 1 U nivers 5 mg tablet 1-28 tablet by ity of 00:00: mouth [place] 00 daily. Medical Branch amLODIPine 2019-0 Yes [id number] 5mg Take 1 U nivers 5 mg tablet 1-28 tablet by ity of 00:00: mouth [place] 00 daily. Medical Branch amLODIPine 2019-0 Yes [id number] 5mg Take 1 U nivers 5 mg tablet 1-28 tablet by ity of 00:00: mouth [place] 00 daily. Medical Branch amLODIPine 2019-0 Yes [id number] 5mg Take 1 U nivers 5 mg tablet 1-28 tablet by ity of 00:00: mouth [place] 00 daily. Medical Branch amLODIPine 2019-0 Yes [id number] 5mg Take 1 U nivers 5 mg tablet 1-28 tablet by ity of 00:00: mouth [place] 00 daily. Medical Branch amLODIPine 2019-0 Yes [id number] 5mg Take 1 U nivers 5 mg tablet 1-28 tablet by ity of 00:00: mouth [place] 00 daily. Medical Branch amLODIPine 2019-0 Yes [id number] 5mg Take 1 U nivers 5 mg tablet 1-28 tablet by ity of 00:00: mouth [place] 00 daily. Medical Branch ibuprofen 2018-0 Yes [id number] 800mg Take 1 U nivers 800 mg 2-19 tablet by ity of tablet 00:00: mouth [place] 00 every 6 Medical (six) Branch hours as needed for Pain (scale 4-6). ibuprofen 2019-0 Yes [id number] 800mg Take 1 U nivers 800 mg 2-19 tablet by ity of tablet 00:00: mouth [place] 00 every 6 Medical (six) Branch hours as needed for Pain (scale 4-6). ibuprofen 2019-0 Yes [id number] 800mg Take 1 U nivers 800 mg 2-19 tablet by ity of tablet 00:00: mouth [place] 00 every 6 Medical (six) Branch hours as needed for Pain (scale 4-6). ibuprofen 2019-0 Yes [id number] 800mg Take 1 U nivers 800 mg 2-19 tablet by ity of tablet 00:00: mouth [place] 00 every 6 Medical (six) Branch hours as needed for Pain (scale 4-6). ibuprofen 2018-0 Yes [id number] 800mg Take 1 U nivers 800 mg 2-19 tablet by ity of tablet 00:00: mouth [place] 00 every 6 Medical (six) Branch hours as needed for Pain (scale 4-6). ibuprofen 2018-0 Yes [id number] 800mg Take 1 U nivers 800 mg 2-19 tablet by ity of tablet 00:00: mouth [place] 00 every 6 Medical (six) Branch hours as needed for Pain (scale 4-6). ibuprofen 2018-0 Yes [id number] 800mg Take 1 U nivers 800 mg 2-19 tablet by ity of tablet 00:00: mouth [place] 00 every 6 Medical (six) Branch hours as needed for Pain (scale 4-6). ibuprofen 2018-0 Yes [id number] 800mg Take 1 U nivers 800 mg 2-19 tablet by ity of tablet 00:00: mouth [place] 00 every 6 Medical (six) Branch hours as needed for Pain (scale 4-6). Vital Signs Vital Name Observation Time Observation Value Comments Source Systolic blood 2021-11-05 18:33:00 150 mm[Hg[facility] Diastolic blood 2021-11-05 18:33:00 122 mm[Hg] [facility] Heart rate 2021-11-05 18:33:00 96 /min [facility] Body temperature 2021-11-05 18:33:00 35.83 Melly [facility] Respiratory rate 2021-11-05 18:33:00 18 /min [facility] [place] [facility] Body weight 2021-11-05 18:33:00 68.947 kg [facility] [place] [facility] BMI 2021-11-05 18:33:00 22.45 kg/m2 [facility] ty [facility] [place] [facility] Oxygen saturation in 2021-11-05 18:33:00 100 /min University of Arterial blood by [place] [employer] indy Pulse oximetry Branch Systolic blood 2020-11-15 [...] 97 /min University of Arterial blood by [place] [employer] Pulse oximetry Branch Body temperature 2020-11-15 [...] 2020-02-13 21:05:00 100 /min Universi ty of [facility] Body temperature 2020-02-13 21:02:00 36.06 Melly [facility] [place] [facility] Respiratory rate 2020-02-13 21:02:00 17 /min [facility] [place] [facility] Body height 2020-02-13 21:02:00 175.3 cm [facility] [place] [facility] Body weight 2020-02-13 21:02:00 67.132 kg [facility] [place] [facility] BMI 2020-02-13 21:02:00 21.86 kg/m2 Universi ty of [facility] Oxygen saturation in 2020-02-13 21:02:00 96 /min University of Arterial blood by [facility] Pulse oximetry Branch Systolic blood 2020-02-12 17:00:00 142 mm[Hg] Univer sity of pressure [place] [facility] Diastolic blood 2020-02-12 17:00:00 109 mm[Hg] Unive rsity of pressure [facility] Branch Heart rate 2020-02-12 17:00:00 112 /min Universi ty of [facility] Body temperature 2020-02-12 17:00:00 36.28 Melly Univ ersity of [facility] Branch Respiratory rate 2020-02-12 17:00:00 21 /min Univ ersity of [facility] Oxygen saturation in 2020-02-12 17:00:00 95 /min University of Arterial blood by [facility] Pulse oximetry Branch Body height 2020-02-12 01:14:00 [...] Branch Heart rate 2019-11-09 04:39:00 76 /min [facility] Respiratory rate 2019-11-09 04:39:00 18 /min [facility] Oxygen saturation in 2019-11-09 04:39:00 98 /min [facility] Arterial blood by [facility] Pulse oximetry Branch Body temperature 2019-11-09 03:30:34 37.11 Melly [facility] Body height 2019-11-09 02:29:00 175.3 cm [facility] Body weight 2019-11-09 02:29:00 72.576 kg [facility] BMI 2019-11-09 02:29:00 23.63 kg/m2 [facility] Procedures Procedure Date / Time Performing Clinician Source Performed URINALYSIS 2021-11-05 19:01:00 Lee Ann Mills [facility] NOTICE OF PRIVACY 2021-11-05 18:26:00 Doctor Unassigned, No [facility]REFUSAL FOR 2021-11-05 18:25:46 Doctor Unassigned, No [facility] [place] DIAGNOSIS AND TREATMENT Name [facility] POCT TEST 2020-11-15 21:21:00 Katheryn Ames [facility] URINALYSIS 2020-11-15 21:19:00 Katheryn Ames [facility] LIPASE 2020-11-15 20:13:00 Katheryn Ames [facility] COMP. METABOLIC PANEL 2020-11-15 20:13:00 Katheryn Ames [facility] ([id number]) [facility] CBC WITH DIFF 2020-11-15 20:13:00 Katheryn Ames [facility] CONSENT/REFUSAL FOR 2020-11-15 19:22:43 Doctor Unassigned, No [facility] [place] DIAGNOSIS AND TREATMENT Name [facility] NOTICE OF PRIVACY 2020-10-10 20:26:59 Doctor Unassigned, No Univ ersity [facility] CONSENT/REFUSAL FOR 2020-10-10 20:26:45 Doctor Unassigned, No [facility] [place] DIAGNOSIS AND TREATMENT [facility] COMP. METABOLIC PANEL 2020-02-12 09:07:00 Merlin Stewart [facility] ([id number]) Medical Branch CBC WITH DIFFERENTIAL 2020-02-12 09:07:00 Merlin Stewart [facility] LACTIC ACID WHOLE BLOOD 2020-02-12 01:51:00 Jeanie Hallman [facility] BLOOD CULTURE SCREEN 2020-02-11 22:33:00 Jeanie Hallman [facility] LACTIC ACID WHOLE BLOOD 2020-02-11 22:03:00 Jeanie Hallman [facility] CRITICAL CARE 2020-02-11 21:55:26 Lexx Jeanie [facility] URINALYSIS 2020-02-11 21:53:00 Lexx [facility] ADC / LCC - DRUG SCREEN 2020-02-11 21:53:00 Jeanie Hallman [facility] TRIAGE [facility] CORONAVIRUS COVID-19 2020-02-11 21:53:00 Jeanie Hallman [facility] TESTING [facility] ACUTE CARE VENOUS BLOOD 2020-02-11 21:46:00 Jeanie Hallman [facility] GAS [facility] Branch LIPASE 2020-02-11 21:45:00 Jeanie Hallman [facility] MAGNESIUM 2020-02-11 21:45:00 [facility] TEST, SERUM 2020-02-11 21:45:00 Lexx Jeanie [facility] TROPONIN I 2020-02-11 21:45:00 Lexx [facility] FREE T4 2020-02-11 21:45:00 Lexx Jeanie [facility] THYROID STIMULATING 2020-02-11 21:45:00 Jeanie Hallman [facility] HORMONE [facility] HEPATIC FUNCTION PANEL 2020-02-11 21:45:00 Jeanie Hallman [facility] ([id number]) (ALB,T.PRO,BILI [facility] T,BU/BC,ALT,AST,ALK PHOS) BASIC METABOLIC PANEL 2020-02-11 21:45:00 Jeanie Hallman [facility] (NA, K, CL, CO2, Medical Branch GLUCOSE, BUN, CREATININE, CA) SALICYLATE 2020-02-11 21:45:00 Jeanie Hallman [facility] CBC WITH DIFFERENTIAL 2020-02-11 21:45:00 Jeanie Hallman [facility] PROTHROMBIN TIME / INR 2020-02-11 21:45:00 Jeanie Hallman [facility] ACTIVATED PARTIAL 2020-02-11 21:45:00 [facility] THRM[facility] MARY [facility] N-TERMINAL PRO-BNP 2020-02-11 21:45:00 [facility] FREE T3 2020-02-11 21:45:00 Jeanie Hallman [facility] PHOSPHORUS 2020-02-11 21:45:00 [facility] CREATINE KINASE 2020-02-11 21:45:00 Lexx [facility] EKG-12 LEAD 2020-02-11 21:37:16 Lexx [facility] TEST, SERUM 2019-11-09 04:13:00 Mateo Humphreys [facility] BASIC METABOLIC PANEL 2019-11-09 04:13:00 Mateo Humphreys [facility] (NA, K, CL, CO2, Medical [place] GLUCOSE, BUN, CREATININE, CA) CBC WITH DIFFERENTIAL 2019-11-09 04:13:00 Mateo Humphreys [facility] NOTICE OF PRIVACY 2019-11-09 02:07:51 Doctor Unassigned, No Univ [facility] PRACTICES Name [facility] CONSENT/REFUSAL FOR 2019-11-09 02:07:37 Doctor Unassigned, No [facility] DIAGNOSIS AND TREATMENT Name [facility] Encounters Start End Encounter Admission Attending Care Care Encounter Source Date/Time Date/Time Type Type Clinicians Facility Department ID 2021-08-10 Emergency [facility] [id number] Univers 21:52:29 [facility] 2021-08-10 Emergency [facility] [id number] Univers 13:54:08 [facility] 2021-11-05 2021-11-05 Emergency [facility] [id number] Univers 12:35:00 15:04:[address] [facility] 2021-11-05 2021-11-05 Emergency Lina [facility] [id number] Univers 12:35:00 15:04:00 Lee Ann MERA [id number] i ty of [place] [id number] [facility] [id number] [place] [id number] [place] 2021-10-30 2021-10-30 Outpatient R UNKNOWN, [facility] [id number] Univers 10:15:00 10:15:00 ATTENDING ity of [facility] 2020-11-15 2020-11-15 [facility] [id number] Univers 13:42:00 17:07:00 Katheryn Harkins Donnie [id number] i ty of [place] [id number] [facility] [id number] [place] [address] Branch 2020-10-10 2020-10-10 Emergency Veronica [facility] [id number] Univers 14:45:00 15:52:00 Rafy Mera [id number] i ty of [place] [id number] [facility] [id number] [address] 2020-10-10 2020-10-10 Orders Doctor NOELLE 1.2.840.114 [id number] Univers 00:00:00 00:00:00 Only Unassigned, ROB [id number] ity of [place] [facility] 4.2.7.2.686 Good as [id number] [facility] 009 Branch 2020-02-14 2020-02-14 Transition Ranjith Ba 1.2.840.114 [id number] Univers 00:00:00 00:00:00 of Care Shelby Kam [id number] ity of [place] [id number] [facility] [id number] [facility] 403 Branch 2020-02-13 2020-02-13 Urgent Provider, [facility] [id number] Univers 15:50:12 16:52:33 Care Ora [facility] [id number] ity of [place] [id number] Good as Professio [id number] Ma dical nal 0[address] [place] [address] 2020-02-13 2020-02-13 Outpatient R MAXI [facility] [id number] Univers 16:00:00 16:00:00 ORASHAYLEE quarles [facility] 2020-02-11 2020-02-12 Hospital Jeanie Hallman [facility] 1.2.840.1 [id number] Univers 16:56:30 13:25:00 Encounter Sudhakar [place] [id number] ity [facility] [id number] [facility] [id number] [address] 2020-02-11 2020-02-11 Emergency X LEXX [facility] ERT [id number] Univers 16:33:00 16:33:00 JEAINE quarles [facility] 2019-11-08 2019-11-08 Emergency Mateo Humphreys [facility] 1.2.840.114 [id number] Univers 21:24:57 23:17:00 T Donnie [id number] i ty [facility] [id number] [facility] [id number] [address] Results Test Description Test Time Test Comments Results Result Comments Source URINALYSIS 2020-11-15 22:17:00 Test Item Value Reference Range Interpretation Comme nts APPEARANCE (test code = Hazy Clear A 9284455712) COLOR (test code = 3149795006) Yellow Yellow PH (test code = 3759206433) 4.8-8.0 SP GRAVITY (test code = 1.003-1.030 5940365358) GLU U QUAL (test code = Normal Normal 8104661837) BLOOD (test code = 0603588108) Negative Negative KETONES (test code = 9004253348) 20 mg/dL Negative A PROTEIN (test code = 2887-8) Negative Negative UROBILIN (test code = Normal Normal 3220312304) BILIRUBIN (test code = Negative Negative 0878641571) NITRITE (test code = 3244487231) Negative Negative LEUK HELADIO (test code = Negative Negative 3310903266) RBC/HPF (test code = 2640592970) See_Comment [Automated message] The system which ge nerated this result transmit jeovanny reference range: 0 - 3 HP F. The reference range was not used to interpret th is result as normal/abnormal . WBC/HPF (test code = 8049633647) See_Comment [Automated message] The system which ge nerated this result transmit jeovanny reference range: 0 - 5 HP F. The reference range was not used to interpret th is result as normal/abnormal . BACTERIA (test code = Few Negative A 4751652377) MUCOUS (test code = 8858241712) Slight Negative LPF A SQ EPITH (test code = HPF 1262160495) Lab Interpretation (test code = Abnormal 07901-3) [id number] 21:21:00 Test Item Value Reference Range Interpretation Comments POCT PREG (test code = 1605) neg On board controls acceptable with yes C Line (test code = 3574) POCT PREG LOT # (test code = 3575) [id number] POCT PREG TEST DATE (test 06/11/2022 code = 3576) Lab Interpretation (test code = Normal 27916-8) [facility]. METABOLIC PANEL (26090)2020-11-15 20:40:00 Test Item Value Reference Range Interpretation Comments NA (test code = 137 mmol/L 135-145 0299261093) K (test code = 3.5 mmol/L 3.5-5 7665285197) CL (test code = 100 mmol/L 98-108 5571125960) CO2 TOTAL (test code = 28 mmol/L 23-31 7392663002) AGAP (test code = 2-16 8302669094) BUN (test code = 19 mg/dL 7-23 5629823575) GLUCOSE (test code = 82 mg/dL 70-110 5325796950) CREATININE (test code 0.80 mg/dL 0.5-1.04 = 0768529942) TOTAL BILI (test code 0.6 mg/dL 0.1-1.1 = 4131193814) CALCIUM (test code = 9.4 mg/dL 8.6-10.6 1098438722) T PROTEIN (test code = 7.9 g/dL 6.3-8.2 0971700334) ALBUMIN (test code = 4.5 g/dL 3.5-5 6958788587) ALK PHOS (test code = 85 U/L 34-122 2107422749) ALTv (test code = 9 U/L 5-35 1742-6) AST(SGOT) (test code = 25 U/L 13-40 1550360923) eGFR Calculation mL/min/1.73m2 (Non-) (test code = 8229356469) eGFR Calculation mL/min/1.73m2 () (test code = 2258792421) TERESA (test code = TERESA) Association of [...] or urine or abnormalities in imaging tests). [facility]00 Test Item Value Reference Range Interpretation Comments LIPASE (test code = 0964088427) 77 U/L 0-220 Lab Interpretation (test code = Normal 89459-1) [facility] [id number] 20:23:00 Test Item Value Reference Range Interpretation Comments WBC (test code = See_Comment [Automated message] 3290-2) The system [employer] generated this result transmitted ref erence range: 4.30 - 1 1.10 10*3/?L. The re ference range was not u sed to interpret this result as normal/abnor mal. RBC (test code = See_Comment [Automated message] 375-8) The system [employer] generated this result transmitted ref erence range: [...] RDW-SD (test code 39.8 fL 39-49.9 = 88667-5) RDW-CV (test code 12.4 % 12-15.5 = 788-0) PLT (test code = See_Comment [Automated message] 877-3) The system [employer] generated this result transmitted ref erence range: 166 - 35 8 10*3/?L. The re ference range was not u sed to interpret this result as normal/abnor mal. MPV (test code = 11.1 fL 9.5-12.9 28396-2) NRBC/100 WBC (test See_Comment [Automat ed message] code = 6174361033) The syste [employer] which generated this result transmitted ref erence range: 0.0 - 10 .0 /100 WBCs. The refer ence range was not u sed to interpret this result as normal/abnor mal. NRBC x10^3 (test <0.01 See_Comment [Automated message] code = 4559568278) The syste m which generated this result transmitted ref erence range: 10*3/?L. The reference range was not used to interpr et this result as normal/abnormal . GRAN MAT (NEUT) % 65.4 % (test code = 770-8) IMM GRAN % (test 0.30 % code = 2210153336) LYMPH % (test code 25.7 % = 736-9) MONO % (test code 6.7 % = 5905-5) EOS % (test code = 1.4 % 713-8) BASO % (test code 0.5 % = 706-2) GRAN MAT 4.78 10*3/uL 1.88-7.09 x10^3(ANC) (test code = 2851062204) IMM GRAN x10^3 <0.03 0-0.06 (test code = 6752153404) LYMPH x10^3 (test 1.88 10*3/uL 1.32-3.29 code = 731-0) MONO x10^3 (test 0.49 10*3/uL 0.33-0.92 code = 742-7) EOS x10^3 (test 0.10 10*3/uL 0.03-0.39 code = 711-2) BASO x10^3 (test 0.04 10*3/uL 0.01-0.07 code = 704-7) [facility] METABOLIC PANEL (72864)2020-02-12 11:29:00 Test Item Value Reference Range Interpretation Comments NA (test code = 137 mmol/L 135-145 3762859891) K (test code = 3.9 mmol/L 3.5-5 4411005553) CL (test code = 104 mmol/L 98-108 7474628997) CO2 TOTAL (test code = 22 mmol/L 23-31 L 5884497031) AGAP (test code = 2-16 1072966921) BUN (test code = 6 mg/dL 7-23 L 4764597192) GLUCOSE (test code = 163 mg/dL 70-110 H 5638097048) CREATININE (test code = 0.57 mg/dL 0.5-1.04 8905597715) TOTAL BILI (test code = 0.4 mg/dL 0.1-1.2 5838664592) CALCIUM (test code = 9.3 mg/dL 8.6-10.6 3196645978) T PROTEIN (test code = 7.3 g/dL 6.3-8.2 5527357828) ALBUMIN (test code = 4.2 g/dL 3.5-5 2927717852) ALK PHOS (test code = 72 U/L 34-122 7536605037) ALTv (test code = 10 U/L 5-35 1742-6) AST(SGOT) (test code = 20 U/L 13-40 5367178675) eGFR Calculation mL/min/1.73m2 (Non-) (test code = 4185750108) eGFR Calculation mL/min/1.73m2 () (test code = 4320712825) TERESA (test code = TERESA) Association of [...] tests). Lab Interpretation Abnormal (test code = 09934-6) [facility] WITH [id number] 11:08:00 Test Item Value Reference Range Interpretation Comments WBC (test code = See_Comment [Automated 9190-2) message] The sy stem which generated this [...] RDW-SD (test code = 41.2 fL 39-49.9 63040-5) RDW-CV (test code = 12.6 % 12-15.5 788-0) PLT (test code = See_Comment [Automated 777-3) message] The sy stem which generated this result transmitted reference range : 166 - 358 10*3/ ?L. The reference r zac was not used to interpret this result as normal/abnormal . MPV (test code = 12.0 fL 9.5-12.9 78573-6) NRBC/100 WBC (test See_Comment [Automat ed code = 9988145341) message] The system which generated this result transmitted reference range : 0.0 - 10.0 /100 WBCs. The refer ence range was not u sed to interpret th is result as normal/abnormal . NRBC x10^3 (test code <0.01 See_Comment [Auto mated = 6523422640) message] The s ystem which generated this result transmitted reference range : 10*3/?L. The reference range was not used to interpret this result as normal/abnormal . GRAN MAT (NEUT) % 78.7 % (test code = 770-8) IMM GRAN % (test code 0.30 % = 6635394617) LYMPH % (test code = 15.6 % 736-9) MONO % (test code = 5.0 % 5905-5) EOS % (test code = 0.1 % 713-8) BASO % (test code = 0.3 % 706-2) GRAN MAT x10^3(ANC) 8.05 10*3/uL 1.88-7.09 H (test code = 2312602058) IMM GRAN x10^3 (test 0.03 10*3/uL 0-0.06 code = 0169555312) LYMPH x10^3 (test code 1.60 10*3/uL 1.32-3.29 = 731-0) MONO x10^3 (test code 0.51 10*3/uL 0.33-0.92 = 742-7) EOS x10^3 (test code = <0.03 0.03-0.39 L 711-2) BASO x10^3 (test code 0.03 10*3/uL 0.01-0.07 = 704-7) Lab Interpretation Abnormal (test code = 40062-6) [facility] Whole [id number] 01:55:00 Test Item Value Reference Range Interpretation Comments LACTIC ACID (test code = 2.20 mmol/L 0.5-2.2 2913328733) Lab Interpretation (test code = Normal 06724-4) [facility]UM2020-05-03 01:20:00 Test Item Value Reference Range Interpretation Comments MAGNESIUM (test code = 3471027467) 1.9 mg/dL 1.7-2.4 Lab Interpretation (test code = Normal 58363-2) [facility]OSPHORUS2020-05-03 01:20:00 Test Item Value Reference Range Interpretation Comments PHOSPHORUS (test code = 5063329529) 2.1 mg/dL 2.5-5 L Lab Interpretation (test code = Abnormal 83436-3) [facility]FREE [id number] 23:16:00 Test Item Value Reference Range Interpretation Comments FREE T4 (test code = 5331687799) 1.56 ng/dL 0.78-2.2 Lab Interpretation (test code = Normal 63018-6) [facility]ETAMINOPHEN2020-05-02 23:01:00 Test Item Value Reference Range Interpretation Comments ACETAMINOP (test code = <10.0 10-30 L 3897958593) TERESA (test code = TERESA) Toxic: Greater than 200 ug/mL @ 4 hour post ingestion or greater than 50 ug/mL @ 12 hour post ingestion Lab Interpretation (test Abnormal code = 77381-3) [facility]ALICYLATE2020-05-02 23:01:00 Test Item Value Reference Range Interpretation Comments SALICYLATE (test code <10 mg/L = 4761454564) TERESA (test code = TERESA) Therapeutic Range: ? Analgesic and Antipyretic Use ? 20-100 mg/L ? ? Anti-Inflammatory Use ? 100-250 mg/L Toxic Range: ? Greater than 300 mg/L [facility]YROID STIMULATING [id number] 22:48:00 Test Item Value Reference Range Interpretation Comments TSH (test code = See_Comment [Automated message] 0755261047) The system [employer] generated this result transmitted ref erence range: 0.45 - 4 .70 mIU/L. The refe rence range was not u sed to interpret this result as normal/abnor mal. Lab Interpretation (test Normal code = 35188-9) [facility] [id number] 22:35:00 Test Item Value Reference Range Interpretation Comments FREE T3 (test code = 1293434373) 3.32 pg/mL 2.77-5.27 Lab Interpretation (test code = Normal 47122-3) [facility] ArlingtonTroponin [id number] 22:30:00 Test Item Value Reference Range Interpretation Comments TROPONIN I (test <0.012 See_Comment [Automated code = 8322625627) message] The system which generated this result [...] ? Lab Interpretation Normal (test code = 89543-2) [facility]-TERMINAL [id number] 22:26:00 Test Item Value Reference Range Interpretation Comments NT-proBNP (test code 61 pg/mL See_Comment [Autom ated = 9067928868) message] The system which generated this result transmitted reference range : <=125. The reference range was not used to interpret this result as normal/abnormal . TERESA (test code = TERESA) Biotin has been reported to cause a negative bias, interpret results relative to patient's use of biotin. Lab Interpretation Normal (test code = 20395-4) [facility]ON[facility]IRUS COVID-19 [id number] 22:23:00 Test Item Value Reference Range Interpretation Comments SARS-CoV-2 (test code = Not Detected Not Detected 77153-1) TERESA (test code = TERESA) ID NOW COVID-19 Assay is an isothermal nucleic acid amplification test intended for the qualitative detection of nucleic acid from SARS-CoV-2 viral RNA in nasopharyngeal (CLINICAL EXERCISE SPECIALIST) specimens. It is used under Emergency Use [...] indicated. Lab Interpretation Normal (test code = 70292-0) [facility] - DRUG SCREEN [id number] 22:20:00 Test Item Value Reference Range Interpretation Comments BENZO U (test code = Negative Negative 9772666907) JAYJAY U (test code = Negative Negative 0203202114) AMPHET (test code = Negative Negative 1916573179) THC (test code = Negative Negative 4882592551) METHADONE (test code = Negative Negative 3482170808) Meth U (test code = Negative Negative 1774251146) OPIATES (test code = Negative Negative 5014991910) Cocaine Metabolite (test Negative Negative code = 4406257598) PROPOXY (test code = Negative Negative 4208625367) Tric U (test code = Negative Negative 9176457423) PCP (test code = Negative Negative 1131008300) OXYCOD (test code = Negative Negative 2835997694) TERESA (test code = TERESA) Urine Drug [...] testing). Lab Interpretation (test Normal code = 44928-3) [facility] Metabolic Panel (NA, K, CL, CO2, GLUCOSE, BUN, CREATININE, CA)2020-02-11 22:18:00 Test Item Value Reference Range Interpretation Comments NA (test code = 143 mmol/L 135-145 2141918848) K (test code = 2.6 mmol/L 3.5-5 LL 3706575205) CL (test code = 103 mmol/L 98-108 8822903537) CO2 TOTAL (test code = 27 mmol/L 23-31 2242643951) AGAP (test code = 2-16 0334215437) BUN (test code = 17 mg/dL 7-23 9348021767) GLUCOSE (test code = 215 mg/dL 70-110 H 3785349208) CREATININE (test code = 0.87 mg/dL 0.5-1.04 4544601539) CALCIUM (test code = 10.2 mg/dL 8.6-10.6 8524725569) eGFR Calculation mL/min/1.73m2 (Non-) (test code = 5263275604) eGFR Calculation mL/min/1.73m2 () (test code = 6820412551) TERESA (test code = TERESA) Association of [...] tests). Lab Interpretation Abnormal (test code = 31763-1) [facility] (ALB, T.PRO, BILI T, BU/BC, ALT, AST, ALK PHOS)2020-02-11 22:18:00 Test Item Value Reference Range Interpretation Comments TOTAL BILI (test code = 6670190410) 0.5 mg/dL 0.1-1.1 BILI UNCON (test code = 3692709437) 0.6 mg/dL 0.1-1.1 BILI CONJ (test code = 5100234205) 0.0 mg/dL 0-0.3 T PROTEIN (test code = 9119947912) 8.8 g/dL 6.3-8.2 H ALBUMIN (test code = 1652975777) 5.2 g/dL 3.5-5 H ALK PHOS (test code = 0630537283) 97 U/L 34-122 ALTv (test code = 1742-6) 12 U/L 5-35 AST(SGOT) (test code = 2031727662) 26 U/L 13-40 Lab Interpretation (test code = Abnormal 00072-2) [facility] TEST, [id number] 22:18:00 Test Item Value Reference Range Interpretation Comments PREG SERUM (test code Negative = 2415012028) TERESA (test code = TERESA) Less than 10 IU/L. ?If low titer or ectopic is suspected, resubmit specimen in 48-72 hours. [facility] ArlingtonLipase [id number] 22:17:00 Test Item Value Reference Range Interpretation Comments LIPASE (test code = 6295879109) 69 U/L 0-220 Lab Interpretation (test code = Normal 62856-6) [facility] ArlingtonCREATINE [id number] 22:17:00 Test Item Value Reference Range Interpretation Comments CK (test code = 1986389557) 75 U/L 33-194 Lab Interpretation (test code = Normal 81884-4) [facility] ArlingtonProthrombin Time (PT) / [id number] 22:16:00 Test Item Value Reference Range Interpretation Comments PROTIME PATIENT (test See_Comment [Auto mated message] code = 5964-2) The system [facility] generated this result transmitted ref erence range: 12.0 - 1 4.7 Seconds. The re ference range was not u sed to interpret this result as normal/abnor mal. INR (test code = 6301-6) Nor mal INR <1.1; Warfarin Therap eutic range 2.0 to 3. 0 or 2.5 to 3.5, dep ending upon the indica tions. Lab Interpretation (test Normal code = 99083-0) [facility] ArlingtonaPTT2020-05-02 22:14:00 Test Item Value Reference Range Interpretation [...] seconds. Lab Interpretation Normal (test code = 89405-1) [facility] ArlingtonUrinalysis2020-05-02 22:13:00 Test Item Value Reference Range Interpretation Comments APPEARANCE (test code = Hazy Clear A 9164266616) COLOR (test code = Yellow Yellow 2839534147) PH (test code = 4.8-8.0 4390547283) SP GRAVITY (test code = 1.003-1.030 7269607708) GLU U QUAL (test code = Normal Normal 4569469457) BLOOD (test code = Negative Negative 3135209671) KETONES (test code = 5 mg/dL Negative A 5250119113) PROTEIN (test code = 30 mg/dL Negative A 2887-8) UROBILIN (test code = 4.0 mg/dL Normal A 6778132378) BILIRUBIN (test code = Negative Negative 5779094677) NITRITE (test code = Positive Negative A 3039306111) LEUK HELADIO (test code = 75/uL Negative A 9711622095) RBC/HPF (test code = See_Comment H [Autom ated message] 3586247507) The system [employer] generated this result transmit jeovanny reference range : 0 - 3 HPF. The refe rence range was not u sed to interpret th is result as normal/abnormal . WBC/HPF (test code = See_Comment H [Autom ated message] 8811229231) The system [employer] generated this result transmit jeovanny reference range : 0 - 5 HPF. The refe rence range was not u sed to interpret th is result as normal/abnormal . BACTERIA (test code = Many Negative A 8292779411) MUCOUS (test code = Moderate Negative LPF A 1414569737) SQ EPITH (test code = HPF 3822969704) HYAL CAST (test code = See_Comment H [Aut omated message] 1464776723) The system [employer] generated this result transmit jeovanny reference range : <=2 LPF. The refere nce range was not u sed to interpret th is result as normal/abnormal . Lab Interpretation (test Abnormal code = 63837-7) [facility] WITH [id number] 22:06:00 Test Item Value Reference Range Interpretation Comments WBC (test code = See_Comment [Automated message] 8390-2) The system [employer] generated this result transmitted ref erence range: 4.30 - 1 1.10 10*3/?L. The re ference range was not u sed to interpret this result as normal/abnor mal. RBC (test code = See_Comment [Automated message] 729-8) The system [employer] generated this result transmitted ref erence range: [...] RDW-SD (test code 41.5 fL 39-49.9 = 80228-3) RDW-CV (test code 12.8 % 12-15.5 = 788-0) PLT (test code = See_Comment [Automated message] 657-3) The system [employer] generated this result transmitted ref erence range: 166 - 35 8 10*3/?L. The re ference range was not u sed to interpret this result as normal/abnor mal. MPV (test code = 11.4 fL 9.5-12.9 89311-1) NRBC/100 WBC (test See_Comment [Automat ed message] code = 7873412467) The syste m which generated this result transmitted ref erence range: 0.0 - 10 .0 /100 WBCs. The refer ence range was not u sed to interpret this result as normal/abnor mal. NRBC x10^3 (test <0.01 See_Comment [Automated message] code = 8489633647) The syste m which generated this result transmitted ref erence range: 10*3/?L. The reference range was not used to interpr et this result as normal/abnormal . GRAN MAT (NEUT) % 65.1 % (test code = 770-8) IMM GRAN % (test 0.30 % code = 4348361418) LYMPH % (test code 27.3 % = 736-9) MONO % (test code 6.3 % = 5905-5) EOS % (test code = 0.6 % 713-8) BASO % (test code 0.4 % = 706-2) GRAN MAT 5.88 10*3/uL 1.88-7.09 x10^3(ANC) (test code = 1750841258) IMM GRAN x10^3 0.03 10*3/uL 0-0.06 (test code = 2757987590) LYMPH x10^3 (test 2.47 10*3/uL 1.32-3.29 code = 731-0) MONO x10^3 (test 0.57 10*3/uL 0.33-0.92 code = 742-7) EOS x10^3 (test 0.05 10*3/uL 0.03-0.39 code = 711-2) BASO x10^3 (test 0.04 10*3/uL 0.01-0.07 code = 704-7) [facility] Acid Whole [id number] 22:04:00 Test Item Value Reference Range Interpretation Comments LACTIC ACID (test code = 3.56 mmol/L 0.3-2.6 H 0097095022) Lab Interpretation (test code = Abnormal 82676-1) [facility] BLOOD [id number] 22:00:00 Test Item Value Reference Range Interpretation Comments PH (test code = 7.32-7.42 H 6917725432) PCO2 DAILY (test code = See_Comment L [Auto mated message] 2700649260) The system [employer] generated this result transmitted ref erence range: 41 - 51 mmHg. The reference r zac was not used to interpret this result as normal/abnor mal. PO2 DAILY (test code = See_Comment H [Autom ated message] 7366638395) The system [employer] generated this result transmitted ref erence range: 25 - 40 mmHg. The reference r zac was not used to interpret this result as normal/abnor mal. HCO3 DAILY (test code = See_Comment [Auto mated message] 3391275018) The system [employer] generated this result transmitted ref erence range: 24 - 28 mEq/L. The reference r zac was not used to interpret this result as normal/abnor mal. AC VBE(BEAKER) (test mEq/L code = 7045196068) Lab Interpretation (test Abnormal code = 75715-2) [facility] ArlingtonCritical [id number] 21:55:26Jeanie Hallman MD ? ? 02/11/2020 ?4:55 [...] re-evaluation of patient's condition and examination of [facility]UnPark[facility] HospitalCB WITH DIFFERENTIAL 2019-11-09 04:51:00 Test Item Value [...] RDW-SD (test code = 42.5 fL 39-49.9 56767-1) RDW-CV (test code = 13.2 % 12-15.5 788-0) PLT (test code = See_Comment [Automated 777-3) message] The sy stem which generated this result transmitted reference range : 166 - 358 10*3/ ?L. The reference r zac was not used to interpret this result as normal/abnormal . MPV (test code = 12.2 fL 9.5-12.9 63272-3) NRBC/100 WBC (test See_Comment [Automat ed code = 6561252509) message] The system which generated this result transmitted reference range : 0.0 - 10.0 /100 WBCs. The refer ence range was not u sed to interpret th is result as normal/abnormal . NRBC x10^3 (test code <0.01 See_Comment [Auto mated = 7567371178) message] The s ystem which generated this result transmitted reference range : 10*3/?L. The reference range was not used to interpret this result as normal/abnormal . GRAN MAT (NEUT) % 55.1 % (test code = 770-8) IMM GRAN % (test code 0.80 % = 6672910368) LYMPH % (test code = 36.2 % 736-9) MONO % (test code = 5.5 % 5905-5) EOS % (test code = 1.6 % 713-8) BASO % (test code = 0.8 % 706-2) GRAN MAT x10^3(ANC) 5.74 10*3/uL 1.88-7.09 (test code = 0144160827) IMM GRAN x10^3 (test 0.08 10*3/uL 0-0.06 H code = 6414618366) LYMPH x10^3 (test code 3.76 10*3/uL 1.32-3.29 H = 731-0) MONO x10^3 (test code 0.57 10*3/uL 0.33-0.92 = 742-7) EOS x10^3 (test code = 0.17 10*3/uL 0.03-0.39 711-2) BASO x10^3 (test code 0.08 10*3/uL 0.01-0.07 H = 704-7) Lab Interpretation Abnormal (test code = 94860-8) [facility] METABOLIC PANEL (NA, K, CL, CO2, GLUCOSE, BUN, CREATININE, CA)2019-11-09 04:33:00 Test Item Value Reference Range Interpretation Comments NA (test code = 139 mmol/L 135-145 6201036928) K (test code = 4.4 mmol/L 3.5-5 2736135755) CL (test code = 102 mmol/L 98-108 8094355557) CO2 TOTAL (test code = 27 mmol/L 23-31 5661236822) AGAP (test code = 2-16 5539618880) BUN (test code = 24 mg/dL 7-23 H 6072217669) GLUCOSE (test code = 106 mg/dL 70-110 6595593865) CREATININE (test code = 0.88 mg/dL 0.5-1.04 2714760961) CALCIUM (test code = 10.0 mg/dL 8.6-10.6 0934047207) eGFR Calculation mL/min/1.73m2 (Non-) (test code = 6756865862) eGFR Calculation mL/min/1.73m2 () (test code = 3000142070) TERESA (test code = TERESA) Association of [...] tests). Lab Interpretation Abnormal (test code = 90903-6) [facility], [id number] 04:31:00 Test Item Value Reference Range Interpretation Comments PREG SERUM (test code Negative = 0791298776) TERESA (test code = TERESA) Less than 10 IU/L. ?If low titer or ectopic is suspected, resubmit specimen in 48-72 hours. [facility]"
[2022-09-22 10:52] LABS: SARS-COV-2 RT PCR NEGATIVE (NEGATIVE)
--- NOTE | 2022-09-22 12:10 | ER ---
Nurse's Notes [facility] Rosie Name: Linda Urena Age: 47 yrs Sex: Female : 1975 Arrival Date: 09/22/2022 Time: 09:50 Bed IW1 Private MD: Diagnosis: Pneumonia, unspecified organism Presentation: 09/22 09:57 Chief complaint: Patient states: flu symptoms since Thursday, getting worse - cough, jh5 congestion, body aches, taking over the counter and not helping. Coronavirus screen: Vaccine status: Patient reports receiving the 2nd dose of the covid vaccine. Client denies travel out of the [place] in the last 14 days. Ebola Screen: Patient negative for fever greater than or equal to 101.5 degrees Fahrenheit, and additional compatible Ebola Virus Disease symptoms Patient denies exposure to infectious person. Patient denies travel to an Ebola-affected area in the 21 days before illness onset. 09:57 Method Of Arrival: Ambulatory [facility] 09:58 Initial Sepsis Screen: Does the patient meet any 2 criteria? No. Patient's initial 5 sepsis screen is negative. Does the patient have a suspected source of infection? No. Patient's initial sepsis screen is negative. Risk Assessment: Do you want to hurt yourself or someone else? Patient reports no desire to harm self or others. 09:58 Acuity: MARYSOL 3 jh5 12:40 Onset of symptoms is unknown. ap3 Triage Assessment: 09:59 General: Appears in no apparent distress. Behavior is calm, cooperative, appropriate 5 for age. Pain: Denies pain. 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 - Social history:: Smoking status: Patient denies any tobacco usage or history of. Screenin:39 Abuse screen: Denies threats or abuse. Nutritional screening: No deficits noted. ap3 Tuberculosis screening: No symptoms or risk factors identified. Fall Risk No fall in past 12 months (0 pts). Vital Signs: 09:58 BP 189 / 120; Pulse 100; Resp 18; Temp 98.3; Pulse Ox 97% ; Weight 74.39 kg; Height 5 jh5 ft. 9 in. (175.26 cm); Pain 0/10; 09:58 Body Mass Index 24.22 (74.39 kg, 175.26 cm) [facility] ED Course: 09:50 Patient arrived in ED. rg4 09:50 Waldo Rodriguez PA is PHCP. [facility] 09:50 Baron Morales DO is Attending Physician. [facility] 09:59 Triage completed. [facility] 09:59 Arm band placed on right wrist. [facility] 10:02 PHCP role handed off by Waldo Rodriguez PA jr 10:02 Bacilio Joseph PA is PHCP. [facility] 10:04 COVID-19/FLU A+B Sent. ap3 11:48 Chest Pa And Lat (2 Views) In Process Unspecified. EDMS 12:39 Patient has correct armband on for positive identification. ap3 12:39 No provider procedures requiring assistance completed. Patient did not have IV access ap3 during this emergency room visit. Administered Medications: No medications were administered Medication: 12:39 VIS not applicable for this client. ap3 Outcome: 12:09 Discharge ordered by . jr 12:40 Discharged to home ambulatory. ap3 12:40 Condition: good 12:40 Discharge instructions given to patient, Instructed on discharge instructions, follow up and referral plans. medication usage, Demonstrated understanding of instructions, follow-up care, medications, Prescriptions given X 2. 12:44 Patient left the ED. ap3 Signatures: Dispatcher [employer] EDSC Waldo Rodriguez PA PA [facility] Bacilio Joseph PA PA jr8 Nichelle Clifford 4 Trinity Johnson, RN RN ap3 Phylicia Sheets RN RN 5
--- NOTE | 2022-09-22 12:10 | EDPHYS ---
Physician Documentation [facility] Name: Linda Urena Age: 47 yrs Sex: Female : 1975 Arrival Date: 09/22/2022 Time: 09:50 Bed IW1 Private MD: ED Physician Baron Morales HPI: 09/22 10:53 This 47 yrs old Female presents to ER via Ambulatory with complaints of Flu Symptoms. jr8 10:53 Onset: The symptoms/episode began/occurred suddenly. Associated signs and symptoms: jr8 Pertinent positives: congestion, cough, headache, shortness of breath. Modifying factors: The patient symptoms are alleviated by nothing, the patient symptoms are aggravated by activity. The patient has not experienced similar symptoms in the past. The patient has not recently seen a physician. [employer]: 12:39 LMP N/A - Irregular menses ap3 Historical: - Allergies: 12:40 No Known Allergies; ap3 - PMHx: 09:59 Hypertensive disorder; jh5 - Immunization history:: Adult Immunizations up to date. - Social history:: Smoking status: Patient denies any tobacco usage or history of. ROS: 10:53 Eyes: Negative for injury, pain, redness, and discharge, ENT: Negative for injury, jr8 pain, and discharge, Neck: Negative for injury, pain, and swelling, Cardiovascular: Negative for chest pain, palpitations, and edema, Abdomen/GI: Negative for abdominal pain, nausea, vomiting, diarrhea, and constipation, Back: Negative for injury and pain, MS/Extremity: Negative for injury and deformity, Skin: Negative for injury, rash, and discoloration. 10:53 Constitutional: Positive for body aches, chills, malaise. 10:53 Respiratory: Positive for cough, shortness of breath. 10:53 Neuro: Positive for headache. Exam: 10:53 Constitutional: This is a well developed, well nourished patient who is awake, alert, jr8 and in no acute distress. Eyes: Pupils equal round and reactive to light, extra-ocular motions intact. Lids and lashes normal. Conjunctiva and sclera are non-icteric and not injected. Cornea within normal limits. Periorbital areas with no swelling, redness, or edema. ENT: Nares patent. No nasal discharge, no septal abnormalities noted. Tympanic membranes are normal and external auditory canals are clear. Oropharynx with no redness, swelling, or masses, exudates, or evidence of obstruction, uvula midline. Mucous membranes moist. Neck: Trachea midline, no thyromegaly or masses palpated, and no cervical lymphadenopathy. Supple, full range of motion without nuchal rigidity, or vertebral point tenderness. No Meningismus. Cardiovascular: Regular rate and rhythm with a normal S1 and S2. No gallops, murmurs, or rubs. Normal PMI, no JVD. No pulse deficits. Respiratory: Lungs have equal breath sounds bilaterally, clear to auscultation and percussion. No rales, rhonchi or wheezes noted. No increased work of breathing, no retractions or nasal flaring. Abdomen/GI: Soft, non-tender, with normal bowel sounds. No distension or tympany. No guarding or rebound. No evidence of tenderness throughout. Back: No spinal tenderness. No costovertebral tenderness. Full range of motion. Skin: Warm, dry with normal turgor. Normal color with no rashes, no lesions, and no evidence of cellulitis. MS/ Extremity: Pulses equal, no cyanosis. Neurovascular intact. Full, normal range of motion. Neuro: Awake and alert, GCS 15, oriented to person, place, time, and situation. Cranial nerves II-XII grossly intact. Motor strength 5/5 in all extremities. Sensory grossly intact. Vital Signs: 09:58 BP 189 / 120; Pulse 100; Resp 18; Temp 98.3; Pulse Ox 97% ; Weight 74.39 kg; Height 5 5 ft. 9 in. (175.26 cm); Pain 0/10; 09:58 Body Mass Index 24.22 (74.39 kg, 175.26 cm) 5 MDM: 10:02 Patient medically screened. jr8 12:07 Differential diagnosis: bronchitis, pneumonia covid, flu. Data reviewed: vital signs, jr8 nurses notes, lab test result(s), radiologic studies, plain films. Data interpreted: Pulse oximetry: on room air is 97 %. Interpretation: normal. Test interpretation: by ED physician or midlevel provider: plain radiologic studies, Suspected pneumonia right middle lobe. Counseling: I had a detailed discussion with the patient and/or guardian regarding: the historical points, exam findings, and any diagnostic results supporting the discharge/admit diagnosis, lab results, radiology results, the need for outpatient follow up, a family practitioner, to return to the emergency department if symptoms worsen or persist or if there are any questions or concerns that arise at home. 12:15 ED course: Discussed with patient that her flu and COVID were negative but there is a jr8 right medial lobe opacity consistent with mild pneumonia. Recommended that we put her on antibiotics and will give her cough medicine as well. Needs to continue regimen and finish it. If she were to acutely worsen, get more short of breath, or run high fevers to come back for further evaluation. Otherwise needs to follow-up with her primary care to ensure resolution of symptoms. 09/22 09:58 Order name: COVID-19/FLU A+B; Complete Time: 10:53 jh5 09/22 11:33 Order name: Chest Pa And Lat (2 Views); Complete Time: 12:14 EDMS Administered Medications: No medications were administered Disposition: 18:22 Co-signature as Attending Physician, Baron CIFUENTES was immediately available onsite ms3 in the emergency department for consultation in the care of the patient. Disposition Summary: 09/22/22 12:09 Discharge Ordered Location: Home jr8 Problem: new jr8 Symptoms: have improved jr8 Condition: Stable jr8 Diagnosis - Pneumonia, unspecified organism jr8 Followup: jr8 - With: Private Physician - When: 1 week - Reason: Recheck today's complaints, Continuance of care, Re-evaluation by your physician Discharge Instructions: - Discharge Summary Sheet jr8 - Community-Acquired Pneumonia, Adult jr8 Forms: - Medication Reconciliation Form jr8 - Thank You Letter jr8 - Antibiotic Education jr8 - Prescription Opioid Use jr8 - Work release form ap3 Prescriptions: - promethazine-DM 6.25-15 mg/5 mL Oral syrup - take 5 milliliter by ORAL route every 4-6 hours as needed, not to exceed 30 mL jr8 in 24 hours; 120 milliliter; Refills: 0, Product Selection Permitted - Zithromax Z-Brent 250 mg Oral Tablet - take 1 tablet by ORAL route as directed for 5 days Day 1 - take two (2) tablets jr8 one time. Day 2, 3, 4 , 5 take one (1) tablet once daily.; 6 tablet; Refills: 0, Product Selection Permitted Signatures: Dispatcher [employer] EDMS Bacilio Joseph PA PA jr8 Trinity Johnson, RN RN ap3 Baron Morales DO DO ms3 Phylicia Sheets RN RN jh5 Corrections: (The following items were deleted from the chart) 11:33 10:00 Chest Single View+[email or web address] ordered. EDMS EDMS
--- NOTE | 2022-09-22 12:13 | RAD REPORT ---
EXAM DESCRIPTION: Jj Pa And Lat (2 Views)09/22/2022 11:46 am CLINICAL HISTORY: Congestion COMPARISON: May 2022 FINDINGS: Mild medial right lower lobe opacity. Left lung appears clear. Heart is borderline enlarged IMPRESSION: Mild medial right lower lobe opacity probably mild pneumonia
[2022-09-22 12:53] VITALS: BP 189/120; TEMP 98.3; O2SAT 97
== END 2022-09-22 12:44 | disposition home or self-care (01) ==
LOC: ER 09:48
DX: J18.9 Pneumonia, unspecified organism (principal); Z20.822 Contact with and (suspected) exposure to COVID-19; I10 Essential (primary) hypertension
CPT/HCPCS: 0240U; 71046; 99283